=== PATIENT | female | born 1940 | race Caucasian/White ===

== ENCOUNTER 2017-01-17 12:01 | Inpatient (IN) | payer MEDICARE, BC ==
[2017-01-17 13:04] LABS: Hematocrit 43 % (35-47); Hemoglobin 14.1 g/dl (12.0-16.0); Mean Corpuscular HGB Conc 33 g/dl (31-36); Mean Corpuscular Hemoglobin 28 pg (27-31); Mean Corpuscular Volume 86 fL (80-97); Mean Platelet Volume 9 um3 (7.4-10.4); Red Blood Count 5.01 10^6/ul (4.0-5.4); Red Cell Distribution Width 14 % (10.5-15); White Blood Count 14.3 10^3/ul (3.5-10.8)
[2017-01-17 13:30] LABS: Albumin 3.6 g/dL (3.2-5.2); BUN/Creatinine Ratio 32.2 (8-20); Calcium 9.5 mg/dL (8.6-10.3); EGFR African American 127.1 (>60); EGFR Non-African American 98.8 (>60); Globulin 3.4 g/dL (2-4); Magnesium 1.2 mg/dL (1.9-2.7); Total Bilirubin 0.4 mg/dL (0.2-1.0)
[2017-01-17 13:34] LABS: Troponin I 0.13 ng/mL (<0.04)
[2017-01-17] MEDS ORDERED: Iodixanol* (CONTRAST) 320 MG/ML 100 ML SDV IV ONE (13:56)
--- NOTE | 2017-01-17 14:01 | RAD ---
INDICATION: Chest pain COMPARISON: May 13, 2003 TECHNIQUE: An AP portable view obtained at 1320 hours is submitted. FINDINGS: Bones/Soft Tissues: There are no acute bony findings. There is left-sided cardiac pacemaker. Cardiomediastinal: The cardiac silhouette is at the upper limits of normal in size. There is interstitial prominence likely related to mild passive congestion. There was a similar appearance previously, however. Lungs: There are no focal infiltrates. Pleura: There are no pleural effusions. Other: None IMPRESSION: SUSPECT MILD PULMONARY VENOUS CONGESTION. THIS APPEARS CHRONIC
[2017-01-17] MEDS ORDERED: Morphine INJ* 2 MG/ML 1 ML SYRINGE IV PRN (14:32)
[2017-01-17] MEDS ORDERED: Dextrose 50% Syringe 50 ML* 25 GM/50 ML SYRINGE IV PUSH PRN (14:46)
--- NOTE | 2017-01-17 15:34 | RAD ---
CLINICAL HISTORY: Right upper quadrant pain, chest pain COMPARISON: February 15, 2012 TECHNIQUE: Multiple contiguous axial CT scans were obtained of the abdomen and pelvis after the administration of intravenous contrast. Coronal and sagittal multiplanar reformations are submitted for review. Oral contrast was administered. Delayed images were obtained through the abdomen and pelvis. FINDINGS: LUNG BASES: There is a small right pleural effusion LIVER: The liver is diffusely low in attenuation compared to the spleen. There are no focal hepatic parenchymal masses. BILE DUCTS: There is no intrahepatic or extrahepatic biliary dilatation. GALLBLADDER: The gallbladder is not visualized. Surgical clips are noted in the gallbladder fossa. PANCREAS: There has been interval development of a low-attenuation cystic lesion of the body of the pancreas measuring 1.3 cm in size. There is no pancreatic ductal dilatation. SPLEEN: Normal in size and appearance. UPPER GI TRACT: Evaluation of the gastrointestinal tract is limited by incomplete gastric distention. The upper GI tract is unremarkable. SMALL BOWEL AND MESENTERY: The small bowel is normal in contour, course, and caliber. There is no obstruction or dilatation. COLON: There are multiple diverticula of the sigmoid colon. There is no pericolonic inflammatory change. ADRENALS: Normal bilaterally. KIDNEYS: The kidneys are normal in shape, size, contour, and axis. There is no hydronephrosis or nephrolithiasis. BLADDER: The bladder is smooth in contour. PELVIC ORGANS: The uterus and adnexa are grossly normal for technique. AORTA: There is calcific atherosclerotic disease of the abdominal aorta and its branches, without aneurysmal dilatation IVC: Unremarkable LYMPH NODES: There is no lymphadenopathy by size criteria. ABDOMINAL WALL: There is no evidence for abdominal wall hernia. BONES AND SOFT TISSUES: There are mild diffuse degenerative changes. OTHER: None IMPRESSION: 1. 1.3 CM LOW-ATTENUATION CYSTIC LESION OF THE BODY OF THE PANCREAS. 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 THERE IS NO PANCREATIC DUCTAL DILATATION. 2. FATTY LIVER. 3. STATUS POST COLOSTOMY. 4. DIVERTICULOSIS. 5. ATHEROSCLEROSIS. 6. SMALL RIGHT PLEURAL EFFUSION
[2017-01-17] MEDS: Nitroglycerin 0.2 MG/HR PATCH* (5 MG) TRANSDERM SCH (15:46)
[2017-01-17] MEDS: Insulin LISPRO* 1 UNITS UNIT SUBCUT SCH (16:42)
[2017-01-17] MEDS ORDERED: Warfarin TAB(*) 5 MG PO SCH (17:00)
--- NOTE | 2017-01-17 17:19 | ED ---
Deric Martinez Adam, scribed for Sonja Barrientos MD on 01/17/17 at 1256 . HPI Chest Pain - HPI Summary HPI Summary: Pt is a 76 year old female presenting with CP. She went to her PCP for routine lab work today but after complaining of CP she was sent to the ED. She states that she has been having CP intermittently for months. She also reports CROUCH and she currently "does not feel good." EMS administered NTG en route with no relief and they also gave ASA. Pt denies calf pain. PMHx includes ICD, A Fib ( on coumadin), DM, HTN, and HLD. Surgical Hx of choly and appy. No Hx of blood clots or lung disease. FMHx of OK. - History of Current Complaint Time Seen by Provider: 01/17/17 12:35 Hx Obtained From: Patient Onset/Duration: Started Weeks Ago, Atraumatic, Still Present Timing: Intermittent Initial Severity: Moderate Current Severity: Moderate Chest Pain Location: Discrete at: - Epigastrium/RUQ Aggravating Factor(s): Nothing Alleviating Factor(s): Nothing Associated Signs and Symptoms: Positive: Other: - CROUCH - Allergy/Home Medications Allergies/Adverse Reactions: Allergies Allergy/AdvReac Type Severity Reaction Status Date / Time Acetaminophen Allergy Swelling Verified 02/10/16 17:26 Of Face,Lips,& Throat Diazepam [From Valium] Allergy Blurred Verified 02/10/16 17:26 Vision Diphenhydramine Allergy Blurred Verified 02/10/16 17:26 [From Benadryl] Vision Niacin Allergy Itching Verified 02/10/16 17:26 Simvastatin [From Vytorin] Allergy Muscle Ache Verified 02/10/16 17:26 Statins Allergy Muscle Ache Verified 02/10/16 17:26 Home Medications: Home Medications Atenolol TAB* [Tenormin TAB* 50 MG] 25 mg PO QAM 01/17/17 [History Confirmed ] Atenolol TAB* [Tenormin TAB* 50 MG] 50 mg PO BEDTIME 01/17/17 [History Confirmed 01/17/17] Cholecalciferol [Vitamin D3] 800 unit PO DAILY 01/17/17 [History Confirmed 01/17] Cyanocobalamin TAB* [Vitamin B12 TAB*] 500 - 1,000 mcg PO DAILY 01/17/17 [ History Confirmed 01/17/17] Digoxin TAB* [Lanoxin TAB*] 0.125 mg PO DAILY 01/17/17 [History Confirmed ] Diltiazem CD CAP* [Cardizem CD CAP*] 360 mg PO DAILY 01/17/17 [History Confirmed 01/17/17] Hydrochlorothiazide TAB* [Hydrodiuril TAB*] 25 mg PO DAILY 01/17/17 [History Confirmed 01/17/17] Levothyroxine TAB* [Synthroid TAB*] 137 mcg PO DAILY 01/17/17 [History Confirmed 01/17/17] Nitroglycerin TAB 0.4 MG* 0.4 mg SL Q5M PRN 01/17/17 [History Confirmed 01/17/17 ] Nitroglycerin [Nitro-Dur] 0.2 mg TOPICAL QAM 01/17/17 [History Confirmed ] [place]-3 Fatty Acids [[place] 3] 3 cap PO DAILY 01/17/17 [History Confirmed ] Oxybutynin TAB* [Ditropan TAB*] 2.5 mg PO BID 01/17/17 [History Confirmed ] Pitavastatin (NF) [Livalo (NF)] 1 mg PO EVERY OTHER DAY 01/17/17 [History Confirmed 01/17/17] Potassium Chloride Microencaps [Klor-Con M20] 40 meq PO DAILY 01/17/17 [History Confirmed 01/17/17] Ramipril CAP* [Altace CAP*] 2.5 mg PO DAILY 01/17/17 [History Confirmed 01/17/17 ] Torsemide [Demadex 10 MG] 10 mg PO .THREE TIMES A WEEK PRN 01/17/17 [History Confirmed 01/17/17] glipiZIDE TAB.XL* [Glucotrol XL*] 5 mg PO QAM 01/17/17 [History Confirmed ] metFORMIN* [Glucophage 850 MG TAB *] 850 mg PO TID 01/17/17 [History Confirmed 01/17/17] PMH/Surg Hx/FS Hx/Imm Hx Endocrine/Hematology History: Reports: Hx Anticoagulant Therapy, Hx Diabetes - TYPE II- ON ORAL MEDICATION FOR, Hx Thyroid Disease - HYPOTHYROID Cardiovascular History: Reports: Hx Angina, Hx Coronary Artery Disease, Hx Hypercholesterolemia, Hx Hypertension - ON MEDICATION FOR, Hx Pacemaker/ICD - DR. RANGEL FOLLOWS, Hx Valvular Heart Disease, Other Cardiovascular Problems/ Disorders - HX OF A-FIB;CAROTID STENOSIS Denies: Hx Myocardial Infarction Respiratory History: Denies: Hx Asthma, Hx Chronic Obstructive Pulmonary Disease (COPD) GI History: Reports: Hx Ulcer - HX OF Musculoskeletal History: Reports: Hx Arthritis - NECK, HANDS, KNEES Denies: Hx Osteoporosis Sensory History: Reports: Hx Cataracts, Hx Contacts or Glasses - GLASSES-READING Denies: Hx Hearing Aid Opthamlomology History: Reports: Hx Cataracts, Hx Contacts or Glasses - GLASSES- READING - Surgical History Surgery Procedure, Year, and Place: appe-1947, miscarriages wtih D&c. pacer- 2006 AND 2013. tonsils AND ADENOIDECTOMY-1946. carotid endarterectomy- BILATERAL. [place]. ADHESIONS-1979. BILATERAL CATARACTS-2006 Hx Anesthesia Reactions: No Infectious Disease History: Reports: History Other Infectious Disease - [facility] - 2002 Denies: Hx Clostridium Difficile, Hx Hepatitis, Hx Human Immunodeficiency Virus (HIV), Hx of Known/Suspected MRSA, Hx Shingles, Hx Tuberculosis - Family History Known Family History: Positive: Cardiac Disease - CAD, [place] - Social History Occupation: Retired Lives: Alone Alcohol Use: None Hx Substance Use: No Substance Use Type: Reports: None Hx Tobacco Use: Yes Smoking Status (MU): Former Smoker Amount Used/How Often: 3/4 PPD X 20 YEARS Have You Smoked in the Last Year: No Review of Systems Positive: Chest Pain Positive: Shortness Of Breath Negative: Myalgia All Other Systems Reviewed And Are Negative: Yes Physical Exam Triage Information Reviewed: Yes Vital Signs On Initial Exam: Initial Vitals Temp Pulse Resp BP Pulse Ox 98.4 F 62 20 153/57 96 01/17/17 12:39 01/17/17 12:39 01/17/17 12:39 01/17/17 12:39 01/17/17 12:39 Vital Signs Reviewed: Yes Appearance: Positive: Well-Appearing, No Pain Distress Skin: Positive: Warm, Skin Color Reflects Adequate Perfusion, Dry Eyes: Positive: EOMI, [place] ENT: Positive: Pharynx normal, TMs normal Neck: Positive: Supple, Nontender Respiratory/Lung Sounds: Positive: Clear to Auscultation, Breath Sounds Present Cardiovascular: Positive: RRR - Heart sounds are distant. Negative: Murmur, Rub Abdomen Description: Positive: Soft, Other: - RUQ/epigastric tenderness. Negative: Distended, Guarding Bowel Sounds: Positive: Present Musculoskeletal: Positive: Strength/ROM Intact. Negative: Edema Left, Edema Right Neurological: Positive: Sensory/Motor Intact, Alert, Oriented to Person Place, Time, CN Intact II-III Psychiatric: Positive: Affect/Mood Appropriate Diagnostics - Vital Signs Vital Signs Temp Pulse Resp BP Pulse Ox 01/17/17 13:00 65 20 153/57 92 01/17/17 12:53 72 22 92 01/17/17 12:51 171/62 01/17/17 12:39 98.4 F 62 20 153/57 96 - Laboratory Lab Results: Lab Results 01/17/17 01/17/17 01/17/17 Range/Units 12:55 12:55 12:55 WBC 14.3 H (3.5-10.8) 10^3/ul RBC 5.01 (4.0-5.4) 10^6/ul Hgb 14.1 (12.0-16.0) g/dl Hct 43 (35-47) % MCV 86 (80-97) fL MCH 28 (27-31) pg MCHC 33 (31-36) g/dl RDW 14 (10.5-15) % Plt Count 275 (150-450) 10^3/ul MPV 9 (7.4-10.4) um3 Neut % (Auto) 82.0 (38-83) % Lymph % (Auto) 10.4 L (25-47) % [place] % (Auto) 6.8 (1-9) % Eos % (Auto) 0.4 (0-6) % Baso % (Auto) 0.4 (0-2) % Absolute Neuts (auto) 11.7 H (1.5-7.7) 10^3/ul Absolute Lymphs (auto) 1.5 (1.0-4.8) 10^3/ul Absolute Monos (auto) 1.0 H (0-0.8) 10^3/ul Absolute Eos (auto) 0.1 (0-0.6) 10^3/ul Absolute Basos (auto) 0.1 (0-0.2) 10^3/ul Absolute Nucleated RBC 0.02 10^3/ul Nucleated RBC % 0.1 INR (Anticoag Therapy) (0.89-1.11) D-Dimer, Quantitative (Less Than 230) ng/mL Sodium 136 (133-145) mmol/L Potassium 4.0 (3.5-5.0) mmol/L Chloride 99 L (101-111) mmol/L Carbon Dioxide 28 (22-32) mmol/L Anion Gap 9 (2-11) mmol/L BUN 19 (6-24) mg/dL Creatinine 0.59 (0.51-0.95) mg/dL Est GFR ( Amer) 127.1 (>60) Est GFR (Non-Af Amer) 98.8 (>60) BUN/Creatinine Ratio 32.2 H (8-20) Glucose 161 H (70-100) mg/dL Lactic Acid 2.9 H* (0.5-2.0) mmol/L Calcium 9.5 (8.6-10.3) mg/dL Magnesium 1.2 L (1.9-2.7) mg/dL Total Bilirubin 0.40 (0.2-1.0) mg/dL AST 17 (13-39) U/L ALT 17 (7-52) U/L Alkaline Phosphatase 55 (34-104) U/L Troponin I 0.13 H* (<0.04) ng/mL Total Protein 7.0 (6.4-8.9) g/dL Albumin 3.6 (3.2-5.2) g/dL Globulin 3.4 (2-4) g/dL Albumin/Globulin Ratio 1.1 (1-3) Lipase 16 (11.0-82.0) U/L 01/17/17 Range/Units 12:55 WBC (3.5-10.8) 10^3/ul RBC (4.0-5.4) 10^6/ul Hgb (12.0-16.0) g/dl Hct (35-47) % MCV (80-97) fL MCH (27-31) pg MCHC (31-36) g/dl RDW (10.5-15) % Plt Count (150-450) 10^3/ul MPV (7.4-10.4) um3 Neut % (Auto) (38-83) % Lymph % (Auto) (25-47) % [place] % (Auto) (1-9) % Eos % (Auto) (0-6) % Baso % (Auto) (0-2) % Absolute Neuts (auto) (1.5-7.7) 10^3/ul Absolute Lymphs (auto) (1.0-4.8) 10^3/ul Absolute Monos (auto) (0-0.8) 10^3/ul Absolute Eos (auto) (0-0.6) 10^3/ul Absolute Basos (auto) (0-0.2) 10^3/ul Absolute Nucleated RBC 10^3/ul Nucleated RBC % INR (Anticoag Therapy) 2.57 H (0.89-1.11) D-Dimer, Quantitative < 200 (Less Than 230) ng/mL Sodium (133-145) mmol/L Potassium (3.5-5.0) mmol/L Chloride (101-111) mmol/L Carbon Dioxide (22-32) mmol/L Anion Gap (2-11) mmol/L BUN (6-24) mg/dL Creatinine (0.51-0.95) mg/dL Est GFR ( Amer) (>60) Est GFR (Non-Af Amer) (>60) BUN/Creatinine Ratio (8-20) Glucose (70-100) mg/dL Lactic Acid (0.5-2.0) mmol/L Calcium (8.6-10.3) mg/dL Magnesium (1.9-2.7) mg/dL Total Bilirubin (0.2-1.0) mg/dL AST (13-39) U/L ALT (7-52) U/L Alkaline Phosphatase (34-104) U/L Troponin I (<0.04) ng/mL Total Protein (6.4-8.9) g/dL Albumin (3.2-5.2) g/dL Globulin (2-4) g/dL Albumin/Globulin Ratio (1-3) Lipase (11.0-82.0) U/L Result Diagrams: 01/17/17 12:55 01/17/17 12:55 Lab Statement: Any lab studies that have been ordered have been reviewed, and results considered in the medical decision making process. - Radiology CXR Radiology Interpretation Completed By: Radiologist - IMPRESSION: SUSPECT MILD PULMONARY VENOUS CONGESTION. THIS APPEARS CHRONIC - CT A/P CT Interpretation Completed By: Radiologist - IMPRESSION: 1. 1.3 CM LOW- ATTENUATION CYSTIC LESION OF THE BODY OF THE PANCREAS. 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 THERE IS NO PANCREATIC DUCTAL DILATATION. 2. FATTY LIVER. 3. STATUS POST COLOSTOMY. - EKG 13:58 Cardiac Rate: NL - 68 BPM EKG Interpretation: Paced rhythm - Additional Comments Diagnostic Additional Comments: Troponin I - 0.13 (12:55), 0.98 (15:49) Lactic Acid - 2.9 Chest Pain Course/Dx - Course Course Of Treatment: Case discussed early with Dr. Wheeler given pts cp and abd pain she accepted pt for admission. pt did have a bump in her troponin and her CT abd after pt was already onfloor ended up showing a pancreatic mass. - Diagnoses Provider Diagnoses: CHEST PAIN R/O ACS - Provider Notifications Discussed Care Of Patient With: Dr. Negrete at 13:15. She accepts admission of the patient. Discharge - Discharge Plan Condition: Stable Disposition: ADMITTED TO [facility] documentation as recorded by the Deric esparza Adam accurately reflects the service I personally performed and the decisions made by me, Sonja Barrientos MD.
[2017-01-17] MEDS: Oxybutynin TAB* 5 MG PO SCH (20:26)
[2017-01-17] MEDS: Atenolol TAB* 50 MG PO SCH (20:26)
[2017-01-17] MEDS ORDERED: Metoprolol Tartrate TAB* 25 MG PO SCH (21:00)
--- NOTE | 2017-01-17 22:48 | HP ---
HOSPITAL MEDICINE HISTORY AND PHYSICAL: DATE OF ADMISSION: 01/17/17 PRIMARY CARE PHYSICIAN: Dr. Cohen. ATTENDING PHYSICIAN: Dr. Grier * (dictation provided by Demetria Mata NP) CHIEF COMPLAINT: Chest pain. HISTORY OF PRESENT ILLNESS: Ms. Saravia is a 76-year-old female with a past medical history of diabetes; atrial fibrillation, on warfarin; coronary artery disease; and CHF who presents today to the hospital with concern for chest pain. Ms. Saravia states that she has had ongoing chest pain for the past 2 to 3 months. 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 She states that she has been now having chest pain when walking across the parking lot from her car into her home. She had an episode of chest pain, which was associated with nausea while waiting to have her tires replaced at [employer]. She has been woken from sleep with chest pain. Today, she was having a sharp chest pain midsternally to the epigastric region at home. She states that it radiates up into both of her jaws and down into her right arm. She stated that it was very severe. She drove from her home to Dr. Cohen's office where she was scheduled for a routine INR. She continued to have pain throughout the drive and actually had to line puller to the side of the road due to the severity of the pain to take a nitroglycerin tablet. She took 2 nitroglycerin tablets and despite this, she continued to have pain. She went on to Dr. Cohen's office for the scheduled blood draw where she told staff that she was not feeling well. When she described her symptoms of severe chest pain, they evaluated her and had her sent to the emergency room. The patient states that her pain continued up until the time she arrived in the ED and she is now pain free. She denies any recent fevers, chills, cough, sore throat, shortness of breath, nausea, abdominal pain. She states that she has had ongoing chronic diarrhea for about 3 years. Ms. Saravia reported to have had two cardiac catheterizations in 2015. When I asked her why, she states that it was "just routine." She was seen by Dr. Miles in October 2015 with the cath that showed questionable left main stenosis and therefore she was asked to come back and was seen on 12/19/15 for a repeat cardiac catheterization. This actually showed nonischemic functional flow through the left main into the LAD and into the circumflex and the plan was for continued medical management. The patient states as of last year, she had not been having pain and this new pain had developed over the past 2 to 3 months. In the emergency room, Ms. Saravia had a chest x-ray, which showed mild pulmonary vascular congestion, which appeared to be chronic in nature. She had an EKG, which showed a partially paced rhythm and partial atrial fibrillation. There are some significant T-wave inversions in II, III, and aVF although it is difficult to interpret in comparison with her previous EKGs, but it does not appear new. She has a troponin, which was elevated to 2.13, lactic acid 2.9. Her white blood cell count is elevated also at 14.3. PAST MEDICAL HISTORY: 1. Type 2 diabetes, non-insulin dependent. 2. Atrial fibrillation, on warfarin. 3. Coronary artery disease. 4. History of bradycardia, status post pacemaker. 5. CHF, diastolic. 6. Hyperlipidemia. 7. Hypothyroidism. 8. Obesity. 9. Hypertension. 10. Aortic stenosis, moderate. 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 12. History of cholecystectomy. 13. History of appendectomy. 14. History of basal cell carcinoma on her nose, status post excision. 15. History of lysis of adhesions. MEDICATIONS: 1. Cholecalciferol 800 units p.o. daily. 2. Cyanocobalamin 500 to 1000 mcg p.o. daily. 3. Nitroglycerin 0.2 mg topically q.a.m. 4. Nitroglycerin tablets 0.4 mg sublingual q.5 minutes p.r.n. 5. [place] 3 fatty acids 3 capsules p.o. daily. 6. Pitavastatin 1 mg p.o. every other day. 7. Torsemide 10 mg p.o. 3 times weekly as needed. 8. Glipizide 5 mg p.o. q.a.m. 9. Metformin 850 mg p.o. t.i.d. 10. Atenolol 20 mg in the a.m. and 50 mg in p.m. 11. Digoxin 0.125 mg p.o. daily. 12. Diltiazem CD 360 mg p.o. daily. 13. Hydrochlorothiazide 25 mg p.o. daily. 14. Levothyroxine 137 mcg p.o. daily. 15. Oxybutynin 2.5 mg p.o. b.i.d. 16. Potassium chloride 40 mEq p.o. daily. 17. Ramipril 2.5 mg p.o. daily. 18. Warfarin 5 mg p.o. daily. ALLERGIES: To ACETAMINOPHEN, DIAZEPAM, DIPHENHYDRAMINE, NIACIN, SIMVASTATIN, and ALL STATINS. FAMILY HISTORY: Father had heart disease, mother had lung cancer. SOCIAL HISTORY: The patient quit smoking 14 years ago. She denies alcohol or drug use. She states that her daughter, Kierra Doran, would be her healthcare proxy. She currently lives alone. REVIEW OF SYSTEMS: Constitutional: No fevers, no chills, no unintended weight loss. Cardiac: Positive for chest pain as per above. Positive for edema intermittently for which she uses Demadex. Respiratory: No cough, no hemoptysis , no shortness of breath. GI: No nausea or vomiting. Positive for diarrhea, which has been ongoing and chronic for the past 3 years. No abdominal pain. : No gross hematuria or dysuria. Neuro: No focal weakness or sensory loss. She does have history of Guillain-[place]. Eyes: No visual complaints. ENT: No dysphagia. Musculoskeletal: No arthralgias or myalgias. Skin: No rashes or lesions. Psych: No depression or anxiety. PHYSICAL EXAMINATION GENERAL: Ms. Saravia is sitting up in the bed. She is in no acute distress. She is calm and cooperative with my examination. VITAL SIGNS: Temperature 98.4, heart rate 64, respiratory rate 20, O2 saturation is 93% on room air, blood pressure 162/65. HEART: S1 and S2. No murmur, rubs, or gallop and regular. LUNGS: Clear to auscultation bilaterally with no accessory muscle use and good aeration. ABDOMEN: Soft, nontender with bowel sounds positive x4. EXTREMITIES: No cyanosis or edema. SKIN: Intact. NEUROLOGIC: She is alert and oriented x3. She moves all extremities equally. There is no facial asymmetry or focal weakness. Extraocular movements are intact. LABORATORY DATA/DIAGNOSTIC STUDIES: WBC 14.3, hemoglobin 14.1, hematocrit 43, platelet count 275. Sodium 136, potassium 4.0, chloride 99, serum bicarb 28, BUN 19, creatinine 0.59, glucose 161, lactic acid 2.9, magnesium 1.2. Troponin 0.13. INR is 2.57. Chest x-ray shows mild pulmonary vascular congestion, which is unchanged from baseline, and her EKG shows AFib flutter with V-paced complexes. There are ST depressions in I and aVL, which appear new. ASSESSMENT: Ms. Saravia is a 76-year-old female with a past medical history of diabetes, atrial fibrillation, bradycardia with pacemaker placement, hypertension, obesity, who presents today to the hospital with concern for worsening chest pain over the past 2 to 3 months. Her first troponin is 0.13. Our plans are for observation in the hospital for the followin. Chest pain with concern for early NSTEMI. The patient's story is very concerning for acute coronary syndrome and her first troponin is positive. In addition, her EKG appears to show some new T-wave inversions. Our plan will be for telemetry monitoring. She will have repeat troponins x2 or until they peak. She will have morphine, oxygen, nitroglycerin, aspirin, and EKG with any further chest pain. She will go on for cardiac stress test in the a.m. I do note that the patient had normal cardiac catheterization, at least a nonischemic cardiac evaluation in November 2015. We did discuss the case with Dr. Wylie and he does recommend to continue with rule out for acute coronary syndrome per routine. I will note that the patient is going for a CT of the abdomen and pelvis to rule out any aortic dissection given the severity of her pain as ordered per the ED providers. The patient did receive aspirin in the emergency room and she is fully anticoagulated on warfarin. 2. Leukocytosis with lactic acidosis. The patient's white blood cell count is elevated. This could be related to acute coronary syndrome. I see no evidence of infection at this time. She has no evidence of pneumonia or urinary tract infection and question whether not her leukocytosis perhaps is related to developing myocardial infarction and we will be treating that as per above. 3. Atrial fibrillation. The patient is intermittently paced and rate is controlled. Plan to continue her digoxin, her atenolol, her diltiazem, and her warfarin. 4. History congestive heart failure. The patient takes Demadex intermittently. She currently does not have any significant lower extremity edema. We will continue to dose that as needed and she will continue on her JOSEPH inhibitor and beta- wayne. 5. Type 2 diabetes. The patient is on metformin and glipizide at home. She will be holding that and she will have blood glucoses q.a.c. with lispro sliding scale. 6. Hypomagnesemia. Plan to replete and recheck in a.m. 7. Hypertension. Continue home care chaplain of atenolol, diltiazem, hydrochlorothiazide, and ramipril. 8. Hypothyroidism. Continue levothyroxine. 9. Hyperlipidemia. Plan to hold statin as the patient is only on low dose every other day at home and the agent that we do not carry in the hospital and she is allergic to other agents. 10. DVT prophylaxis with therapeutic INR, on warfarin. 11. Code status DNR with trial of intubation. 12. Disposition to telemetry unit. TIME SPENT: Approximately 60 minutes were spent on admission of this patient; more than half time spent with the patient at the bedside reviewing the events leading up to this hospitalization, performing the physical examination, and reviewing my plan of care. DEMETRIA MATA NP CC: Dr. Cohen* [id number]/CPS #: [id number] [place]
[2017-01-18] MEDS: Nitroglycerin TAB 0.4 MG* 0.4 MG TAB SL PRN ×3 (01:35→01:55)
[2017-01-18] MEDS ORDERED: LORazepam INJ* 2 MG/ML 1 ML VIAL IV ONE (01:52)
[2017-01-18 01:53] LABS: BUN/Creatinine Ratio 23.6 (8-20); Calcium 8.8 mg/dL (8.6-10.3); EGFR African American 137.8 (>60); EGFR Non-African American 107.2 (>60); HDL Cholesterol 35.9 mg/dL; Magnesium 1.6 mg/dL (1.9-2.7); Potassium 4.2 mmol/L (3.5-5.0)
[2017-01-18 03:28] LABS: Troponin I 1.32 ng/mL (<0.04)
[2017-01-18 06:35] LABS: Hematocrit 42 % (35-47); Hemoglobin 13.8 g/dl (12.0-16.0); Mean Corpuscular HGB Conc 33 g/dl (31-36); Mean Corpuscular Hemoglobin 28 pg (27-31); Mean Corpuscular Volume 86 fL (80-97); Mean Platelet Volume 9 um3 (7.4-10.4); Red Blood Count 4.89 10^6/ul (4.0-5.4); Red Cell Distribution Width 14 % (10.5-15); White Blood Count 13.5 10^3/ul (3.5-10.8)
[2017-01-18] MEDS ORDERED: Heparin DRIP 25,000 UNITS(*) 25,000 UNITS/500 ML BAG IVPB SCH (07:30)
[2017-01-18] MEDS: Insulin LISPRO* 1 UNITS UNIT SUBCUT SCH ×3 (07:39→16:27)
[2017-01-18] MEDS ORDERED: Aspirin TAB* 325 MG PO ONE (07:39)
--- NOTE | 2017-01-18 07:51 | PN ---
Subjective Date of Service: 01/18/17 Interval History: This is a 76 yo female with a h/o DM, afib for which she is anticoagulated with Coumadin, CAD, and mod who presented yesterday with c/o CP. Initial trop 0.13. She had one additional episode of CP overnight, controlled with nitro. Patient's EKG is difficult to interpret as she is intermittently paced, but underlying rhythm appears to be sinus with Twave inversion in II, III, aVF along with ST dep in V4-6. This am, patient is free of CP. Denies abd pain, n/v. No diaphoresis. Trop has risen to 2.7 overnight. Objective Active Medications: Aspirin (Aspirin Ec Low Dose*) 81 mg PO DAILY [facility] Atenolol (Tenormin Tab*) 25 mg PO QAM [facility] Atenolol (Tenormin Tab*) 50 mg PO BEDTIME [facility] Last Admin: 01/17/17 20:26 Dose: 50 mg Dextrose (D50w Syringe 50 Ml*) 12.5 gm IV PUSH .FOR FS < 60 - SS PRN PRN Reason: FS < 60 Digoxin (Lanoxin Tab*) 0.125 mg PO DAILY [facility] Diltiazem HCl (Cardizem Cd Cap*) 360 mg PO DAILY [facility] Hydrochlorothiazide (Hydrodiuril Tab*) 25 mg PO DAILY [facility] Insulin Human Lispro (Humalog*) 0 units SUBCUT AC [facility] PRN Reason: Protocol Last Admin: 01/18/17 07:39 Dose: Not Given Levothyroxine Sodium (Synthroid Tab*) 137 mcg PO DAILY [facility] Morphine Sulfate (Morphine Inj (Syringe)*) 2 mg IV Q2H PRN PRN Reason: Chest Pain Last Admin: 01/18/17 01:39 Dose: 2 mg Nitroglycerin (Nitroglycerin 5 Mg Patch*) 1 patch TRANSDERM DAILY [facility] Last Admin: 01/17/17 15:46 Dose: 1 patch Nitroglycerin (Nitroglycerin Tab 0.4 Mg*) 0.4 mg SL Q5M PRN PRN Reason: ANGINA Last Admin: 01/18/17 01:55 Dose: 0.4 mg Oxybutynin Chloride (Ditropan Tab*) 2.5 mg PO BID [facility] Last Admin: 01/17/17 20:26 Dose: 2.5 mg Potassium Chloride (Klor Con Er Tab*) 40 meq PO DAILY [facility] Ramipril (Altace Cap*) 2.5 mg PO DAILY [facility] Warfarin Sodium (Coumadin Tab(*)) 5 mg PO 1700 [facility] PRN Reason: Protocol Last Admin: 01/17/17 16:34 Dose: 5 mg Vital Signs: Temp Pulse Resp BP Pulse Ox 98.7 F 86 16 137/46 94 01/18/17 07:30 01/18/17 07:30 01/18/17 07:30 01/18/17 07:30 01/18/17 07:30 Appearance: Well appearing, in NAD Respiratory: Symmetrical Chest Expansion and Respiratory Effort, Clear to Auscultation Cardiovascular: RRR, - - murmur appreciated Abdominal: NL Sounds; No Tenderness; No Distention Extremities: No Edema Skin: No Rash or Ulcers Neurological: Alert and Oriented x 3 Result Diagrams: 01/18/17 06:15 01/18/17 01:30 Additional Lab and Data: Laboratory Tests 01/17/17 01/17/17 01/17/17 12:55 15:49 19:15 Troponin I 0.13 H* 0.98 H* 1.82 H* 01/18/17 01/18/17 01:30 06:15 Troponin I 1.32 H* 2.71 H* Diagnostic Imaging: CXR - mild PVC CT abd/pelvis with contrast - 1.3 cm cyst pancreatic lesion, no ductal dilitation, no other acute pathology Assess/Plan/Problems-Billing Assessment: This is a 76 yo female with a h/o DM, afib for which she is anticoagulated with Coumadin, mod and CAD who presented with c/o CP. She has been admitted with concern for NSTEMI. - Patient Problems (1) NSTEMI (non-ST elevated myocardial infarction) Comment: Trop has risen to 2.7 overnight, she did one have one additional episode of CP overnight, CP free at this time EKG changes, but difficult to determine the acuity Appreciate consultation from shipper/receiver, Dr Wylie. Discussed changes that occured overnight, he will re-evaluate patient this am for likely cardiac cath Cath from ~1 yr ago demonstrated left main disease that was non-occlusive, she was determined not to be a good surgical candidate at that time due to severity of plaque within the aortic arch ASA and BB ordered Anticoagulated with Coumadin Dr Wylie advised against loading with Brilinta or Plavix at this time until appropriate disposition is planned (2) Diabetes Comment: NIDDM (3) Afib Comment: Anticoagulated with Coumadin Rate controlled (4) Moderate aortic stenosis (5) CAD (coronary artery disease) Comment: Non-occlusive left main disease without prior stenting (6) DNR (do not resuscitate) (7) DVT prophylaxis Comment: Fully anticoagulated with Coumadin Status and Disposition: Patient requires continued hospital stay. Will make inpatient. Awaiting re- evaluation from cardiology
[2017-01-18] MEDS ORDERED: Heparin VIAL(*) 5000 UNITS/ML VIAL (FIVE THOUSAND) IV SCH (08:00)
[2017-01-18] MEDS: Diltiazem CD CAP* 180 MG PO SCH (08:33)
[2017-01-18] MEDS: Oxybutynin TAB* 5 MG PO SCH ×2 (08:34→20:19)
[2017-01-18] MEDS: Digoxin TAB* 0.125 MG PO SCH (08:35)
[2017-01-18] MEDS: Hydrochlorothiazide TAB* 25 MG PO SCH (08:35)
[2017-01-18] MEDS: Potassium Chlor TAB* 20 MEQ TAB.ER PO SCH (08:35)
[2017-01-18] MEDS: Nitroglycerin 0.2 MG/HR PATCH* (5 MG) TRANSDERM SCH (08:36)
[2017-01-18] MEDS: Levothyroxine TAB* 137 MCG TAB PO SCH (08:36)
[2017-01-18] MEDS: Ramipril CAP* 2.5 MG PO SCH (08:36)
[2017-01-18] MEDS ORDERED: Atenolol TAB* 25 MG PO SCH (09:00)
[2017-01-18] MEDS ORDERED: Atenolol TAB* 50 MG PO SCH (10:43)
--- NOTE | 2017-01-18 12:42 | CONS ---
CARDIOLOGY CONSULTATION: DATE OF CONSULT: 01/18/17 INDICATION FOR CONSULTATION: Acute coronary syndrome, coronary artery disease. HISTORY OF PRESENT ILLNESS: The patient is a 76-year-old female with a history of moderate aortic stenosis, history of coronary artery disease, history of atrial fibrillation, status post pacemaker implantation who came to the emergency room with chest pain. The patient came to the emergency room with a complaint of chest discomfort. She describes it as pain in the center of her chest. It does not radiate anywhere. It is sometimes in the epigastric area. She does get some degree of nausea associated with it. The patient came to the emergency room. Her initial troponin level was 0.98 and she was admitted to the hospital. The patient does have a history of cardiac catheterization in December 2015. At that time, there was intravascular ultrasound and fractional flow reserve of her left main artery and ostial left circumflex artery. There was some concern of significant stenosis. However, Dr. Miles was unable to prove flow abnormality to her coronary arteries. The patient has been on medical therapy since then. The patient was admitted to the hospital. Her initial troponin was elevated at 0.98. Her peak troponin was 2.17. The patient has continued to have intermittent chest pain that is relieved with nitroglycerin. The patient did have a CAT scan of her abdomen, which showed a 1.3 cm mass in her pancreas that is new. PAST MEDICAL HISTORY: The patient does have a history of normal LV function based on an echocardiogram in March of 2015. She does have moderate aortic stenosis with a mean gradient of 14 mmHg. History of diabetes, paroxysmal atrial fibrillation, pacemaker implantation in 2013. OUTPATIENT MEDICATIONS: 1. Calciferol 800 units daily. 2. Vitamin B. 3. Nitroglycerin 0.2 mg topically. 4. [place]-3 fatty acids. 5. Pitavastatin 1 mg every other day. 6. Torsemide 10 mg 3 times a week. 7. Glipizide 5 mg a day. 8. Metformin 850 mg 3 times a day. 9. Atenolol 25 mg in the morning, 50 mg at night. 10. Digoxin 0.125 mg daily. 11. Diltiazem 360 mg a day. 12. Hydrochlorothiazide 25 mg a day. 13. Levothyroxine 137 mcg a day. 14. Ramipril 2.5 mg a day. 15. Coumadin as directed. 16. Potassium 40 mg a day. ALLERGIES: She is intolerant of ACETAMINOPHEN, DIAZEPAM. FAMILY HISTORY: History of heart disease in her father. Lung cancer in her mother. SOCIAL HISTORY: She is . Her daughter is her healthcare proxy. She denies tobacco or alcohol use. PHYSICAL EXAM: Height is 5 feet 4 inches, weight 202 pounds, temperature 98.7, heart rate is 83, respiratory rate is 16, oxygen saturation 94% on room air, blood pressure 137/46. Sclerae anicteric. Oropharynx is pink without erythema. Carotids are 2+ without bruits. JVD is normal. Thyroid is normal. Cardiac Exam: S1, S2 with a 2/6 systolic ejection murmur. No diastolic murmur. PMI is normal. Lungs are clear to auscultation bilaterally. There is no dullness to percussion. Abdomen is soft, nontender, nondistended with normoactive bowel sounds. Extremities show 1+ edema. There is 2+ pulses in the dorsalis pedis and popliteal. The patient is awake and alert and oriented. She moves all 4 extremities equally. DIAGNOSTIC STUDIES/LAB DATA: Her EKG demonstrates normal sinus rhythm with ventricularly paced rhythm. Laboratory Studies: Chemistries within normal limits. BUN 13, creatinine 0.55. AST and ALT are within normal limits. Troponins as described above. LDL cholesterol 304. CBC within normal limits. IMPRESSION: This is a 76-year-old female with a history of coronary artery disease as described above, who came to the emergency room because of chest and abdominal pain. The patient has had an elevation in her troponins consistent with an acute coronary syndrome. The patient has a new diagnosis of a mass in her pancreas of unclear significance. The issues at this time are her acute coronary syndrome. The patient has a complex lesion at the ostium of her left circumflex artery that is not likely to be amenable to stenting. The patient may be able to undergo a bypass surgery; however, she does have a significantly calcified descending aorta. The patient may be amenable to a minimally invasive SEQUEIRA bypass to either LAD or circumflex artery. The question is what is the significance of her mass in her pancreas. If the patient does ultimately return to service inspector to have pancreatic cancer, then it may not be advisable to pursue coronary revascularization. Further recommendations pending her continued workup. At this point, the patient is already anticoagulated with her Coumadin, which will be stopped. The patient's beta blockers will be increased. CC: Dr. Danny Hidalgo; Dr. Clarke Cohen* [id number]/[facility] #: [id number] [facility]
--- NOTE | 2017-01-18 15:51 | ECHO ---
Patient: MAGAN ASHLEY [facility] Rec#: [id number] : 1940 Date: 01/18/2017 Age: 76y Height: 162.6 cm / 64.0 in Weight: 91.6 kg / 201.9 lbs Sex: F BSA: 2 Room#: [facility] Admit Date#: 01/18/2017 Type: Inpatient Referring: Jose Alberto Wylie MD Reading: Shamir Ambrose MD [employer] Consultant: Nerissa Vergara RN RDCS CC: Clarke Cohen MD Transthoracic Echocardiogram Indication: Acute Coronary Syndrome, Aortic Stenosis BP: 149/46 HR: 65 Rhythm: Paced Findings History: CAD, A.fib, pacemaker, CHF, HTN, dyslipidemia, DM, hypothyroidism, nutcracker esophagus, aortic stenosis, obesity, former smoker Technical Comments: The study quality is fair. The study is technically limited due to the patient's smoking history. Left Ventricle: The left ventricular chamber size is normal. Mild to moderate concentric left ventricular hypertrophy is observed. Global left ventricular wall motion and contractility are within normal limits. There is normal left ventricular systolic function. The estimated ejection fraction is 60-65%. There is septal flattening of the interventricular septum consistent with right ventricular volume or pressure overload. There is abnormal ventricular septal wall motion consistent with right ventricular pacemaker. The assessment of diastolic function is non-diagnostic. Left Atrium: The left atrium is moderately dilated. Right Ventricle: The right ventricular chamber size and systolic function are within normal limits. A pacemaker wire is visualized in the right ventricle. Right Atrium: The right atrium is moderately dilated. A pacemaker wire is visualized in the right atrium. Aortic Valve: The aortic valve leaflets are moderately thickened. Systolic excursion of the aortic valve cusps is reduced. There is aortic annular calcification. There is a trace of aortic regurgitation. There is moderate aortic stenosis. The mean gradient of the aortic valve is 12 mmHg. The peak instantaneous gradient of the aortic valve is 20 mmHg. The aortic valve area, by peak velocities, is calculated at 1.2 cm2. The aortic valve area, by VTI's, is calculated at 1.2 cm2. Mitral Valve: Severe mitral annular calcification present. The mitral valve leaflets are mildly thickened. Moderate subvalvular thickening of the mitral valve is visualized. The papillary muscle heads appear calcified. There is mild mitral regurgitation. There is mild mitral stenosis. Tricuspid Valve: The tricuspid valve leaflets are normal. There is mild to moderate tricuspid regurgitation. There is evidence of moderate pulmonary hypertension. Pulmonic Valve: The pulmonic valve appears normal. There is mild pulmonic regurgitation. There is no pulmonic stenosis. Pericardium: There is no significant pericardial effusion. A pericardial fat pad is visualized. Aorta: There is no dilatation of the ascending aorta. The aortic arch is not well visualized. There is no dilation of the aortic root. Pulmonary Artery: The main pulmonary artery appears normal. Venous: The inferior vena cava is dilated. There is an approximate 50% respiratory change in the inferior vena cava dimension. Conclusions The study is technically limited due to the patient's smoking history and obesity. Mild to moderate concentric left ventricular hypertrophy is observed. There is normal left ventricular systolic function. The estimated ejection fraction is 60-65%. There is abnormal ventricular septal wall motion consistent with right ventricular pacemaker. The left atrium is moderately dilated. Extensive calcium is noted in the mitral and aortic annulus. There is mild mitral regurgitation. There is mild mitral stenosis. There is mild to moderate tricuspid regurgitation. There is evidence of moderate pulmonary hypertension. There is mild pulmonic regurgitation. There is a trace of aortic regurgitation. There is moderate aortic stenosis with aortic valve area, by VTI's, is calculated at 1.2 cm2. Compared to report of [facility] study from 04/11/2015 the degree of tricuspid regurgitation has increased (was reported as trace to mild). Measurements Name Value Normal Range RVDdMajor (2D) 3.1 cm (2.2 - 4.4) RAd ISD 4CH 6.1 cm (3.4 - 4.9) RA (A4C)W 4.5 cm (2.9 - 4.6) IVSd (2D) 1.5 cm (0.6 - 1) LVPWd (2D) 1.2 cm (0.6 - 1) LVIDd (2D) 4.3 cm (3.6 - 5.4) LVIDs (2D) 2.9 cm - LV FS (2D) 33 % (25 - 45) Aortic Annulus 1.8 cm (1.4 - 2.6) Ao root diameter (2D) 2.3 cm (2.1 - 3.5) Ascending Ao 2.4 cm (2.1 - 3.4) LA dimension (AP) 2D 3.9 cm (2.3 - 3.8) LAd ISD 4CH 6.2 cm (2.9 - 5.3) LA ISD 4CH W 4 cm (2.5 - 4.5) Name Value Normal Range LA ESV SP 4CH (A/L) 57 ml - LA ESV SP 2CH (A/L) 74 ml - LA ESV BP (A/L) 67 ml - LA ESV BP (A/L) index 34.1 ml/m2 - LA ESV SP 4CH (MOD) 54 ml - LA ESV SP 2CH (MOD) 72 ml - Name Value Normal Range MV E-wave Vmax 1.5 m/sec - MV deceleration time 288 msec - LV septal e' Vmax 0.04 m/sec - LV lateral e' Vmax 0.07 m/sec - LV E:e' septal ratio 37.5 ratio - LV E:e' lateral ratio 21.4 ratio - Name Value Normal Range AV Vmax 2.3 m/sec - AV VTI 54 cm - AV peak gradient 20 mmHg - AV mean gradient 12 mmHg - LVOT diameter 1.6 cm - LVOT Vmax 1.4 m/sec - LVOT VTI 33 cm - LVOT peak gradient 8 mmHg - LVOT mean gradient 4 mmHg - DOI (VTI) 0.61 ratio - DOI (Vmax) 0.61 ratio - SV LVOT 66 ml - CARLOS (continuity Vmax) 1.2 cm2 - CARLOS (continuity VTI) 1.2 cm2 - Name Value Normal Range MV Vmax 1.6 m/sec - MV VTI 33.5 cm - MV peak gradient 10.4 mmHg - MV mean gradient 2.7 mmHg - MV PHT 78 msec - MVA (PHT) 2.8 cm2 - MVA (continuity VTI) 2 cm2 - Name Value Normal Range TR Vmax 2.9 m/sec - TR peak gradient 34 mmHg - RAP 15 mmHg - RVSP 49 mmHg - IVC diameter 2.4 cm - Name Value Normal Range PV Vmax 1 m/sec -
[2017-01-18] MEDS: Atenolol TAB* 50 MG PO SCH (20:19)
[2017-01-19] MEDS: Insulin LISPRO* 1 UNITS UNIT SUBCUT SCH ×2 (08:46→12:38)
[2017-01-19] MEDS: Nitroglycerin 0.2 MG/HR PATCH* (5 MG) TRANSDERM SCH (08:48)
[2017-01-19] MEDS: Levothyroxine TAB* 137 MCG TAB PO SCH (08:52)
[2017-01-19] MEDS: Hydrochlorothiazide TAB* 25 MG PO SCH (08:52)
[2017-01-19] MEDS: Ramipril CAP* 2.5 MG PO SCH (08:52)
[2017-01-19] MEDS: Potassium Chlor TAB* 20 MEQ TAB.ER PO SCH (08:53)
[2017-01-19] MEDS: Digoxin TAB* 0.125 MG PO SCH (08:53)
[2017-01-19] MEDS: Oxybutynin TAB* 5 MG PO SCH (08:53)
[2017-01-19] MEDS: Diltiazem CD CAP* 180 MG PO SCH (08:54)
[2017-01-19] MEDS ORDERED: Aspirin EC Low Dose* 81 MG TAB.EC PO SCH (09:00)
--- NOTE | 2017-01-19 09:50 | TRS ---
TRANSFER SUMMARY: ADMISSION DATE: 01/17/17 DATE OF TRANSFER: 01/19/17 DESTINATION OF TRANSFER: [facility]. ACCEPTING PHYSICIAN: Dr. Campos - Cardiothoracic surgeon. PRIMARY CARE PROVIDER: Clarke Cohen MD. TRANSFERRING PROVIDER: DAX Xiao. SUPERVISING PHYSICIAN: Kaylee Patel DO.* (dictated by DAX Xiao) PRIMARY DIAGNOSIS: Non-ST elevation [place]. SECONDARY DISCHARGE DIAGNOSES: 1. Atrial fibrillation, chronically anticoagulated with Coumadin. 2. Coronary artery disease. 3. Wmg-xsfcafz-umaokpdln diabetes. 4. Moderate aortic stenosis. 5. Pancreatic neoplasm - likely benign, but requires followup. CURRENT MEDICATIONS: 1. Aspirin 81 mg p.o. daily. 2. Atenolol 50 mg p.o. twice daily. 3. Digoxin 0.125 mg p.o. daily. 4. Diltiazem 360 mg p.o. daily. 5. Hydrochlorothiazide 25 mg p.o. daily. 6. Humalog at mealtime per sliding scale. 7. Levothyroxine 137 mcg p.o. daily. 8. Morphine 2 mg IV q. 2 hours as needed for pain. 9. Nitroglycerin patch 0.2 mg per hour, apply daily. 10. Oxybutynin 2.5 mg p.o. b.i.d. 11. Potassium chloride tablet 40 mEq p.o. daily. 12. Ramipril 2.5 mg p.o. daily. HOSPITAL IMAGIN. Chest x-ray 01/17/17 shows mild pulmonary venous congestion, which appears to be chronic, no acute process. 2. 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 No associated pancreatic ductal dilatation with fatty liver and evidence of prior colostomy. 3. Transthoracic echocardiogram. Mild to moderate LVH appreciated. Normal left ventricular ejection fraction at 60% to 65% without focal wall motion abnormalities. Extensive calcium noted in the mitral and aortic annulus, some mild mitral regurge, mild mitral stenosis, mild to moderate tricuspid regurg, and moderate pulmonary hypertension, moderate aortic stenosis with aortic valve area calculated at 1.2 cm sq. 4. EKG shows an occasionally paced rhythm underlying is sinus with T-wave inversions and T3 and AVF and ST depressions in V4 and V6, which is difficult to determine the acuity, as she is mostly paced in prior EKGs. HOSPITAL COURSE: This is a 76-year-old female with known history of coronary disease, who underwent cardiac catheterization in October and December 2015, demonstrating some degree of left main disease, at that time she presented to the emergency department with complaints of chest pain. The patient has been having episodes of intermittent chest pain for the last 2 to 3 months that are generally self limited lasting several minutes. The patient had not notified her tailor fitter or primary care provider of these changes. She was going to her primary care provider's office for a blood draw for an INR check and had chest pain that had started earlier in the day and persisted throughout. She overall felt quite poorly and when she reached her primary care provider's office, she notified them of her chest pain and she was subsequently transferred to the emergency department for further evaluation. The patient states that her pain was substernal/epigastric in location and radiated to both of her jaws and down her right arm. When the patient reached the emergency department, her initial troponin was 0.13. EKG was mostly paced at that time. Chemistries were otherwise unremarkable. Lactic acid was elevated at 2.9. Lipase negative. The patient was subsequently admitted to the telemetry unit with serial troponins checked. The troponin climbed to 2.71. The patient had one additional episode of chest pain her first night of admission that resolved with sublingual nitroglycerin. Repeat EKG the following morning demonstrated ST depressions and T- wave inversions with some paced beats, it was difficult to determine the acuity of these changes as the majority of her beats have been paced in the past. Cardiology was consulted who recommended transfer for coronary artery bypass graft given the presence of her prior left main disease and last cardiac catheterization was within the last year. Dr. Wylie, tailor fitter did not feel that the patient would benefit from repeat cardiac catheterization. The patient remained mostly chest pain free, she did have couple of episodes that were self limited, lasting less than a couple of minutes. The patient reports an allergy to statins. It sounds like she has experienced myalgias with various statins at home. She has been prescribed low dose of Livalo. The patient is chronically anticoagulated with Coumadin. Her INR at that time of admission was 2.57. Her last dose of Coumadin was given on . INR was not checked again prior to transfer. Of note, the patient had a CT scan of her abdomen and pelvis due to the location initially of her pain. There was evidence of a cystic lesion within the body of the pancreas. These images were reviewed with radiologist, Dr. Tracy, who felt that this is most likely a benign process. Her last CT scan of the region was in 2008 and was a noncontrasted study, so it is difficult to make an appropriate comparison. Dr. Tracy recommended repeat CT with contrast or a contrasted MRI study in approximately 3 months to evaluate for stability of the lesion, but it does appear to be low risk for malignancy based on radiographic findings. DISPOSITION: The patient is being transferred to [facility] with cardiothoracic surgeon, Dr. Campos accepting her for planned coronary artery bypass grafting. The patient is stable for transfer at this time. She is currently free of chest pain. EKG is being repeated this morning prior to transfer. Recommend repeat CT imaging in 3 months as described above. The patient will require repeat INR when she reaches [facility] to determine readiness for operating room. She can be reversed if necessary. DAX XIAO CC: Clarke Cohen MD* [id number]/[facility] #: [id number] [facility]TDD
[2017-01-19 13:53] VITALS: BP 152/55
== END 2017-01-19 15:27 | disposition short-term general hospital (02) | DRG 281 ==
LOC: ED 12:01 → MEDTELE 13:19 → OBSVTOIN 01-18 08:02
PROVIDERS: ADMIT Internal Medicine; ATTEND Hospitalist
DX: I21.4 Non-ST elevation (NSTEMI) myocardial infarction (principal); I50.32 Chronic diastolic (congestive) heart failure; E87.2 Acidosis; I27.2 Other secondary pulmonary hypertension; I11.0 Hypertensive heart disease with heart failure; E83.42 Hypomagnesemia; Z95.810 Presence of automatic (implantable) cardiac defibrillator; E11.9 Type 2 diabetes mellitus without complications; Z82.49 Family history of ischemic heart disease and other diseases of the circulatory system; Z88.8 Allergy status to other drugs, medicaments and biological substances; E03.9 Hypothyroidism, unspecified; I25.10 Atherosclerotic heart disease of native coronary artery without angina pectoris; E78.00 Pure hypercholesterolemia, unspecified; M16.0 Bilateral primary osteoarthritis of hip; M17.0 Bilateral primary osteoarthritis of knee; M47.892 Other spondylosis, cervical region; Z98.42 Cataract extraction status, left eye; Z98.41 Cataract extraction status, right eye; E66.9 Obesity, unspecified; Z80.1 Family history of malignant neoplasm of trachea, bronchus and lung; Z87.891 Personal history of nicotine dependence; D72.829 Elevated white blood cell count, unspecified; Z66 Do not resuscitate; I48.0 Paroxysmal atrial fibrillation; D13.6 Benign neoplasm of pancreas; Z79.82 Long term (current) use of aspirin; Z79.4 Long term (current) use of insulin; I08.3 Combined rheumatic disorders of mitral, aortic and tricuspid valves; K76.0 Fatty (change of) liver, not elsewhere classified; Z68.34 Body mass index [BMI] 34.0-34.9, adult
CPT/HCPCS: 36415; 71010; 74177; 80048; 80053; 80061; 83605; 83690; 83735; 84484; 85025; 85379; 85610; 93005; 93306; A9270-GY; G0378; J2060; J2270; J3475; Q9967

== ENCOUNTER 2017-03-05 05:43 | Observation (INO) | payer MEDICARE, BC ==
[2017-03-05] MEDS ORDERED: Morphine INJ* 4 MG/ML 1 ML SYRINGE IV ONE (06:22)
--- NOTE | 2017-03-05 06:34 | ED ---
Shawn Martinez Billy, scribed for Bipin Hope MD on 03/05/17 at 0625 . HPI Chest Pain - HPI Summary HPI Summary: Patient is a 76 year-old female coming to [facility] after she was woken up with midsternal chest pain at 0300 today. She took 4x NTG at home and was given 1x NTG by ambulance with only momentary improvement to her symptoms; her chest pain persists at this time in the ED. She states it "feels like somebody is hitting her in the chest." This is the first episode of chest pain that she has had since her CABG with Dr. Campos at [facility] early last month. - History of Current Complaint Chief Complaint: EDChestPainROMI Time Seen by Provider: 03/05/17 06:19 Hx Obtained From: Patient Onset/Duration: Started Hours Ago, Still Present Time of Onset: 03:00 Timing: Constant Initial Severity: Moderate Current Severity: Moderate Pain Intensity: 8 Pain Scale Used: 0-10 Numeric Chest Pain Location: Mid Sternal Character: Other: - "feels like somebody is hitting her in the chest" Aggravating Factor(s): Nothing Alleviating Factor(s): Nothing Associated Signs and Symptoms: Positive: Chest Pain - Additional Pertinent History Primary Care Physician: [id number] - Allergy/Home Medications Allergies/Adverse Reactions: Allergies Allergy/AdvReac Type Severity Reaction Status Date / Time Acetaminophen Allergy Swelling Verified 02/10/16 17:26 Of Face,Lips,& Throat Niacin Allergy Itching Verified 02/10/16 17:26 Diazepam [From Valium] AdvReac Blurred Verified 01/18/17 01:53 Vision Diphenhydramine AdvReac Blurred Verified 01/18/17 01:53 [From Benadryl] Vision Simvastatin [From Vytorin] AdvReac Muscle Ache Verified 01/18/17 01:53 Statins AdvReac Muscle Ache Verified 01/18/17 01:53 Home Medications: Home Medications Cardizem 120 MG TAB 90 mg PO DAILY 03/05/17 [History Confirmed 03/05/17] Clopidogrel Bisulfate [Plavix] 75 mg PO DAILY 03/05/17 [History Confirmed ] Famotidine [Pepcid] 40 mg PO DAILY 03/05/17 [History Confirmed 03/05/17] Glipizide [Glucotrol] 2.5 mg PO DAILY 03/05/17 [History Confirmed 03/05/17] Hydrochlorothiazide [Microzide-] 25 mg PO DAILY 03/05/17 [History Confirmed ] Levothyroxine Sodium [Synthroid] 137 mcg PO QAM 03/05/17 [History Confirmed ] Metformin HCl [Glucophage] 850 mg PO TID 03/05/17 [History Confirmed 03/05/17] Metoprolol Tartrate [Lopressor] 50 mg PO BID 03/05/17 [History Confirmed ] Oxybutynin Chloride [Ditropan Xl] 2.5 mg PO BID 03/05/17 [History Confirmed ] Potassium Chloride [K-Tab] 20 meq PO DAILY 03/05/17 [History Confirmed 03/05/17] Ramipril [Altace] 2.5 mg PO DAILY 03/05/17 [History Confirmed 03/05/17] Warfarin Sodium [Coumadin] 2.5 mg PO SEE INSTRUCTIONS 03/05/17 [History Confirmed 03/05/17] PMH/Surg Hx/FS Hx/Imm Hx Endocrine/Hematology History: Reports: Hx Anticoagulant Therapy, Hx Diabetes - TYPE II- ON ORAL MEDICATION FOR, Hx Thyroid Disease - HYPOTHYROID Cardiovascular History: Reports: Hx Angina, Hx Auto Implanted Cardiovert Defib - pacer, Hx Coronary Artery Disease, Hx Hypercholesterolemia, Hx Hypertension - ON MEDICATION FOR, Hx Pacemaker/ICD - DR. RANGEL FOLLOWS, Hx Valvular Heart Disease, Other Cardiovascular Problems/Disorders - HX OF A-FIB;CAROTID STENOSIS Denies: Hx Myocardial Infarction Respiratory History: Denies: Hx Asthma, Hx Chronic Obstructive Pulmonary Disease (COPD) GI History: Reports: Hx Gastroesophageal Reflux Disease, Hx Ulcer - HX OF History: Denies: Hx Renal Disease Musculoskeletal History: Reports: Hx Arthritis - NECK, HANDS, KNEES Denies: Hx Osteoporosis Sensory History: Reports: Hx Cataracts, Hx Contacts or Glasses - GLASSES-READING Denies: Hx Hearing Aid Opthamlomology History: Reports: Hx Cataracts, Hx Contacts or Glasses - GLASSES- READING Psychiatric History: Reports: Hx Depression - Surgical History Surgery Procedure, Year, and Place: appe-1948, miscarriages wtih D&c. pacer- 2006 AND 2014. tonsils AND ADENOIDECTOMY-1947. carotid endarterectomy- BILATERAL. [place]. ADHESIONS-1979. BILATERAL CATARACTS-2006 Hx Anesthesia Reactions: No Infectious Disease History: No Infectious Disease History: Reports: History Other Infectious Disease - guillan barre - 2002 Denies: Hx Clostridium Difficile, Hx Hepatitis, Hx Human Immunodeficiency Virus (HIV), Hx of Known/Suspected MRSA, Hx Shingles, Hx Tuberculosis, Traveled Outside the [place] in Last 30 Days - Family History Known Family History: Positive: Cardiac Disease - CAD, [place] - Social History Alcohol Use: None Hx Substance Use: No Substance Use Type: Reports: None Hx Tobacco Use: Yes Smoking Status (MU): Former Smoker Amount Used/How Often: 3/4 PPD X 20 YEARS Have You Smoked in the Last Year: No Review of Systems Negative: Fever Positive: Chest Pain All Other Systems Reviewed And Are Negative: Yes Physical Exam Triage Information Reviewed: Yes Vital Signs On Initial Exam: Initial Vitals Temp Pulse Resp BP Pulse Ox 97.3 F 87 21 141/46 95 03/05/17 05:53 03/05/17 05:53 03/05/17 05:53 03/05/17 05:53 03/05/17 05:53 Vital Signs Reviewed: Yes Appearance: Positive: Well-Appearing, Pain Distress - mild discomfort Skin: Positive: Warm Head/Face: Positive: Normal Head/Face Inspection Eyes: Positive: MILTON ENT: Positive: Hearing grossly normal Neck: Positive: Supple Respiratory/Lung Sounds: Positive: Breath Sounds Present Cardiovascular: Positive: RRR Abdomen Description: Positive: Nontender, Soft Bowel Sounds: Positive: Present Musculoskeletal: Positive: Strength/ROM Intact Neurological: Positive: Sensory/Motor Intact, Alert, Oriented to Person Place, Time - Kelvin Coma Scale Coma Scale Total: 15 Diagnostics - Vital Signs Vital Signs Temp Pulse Resp BP Pulse Ox 03/05/17 06:11 91 03/05/17 05:53 97.3 F 87 21 141/46 95 - Laboratory Result Diagrams: 03/05/17 06:10 03/05/17 06:10 Lab Statement: Any lab studies that have been ordered have been reviewed, and results considered in the medical decision making process. - EKG 0551 EKG Interpretation: atrial fibrillation 117 bpm, RBBB Chest Pain Course/Dx - Diagnoses Provider Diagnoses: CAD (coronary artery disease) - Provider Notifications Instructed by Provider To: Admit As Inpatient Discharge - Discharge Plan Condition: Fair Disposition: ADMITTED TO [facility] Discharge Disposition Comment: Signed out to Dr. Cagle at shift change. The documentation as recorded by the Shawn esparza Billy accurately reflects the service I personally performed and the decisions made by me, Bipin Hope MD.
[2017-03-05 06:45] LABS: Hematocrit 40 % (35-47); Hemoglobin 12.8 g/dl (12.0-16.0); Mean Corpuscular HGB Conc 32 g/dl (31-36); Mean Corpuscular Hemoglobin 28 pg (27-31); Mean Corpuscular Volume 87 fL (80-97); Mean Platelet Volume 9 um3 (7.4-10.4); Red Blood Count 4.56 10^6/ul (4.0-5.4); Red Cell Distribution Width 15 % (10.5-15); White Blood Count 11.5 10^3/ul (3.5-10.8)
[2017-03-05 06:52] LABS: Albumin 3.3 g/dL (3.2-5.2); BUN/Creatinine Ratio 31.9 (8-20); Calcium 9.3 mg/dL (8.6-10.3); EGFR Non-African American 78.5 (>60); Globulin 3.4 g/dL (2-4); Magnesium 1.1 mg/dL (1.9-2.7); Potassium 3.9 mmol/L (3.5-5.0); Total Bilirubin 0.4 mg/dL (0.2-1.0); Total Protein 6.7 g/dL (6.4-8.9)
[2017-03-05 06:53] LABS: Troponin I 0.02 ng/mL (<0.04)
--- NOTE | 2017-03-05 07:36 | RAD ---
INDICATION: Chest pain. COMPARISON: Comparison is made with a prior chest x-ray study from January 17, 2017. TECHNIQUE: Dual-energy PA and lateral views of the chest were obtained. FINDINGS: The heart is within normal limits in size. There is a dual-chamber transvenous pacemaker present. The lungs are clear. No pleural effusion is present. IMPRESSION: NO EVIDENCE FOR ACTIVE CARDIOPULMONARY DISEASE.
[2017-03-05] MEDS: Nitroglycerin TAB 0.4 MG* 0.4 MG TAB SL ONE ×2 (07:50→07:57)
[2017-03-05] MEDS ORDERED: Nitroglycerin 2% OINT* 1 GM PAK TOPICAL ONE (08:30)
[2017-03-05] MEDS ORDERED: Iodixanol 320 (CONTRAST) 100 ML SDV IV ONE (09:07)
--- NOTE | 2017-03-05 09:34 | RAD ---
INDICATION: Chest pain status post coronary artery bypass surgery. COMPARISON: Comparison is made with a prior chest x-ray study of the same day. TECHNIQUE: A CT angiogram of the chest was performed with intravenous following intravenous injection of 77 ml of Visipaque 320 nonionic contrast. Contiguous axial sections were obtained from the lung apices through the lung bases. Images were reconstructed in the coronal and sagittal planes. FINDINGS: There is relatively homogeneous opacification of the pulmonary arteries. No intraluminal filling defect or pulmonary embolism is seen. The heart is mildly enlarged. No pericardial effusion is present. There is a transvenous pacemaker present. The thoracic aorta is normal in caliber. There is moderate calcific plaque present. There are mildly prominent pretracheal, aorticopulmonary window and subcarinal mediastinal lymph nodes measuring up to 1 cm in size. No enlarged hilar lymph nodes are seen. There is mild dependent bilateral lower lobe subsegmental atelectasis. No pleural effusion is seen. Images of the abdomen demonstrate postcholecystectomy changes. There is soft tissue swelling and increased density between the left anterior fourth and fifth ribs possibly representing postsurgical changes. Recommend clinical correlation. IMPRESSION: 1. NO EVIDENCE FOR PULMONARY EMBOLISM. 2. INCREASED DENSITY AND SWELLING BETWEEN THE LEFT ANTERIOR FOURTH AND FIFTH RIBS POSSIBLY REPRESENTING POSTSURGICAL CHANGES, RECOMMEND CLINICAL CORRELATION. 3. MILDLY ENLARGED MEDIASTINAL LYMPH NODES.
[2017-03-05] MEDS ORDERED: Morphine INJ* 2 MG/ML 1 ML SYRINGE IV PRN (09:40)
[2017-03-05] MEDS ORDERED: oxyCODONE TAB* 5 MG TAB PO PRN (09:41)
[2017-03-05] MEDS ORDERED: Dextrose 50% Syringe 50 ML* 25 GM/50 ML SYRINGE IV PUSH PRN (09:53)
[2017-03-05] MEDS: Clopidogrel TAB* 75 MG PO SCH (11:01)
[2017-03-05] MEDS: Aspirin EC Low Dose* 81 MG TAB.EC PO SCH (11:01)
[2017-03-05] MEDS: Oxybutynin TAB* 5 MG PO SCH (11:02)
[2017-03-05] MEDS: Insulin LISPRO* 1 UNITS UNIT SUBCUT SCH ×3 (11:43→21:36)
[2017-03-05] MEDS: Enoxaparin(*) 100 MG/ML SYR SUBCUT SCH (14:08)
[2017-03-05] MEDS: Diltiazem TAB* 30 MG PO SCH ×2 (14:08→23:19)
--- NOTE | 2017-03-05 15:29 | HP ---
HISTORY AND PHYSICAL: DATE OF ADMISSION: 03/05/17 PRIMARY CARE PROVIDERS: Dr. Croft and Dr. Cohen. CHIEF COMPLAINT: Chest pain. HISTORY OF PRESENT ILLNESS: Jana Saravia is 76-year-old female who underwent a coronary artery bypass grafting on 01/21/2017 at [facility]. She was discharged on 01/31/2017 and underwent 10 days of rehab. At the end of January, she was back home. Please also note the patient had a stent placed into her circumflex artery on 01/25/17 after her coronary artery bypass grafting. The coronary artery bypass grafting was robotic-assisted and the incisions are on the left side of the patient's chest underneath her left breast. Today, patient stated that she woke up and she felt severe pleuritic chest pain. She also stated that she has had occasional dry cough. When she coughs, it hurts more. She denies any shortness of breath. Her troponins are unremarkable. An EKG is unchanged from the one recorded on at [facility]. CT angiogram of the chest showed no PE. There was increased density between the left anterior fourth and fifth ribs, possibly representing postsurgical changes. There were also mildly enlarged mediastinal lymph nodes. Patient is going to be placed on overnight observation with the diagnosis of chest pain. PAST MEDICAL HISTORY: 1. Hypothyroidism. 2. Mucinous pancreatic neoplasm. 3. Diabetes type 2. 4. Hypertension. 5. Diastolic CHF. 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 7. Dyslipidemia. 8. Moderate aortic stenosis. 9. History of bradycardia, status post pacemaker placement. 10. Hyperlipidemia. 11. Obesity. 12. History of cholecystectomy. 13. History of appendectomy. 14. History of basal cell carcinoma of her nose, status post excision and reconstruction. 15. History of chronic atrial fibrillation. ALLERGIES: Include ACETAMINOPHEN, DIAZEPAM, BENADRYL, NIACIN, SIMVASTATIN. Overall, all STATINS the patient is intolerant of. FAMILY HISTORY: Positive for father with heart disease, mother with lung cancer. SOCIAL HISTORY: The patient quit smoking 15 years ago. Patient denies any alcohol or drug use. She has 2 daughters, Sarah and Caitlin, and both of them are healthcare proxies. She lives by herself. She is independent with her activities of daily living. OUTPATIENT MEDICATIONS: Include: 1. Aspirin 81 mg daily. 2. Plavix 75 mg daily. 3. Cardizem 90 mg every 8 hours. 4. Glipizide 2.5 mg daily. 5. Hydrochlorothiazide 25 mg daily. 6. Levothyroxine 137 mcg daily. 7. Metformin 850 mg 3 times a day. 8. Lopressor 50 mg b.i.d. 9. Ditropan 5 mg daily. 10. Potassium chloride 20 mEq daily. 11. Ramipril 5 mg daily. 12. Coumadin 5 mg daily. 13. Pepcid 40 mg daily. REVIEW OF SYSTEMS: Please see history of present illness. It appears that she has a tendency to minimize her symptoms. When I asked her if she has been coughing after her discharge from the hospital, she stated that she had not, but then when she started coughing, she stated that this cough had been present off and on ever since her discharge. She complains of dry cough. She never had pain like that she presented with today before. She stated that she ambulates with a roller walker, but her "knees are bad" and she fell 2 days ago. Apparently, she fell in the evening and she was on the floor until the morning the next day, unable to get up. We discussed the personal alert button and she is going to investigate it and have her family arrange it. She does have history of mild leg edema. All the remaining 14 systems were reviewed with the patient and otherwise negative. PHYSICAL EXAMINATION GENERAL: The patient is a very pleasant 76-year-old female who is in no acute distress. Awake and oriented x3. VITAL SINGS: Blood pressure 136/84, heart rate of 104, irregularly irregular, respiratory rate 26, oxygen saturation 94% on room air, temperature 98.8. HEENT: Head atraumatic, normocephalic. Eyes: Pupils equal and reactive to light and accommodation. Oropharynx is clear. Mucosa moist. NECK: Supple. No JVD. No bruits bilaterally. RESPIRATORY: Clear to auscultation bilaterally. CARDIOVASCULAR: Irregularly irregular rhythm with 2/6 systolic ejection murmur noted on auscultation of the right upper sternal border. ABDOMEN: Soft, nontender. Bowel sounds are present in all 4 quadrants. EXTREMITIES: There is trace bilateral pedal edema, pulses +2 bilaterally. There is no clubbing or cyanosis. NEUROLOGIC: On neuro evaluation, speech is clear. Cranial nerves II through XII grossly intact. Motor strength is 5/5 bilaterally. SKIN: On evaluation of the skin, the patient has 2 postoperative incisions that are approximately 2 cm in diameter. They are healed. There is no evidence of dehiscence. They are present on the left chest and underneath the left breast. LABORATORY DATA: Showed white blood cell count of 11.5, hemoglobin 12.8, hematocrit of 40, and platelets of 327. Sodium is 135, potassium 3.9, chloride 97, carbon dioxide 29, BUN 26, creatinine 0.72. Liver function tests are remarkable. Magnesium low at 1.1. Patient's troponin was 0.02. Second troponin was 0.01. CTA of the chest was reported as above. Patient's EKG showed right bundle branch block and left anterior hemiblock with atrial fibrillation. The changes were similar to the one on EKG from [facility] on 01/29/17. ASSESSMENT AND PLAN: 1. In regard to the patient's chest pain, the patient's 2 troponins were already negative. Nevertheless, the ED physician recommends for the patient to stay for overnight observation. The patient is going to be placed on overnight observation. I will follow up with another troponin. Her CT angiogram shows no PE, but possibility of postsurgical changes in the left ribs would correlate with the patient's localization of incisions. I suspect her pleuritic pain is really due to postoperative pain. 2. In regard to her coronary artery disease. Once again, her troponins have been negative. We will continue aspirin and Plavix as well as beta-wayne. 3. In regard to atrial fibrillation, currently it is rate controlled. I will continue the Cardizem as previously taken. I will also observe her on telemetry monitored bed. 4. In regards to patient's anticoagulation, she stated that she had been anticoagulated with Coumadin, but her INR today is 1.1. I reconfirmed the INR goal, but if she continues to have low INR, we will start her on Lovenox and continue Coumadin at 5 mg daily. 5. In regard to diabetes, patient's oral hyperglycemics are going to held and she is going to be placed on insulin sliding scale. 6. For DVT prophylaxis, the patient is going to be placed on most likely full dose of Lovenox once we clarify her INR level. 7. Code status. Patient's code status is full. 8. For her hypothyroidism, we will continue Synthroid at outpatient dose. TIME SPENT: Approximately 70 minutes was spent on admission of this patient, more than half that time was spent [id number] with the patient during the interview and physical exam. CC: Dr. Cohen; Dr. Croft; Dr. [place]; Dr. Campos and Dr. Robbins from [facility] in [place]. [id number]/[facility] #: [id number] MTDD
[2017-03-05] MEDS ORDERED: Warfarin TAB(*) 5 MG PO SCH (17:00)
[2017-03-05] MEDS ORDERED: Metoprolol Tartrate IV* 1 MG/ML 5 ML VIAL IV PRN (18:26)
[2017-03-05] MEDS ORDERED: Metoprolol Tartrate TAB* 50 mg PO ONE (18:26)
[2017-03-05] MEDS ORDERED: Metoprolol Tartrate TAB* 25 MG ONE (18:43)
[2017-03-05] MEDS ORDERED: Metoprolol Tartrate IV* 1 MG/ML 5 ML VIAL ONE (18:43)
[2017-03-05] MEDS: Docusate CAP* 100 MG PO SCH (21:47)
[2017-03-05] MEDS: Metoprolol Tartrate TAB* 50 mg PO SCH (21:47)
[2017-03-06] MEDS: Enoxaparin(*) 100 MG/ML SYR SUBCUT SCH (02:59)
[2017-03-06 04:51] LABS: Hematocrit 34 % (35-47); Hemoglobin 11.4 g/dl (12.0-16.0); Mean Corpuscular HGB Conc 33 g/dl (31-36); Mean Corpuscular Hemoglobin 28 pg (27-31); Mean Corpuscular Volume 86 fL (80-97); Mean Platelet Volume 9 um3 (7.4-10.4); Red Cell Distribution Width 15 % (10.5-15); White Blood Count 9.4 10^3/ul (3.5-10.8)
[2017-03-06 05:04] LABS: BUN/Creatinine Ratio 30.2 (8-20); Calcium 8.8 mg/dL (8.6-10.3); EGFR African American 143.9 (>60); EGFR Non-African American 111.9 (>60); Magnesium 1.4 mg/dL (1.9-2.7); Potassium 3.4 mmol/L (3.5-5.0)
[2017-03-06] MEDS ORDERED: Levothyroxine TAB* 137 MCG TAB PO SCH (06:00)
[2017-03-06] MEDS: Diltiazem TAB* 30 MG PO SCH (06:17)
[2017-03-06] MEDS: Insulin LISPRO* 1 UNITS UNIT SUBCUT SCH (07:42)
[2017-03-06] MEDS: Docusate CAP* 100 MG PO SCH (07:45)
[2017-03-06 07:46] VITALS: BP 153/51
[2017-03-06] MEDS: Clopidogrel TAB* 75 MG PO SCH (07:56)
[2017-03-06] MEDS: Aspirin EC Low Dose* 81 MG TAB.EC PO SCH (07:56)
[2017-03-06] MEDS: Oxybutynin TAB* 5 MG PO SCH (07:57)
[2017-03-06] MEDS: Metoprolol Tartrate TAB* 50 mg PO SCH ×2 (07:57→08:02)
[2017-03-06] MEDS ORDERED: Famotidine TAB* 20 MG PO SCH (09:00)
[2017-03-06] MEDS ORDERED: Magnesium Oxide TAB* 400 MG PO SCH ×2 (09:00→21:00)
[2017-03-06] MEDS ORDERED: Potassium Chlor TAB* 20 MEQ TAB.ER PO ONE (09:09)
--- NOTE | 2017-03-06 14:39 | ED ---
Joe Martinez SooYoung, scribed for Nilay Cagle MD on 03/05/17 at 0722 . Progress - Progress Note Progress Note: SO from Dr. Hope due to shift change, awaiting lab results, CXR results. 0735: Met with pt. Pt is a 76 y/o F who states her current CP is 5 out of 10. She notes having some improvement from the nitro given in the ambulance. Her PCP is Dr. [place]. 0835: Medical records from [facility] received and reviewed: Pt started Plavix and Coumadin at [facility]. Received CABG x1, SEQUEIRA to [facility]AD, developed CHF and required BYPAP and Lasix drip. CABG was on 01/21/2017, drug alluding STENT to circumflex artery on 01/25. Plan was to f/u Dr. Joe in 1-[address] Robbins in 2-3 weeks. - EKG/XRAY/CT XRAY: chest Xray Comments: IMPRESSION: No evidence for acute cardiopulmonary dz. - Consult/PCP Time Called: 07:47 Consult/PCP: Dr. Wylie, cardio Consult Reason/Comments: see COT Re-Evaluation - Re-Evaluation 1 Re-Evaluation Time: 09:45 Change: Improved - some Comment: Discussing plan of action with pt, to admit for observation. Pt voiced understanding. Course/Dx - Course Course Of Treatment: Trop at 0610: 0.02. CXR is negative. Pt given Nitro in ED. 0747: Spoke to Dr. Wylie, cardio: Discussed pt presentation, EKG findings ( slight ST depressions in 2, v5, v6) which may be post-operative. Most recent EKG comparisons were paced. Dr. Wylie recommended admission to [facility] [place] [place] for cardiac rule out. 0815: Spoke to Dr. Brewster, hospitalist. Again at 0845. - Diagnoses Provider Diagnoses: CAD (coronary artery disease), Chest pain - Provider Notifications Discussed Care Of Patient With: Dr. Brewster, hospitalist Time Discussed With Above Provider: 08:15 Instructed by Provider To: Other - Needs med-reconcillation, recommends CT of chest due to recent surgery, wants records from [facility] The documentation as recorded by the avelinoibJoe rosenberg SooYoung accurately reflects the service I personally performed and the decisions made by , Nilay Cagle MD.
--- NOTE | 2017-03-06 22:00 | DS ---
DISCHARGE SUMMARY: DATE OF ADMISSION: 03/05/17 DATE OF DISCHARGE: 03/06/17 PRIMARY CARE PHYSICIANS: Dr. Croft and Dr. Cohen. DISCHARGE DIAGNOSES: 1. Chest pain, most likely postoperative exacerbated by a fall 2 days prior. 2. Hypomagnesemia. 3. Subtherapeutic INR. SECONDARY DIAGNOSIS: 1. Status post coronary artery bypass grafting on 01/21/17 at [facility] that was robotic assisted. 2. Status post stent placement into the circumflex artery on 01/25/17. 3. Hypothyroidism. 4. Mucinous pancreatic neoplasm. 5. Diabetes type 2. 6. Hypertension. 7. Diastolic congestive heart failure. 8. History of Guillain-[place] syndrome. 9. Dyslipidemia. 10. Moderate aortic stenosis. 11. History of bradycardia, status post pacemaker placement. 12. Hyperlipidemia. 13. Obesity. 14. Cholecystectomy. 15. Appendectomy. 16. History of basal cell carcinoma on her nose, status post excision and reconstruction. 17. History of chronic atrial fibrillation. MEDICATIONS AT DISCHARGE: Unchanged from admission apart from titration of dose of the patient's Coumadin and those include: 1. Aspirin 81 mg daily. 2. Plavix 75 mg daily. 3. Cardizem 90 mg every 8 hours. 4. Glipizide 2.5 mg daily. 5. Hydrochlorothiazide 25 mg daily. 6. Levothyroxine 137 mcg daily. 7. Metformin 850 mg 3 times a day. 8. Lopressor 50 mg b.i.d. 9. Ditropan 5 mg daily. 10. Potassium chloride 20 mEq daily. 11. Ramipril 5 mg daily. 12. Coumadin 5 mg daily every day. Before the patient was taking intermittently 2.5 mg. 13. Pepcid 40 mg daily. 14. Mag oxide 800 mg b.i.d. for a total of 7 days. LABORATORY DATA AND STUDIES: Performed during the hospital stay include: On 03/06/17: Sodium of 133, potassium 3.4, chloride 97, carbon dioxide 28, BUN 16, creatinine 0.53, and magnesium level is 1.4 at discharge. White blood cell count of 9.4, hemoglobin 11.4, hematocrit 34, and platelets of 274. INR at discharge was 1.35. At admission was 1.1. CT angiogram of the chest obtained on 03/05/17, impression: "No evidence of pulmonary embolism. Increased density and swelling between the left anterior fourth and fifth ribs, possibly representing postsurgical changes. Recommend clinical correlation. Mildly enlarged mediastinal lymph nodes." The patient's troponins had been 0.01 and 0.02 throughout the patient's hospital stay. HOSPITALIZATION COURSE: Jana Saravia is a 76-year-old female who presented to the hospital on 03/05/17 complaining of chest pain. The chest pain was localized in the left lower chest and was pleuritic. Apparently a couple of days prior, the patient fell and spent most of the night on the floor of her bedroom. She did not loss consciousness. She stated that she fell. During the patient's hospital stay, the patient was ambulatory and had no problems with it. CT of the chest showed no PE, but abnormalities on the left fourth and fifth ribs, most likely due to postsurgical changes. Please note that the patient had robotic heart surgery from the left chest approach. The patient was observed in telemetry monitored bed. She was in intermittent paced rhythm and intermittently in AFib. Her troponins continued to be negative during her hospital stay. At the time of discharge, she feels much better. Incidentally shows, she was noted to have a very low magnesium level of 1.1 on admission. She was aggressively replaced with intravenous magnesium and she is going to recommended to be on 1-week of magnesium supply at discharge. In regards the patient's Coumadin treatment, the patient did not recall what was her Coumadin regimen at admission. She remembered that she would take intermittently 2.5 mg and 5 mg. Her INR on presentation was 1.1. Her Coumadin was continued at 5 mg on a daily basis and her INR at discharge is 1.35. The patient was recommended Lovenox, but she was not interested in it, stated that she wishes not to use it because it causes bruising on her abdomen. She is going to be discharged with recommendation to follow up with a repeat INR on Tuesday, which is 03/09/17. The patient stated that she is going to have it obtained at the patient's primary care provider's office. PHYSICAL EXAMINATION: Physical exam at discharge is unchanged from admission. DISCHARGE INSTRUCTIONS: At discharge, the patient was recommended to follow up with her primary care provider in 4 to 7 days and her cardiothoracic surgeon as previously scheduled. CC: Dr. Croft; Dr. Cohen; Dr. H[place]go; Dr. Campos; and Dr. Robbins from [facility] in [place] * [id number]/[facility] #: [id number] MTDD
== END 2017-03-06 12:50 | disposition home or self-care (01) ==
LOC: ED 05:43 → MEDTELE 08:47
PROVIDERS: ADMIT Internal Medicine; ATTEND Internal Medicine
DX: R07.9 Chest pain, unspecified (principal); E83.42 Hypomagnesemia; Z95.1 Presence of aortocoronary bypass graft; Z95.5 Presence of coronary angioplasty implant and graft; I25.10 Atherosclerotic heart disease of native coronary artery without angina pectoris; E03.9 Hypothyroidism, unspecified; D49.0 Neoplasm of unspecified behavior of digestive system; E11.9 Type 2 diabetes mellitus without complications; I11.0 Hypertensive heart disease with heart failure; Z79.84 Long term (current) use of oral hypoglycemic drugs; I50.30 Unspecified diastolic (congestive) heart failure; E78.5 Hyperlipidemia, unspecified; I35.0 Nonrheumatic aortic (valve) stenosis; Z79.01 Long term (current) use of anticoagulants; I48.91 Unspecified atrial fibrillation; Z87.891 Personal history of nicotine dependence; Z95.810 Presence of automatic (implantable) cardiac defibrillator
CPT/HCPCS: 36415; 71020; 71275; 80048; 80053; 83605; 83735; 84484; 85025; 85610; 93005; 96365; 96366; 96372; 99284; A9270-GY; G0378; J1650; J2270; J3475; Q9967

== ENCOUNTER 2018-03-17 16:50 | Emergency (ER) | payer MEDICARE, BC, OTHER ==
--- OUTSIDE RECORDS SUMMARY | 2018-03-17 18:15 | XMS REPORT ---
:1940 External Reference #:[id number] Author Organization [facility] Address [address] [address] Phone [phone] Care Team Providers Name Role Phone Clarke Cohen MD Primary Care Physician Unavailable Payers Type Date Identification Numbers Payment Provider Subscriber Medicare Primary Effective: Policy Number: Medicare Magan Ashley 1995 [id number] PayID: [id number] [address] [place] [address] Medigap Part B Policy Number: [id number] [facility] Magan Ashley PayID: [id number] [address] [place] [address] Problems Date Description Provider Status Onset: 02/10/2012 Atrial fibrillation Danny Hidalgo M.D. Active Onset: 02/10/2012 Sinus node dysfunction Danny Hidalgo M.D. Active Onset: 02/10/2012 Mitral valve disorder Danny Hidalgo M.D. Active Onset: 02/10/2012 Pure hypercholesterolemia Danny Hidalgo M.D. Active Onset: 06/10/2014 Aortic valve disorder Danny Hidalgo M.D. Active Onset: 06/10/2014 Essential hypertension Danny Hidalgo M.D. Active Onset: 08/22/2015 Chronic atrial fibrillation Danny Hidalgo M.D. Active Social History Type Date Description Comments Marital Status Lives With Alone Occupation Retired [employer] Cigarette Use Quit 12 Years Ago ETOH Use Denies alcohol use Smoking Patient is a former smoker Recreational Drug Use Denies Drug Use Daily Caffeine Consumes on average 2 cups of decaff coffee per day Exercise Type/Frequency Exercises rarely Allergies, Adverse Reactions, Alerts Date Description Reaction Status Severity Comments 03/27/2007 Statins active 07/21/2010 Vytorin active myalgias 05/28/2011 Acetaminophen Throat swelling active generic. Okay to take Brand name Tylenol 06/07/2013 Niacin flushing active 12/23/2015 Valium active blurred vision 12/23/2015 Benadryl active blurred vision 03/05/2004 NKDA inactive Medications Medication Date Status Form Strength Qnty SIG Indications Ordering Provider Diovan 01/26 Active Tablets 40mg 60tab 1 by mouth I10 Shanna S. s every day Blake N.P. Praluent 11/07 Active Solution 150mg/ml 2ml 1 injection Pen-Injec sc every 2 F. t weeks pt ethel Hidalgo only Yasmin recived 75mg intead of 150mg Spironolactone 07/22 Active Tablets 25mg 30tab 1 by mouth I10 Shanna S. s every day Blake N.PDuke Demadex 07/13 Active Tablets 10mg 30tab 1 tablet s twice /week F. prshavon Hidalgo M.D. Diltiazem CD 07/13 Active Caps ER 180mg 180ca 2 by mouth 24HR ps every day Tamiko Hidalgo M.D. Sertraline HCL 07/12 Active Tablets 25mg 2 by mouth every day Jobst Opaque 03/06 Active Misc as Above 3unit apply daily I10 Danny 20-30MMHG/Knee /2014 s as directed F. High/Closed Celia Hidalgo/Sonia Hoffman Nitrostat 09/11 Active Tablets 0.4mg 25tab one sl Sub s q5min up to F. 3 doses prn Yasmin Hidalgo Metformin HCL 01/24 Active Tablets 850mg 60tab 1 PO tid s FDuke Hidalgo M.D. Coumadin 02/23 Active Tablets 2.5mg 30tab Use as Danny s Directed Tamiko Hidalgo M.D. Oxybutynin Active Tablets 5mg 90tab 1/2 po bid Unknown Chloride s Vitamin B-12 Active Tablets 500mcg 3 tabs by Unknown /0000 mouth daily Fish Oil Active Capsules 1000mg 1 cap po Unknown / bid Levothyroxine Active Tablets 125mcg 1 by mouth Unknown Sodium /0000 alternating day's with 137 mcg Levothyroxine Active Tablets 137mcg 1 by mouth Unknown Sodium /0000 alternating days with 125 mcg's Plavix Active Tablets 75mg 1 by mouth Unknown every day Glipizide Active Tablets 5mg 1 by mouth Unknown daily Famotidine Active Tablets 40mg 1 by mouth Unknown every day Vitamin D Active Tablets 1000Unit once a day Unknown (Cholecalciferol) Metoprolol Active Tablets 50mg 1 by mouth Unknown Succinate ER / ER 24HR twice a day Praluent 08/24 Hx Solution 75mg/ml 4ml 1 injection Pen-Injec sc every 2 F. - t weeks Gwen, 11/07 M.DDuke Pantoprazole 06/10 Hx Tablets 40mg 30tab [address] mijares daily in F. - the morning Gwen, 07/21 M.DDuke Livalo 09/30 Hx Tablets 1mg 45tab 1 tab by E78.0 Danny s mouth every F. - other day Gwen, 05/31 M.D. Protonix 08/22 Hx Tablets 40mg 30tab [address] mijares every day F. - Gwen, 08/09 M.DDuke Pravachol 03/06 Hx Tablets 10mg 90tab 1 by mouth E78.0 Danny s every day F. - Gwen, 09/30 M.D. Demadex 03/06 Hx Tablets 10mg 30tab 1 by mouth 782.3 Danny s three times F. - a week as Gwen, 07/12 needed M.DDuke Ramipril 06/10 Hx Capsules 2.5mg 200ca 1 po qd ps F. - Katieodalysr, 03/20 M.D. Pravachol 06/08 Hx Tablets 10mg 90tab 1 by mouth s every day F. - Oruser, 03/05 M.D. Meclizine HCL 04/05 Hx Tablets 12.5mg 12tab tid prn s Ordering - Provider 08/08 Niaspan 01/15 Hx Tablets 500mg 30tab 1tab pm ER s . Carlita Hidalgo, 06/07 M.D. Zetia 09/04 Hx Tablets 10mg 90tab 1 po qd s . Carlita Hidalgo, 08/27 M.D. Crestor 05/10 Hx Tablets 5mg 90tab 1 po qd s . Carlita Hidalgo, 08/31 M.D. Lipitor 09/30 Hx Tablets 10mg 90tab 1 po qhs s . - Gwen, 05/10 M.D. Zocor 08/04 Hx Tablets 5mg 30tab 1 po hs s Duke Hidalgo, 09/30 M.D. Co Q-10 Maximum 07/31 Hx Capsules 400mg 30cap s . Carlita Hidalgo, 02/09 M.D. Vit D 04/24 Hx 400U 2 tablet po daily F. - dinner time Gwen, 05/31 M.D. Calcium-Vitamin D 04/24 Hx Tablets 1200 1 po qd F. Carlita Hidalgo, 04/05 M.D. Actos 04/24 Hx Tablets 15mg 30tab 1 po qd s . Carlita Hidalgo, 05/28 M.D. Synthroid 04/24 Hx Tablets 125mcg 90tab 1 po qd s . Carlita Hidalgo, 03/05 M.D. Vytorin 04/24 Hx Tablets 10-80mg 90tab 1/2 po qhs s F. - Mauser, 07/21 M.D. Diltiazem CD 01/24 Hx Caps ER 180mg 180ca 2 tabs po 24HR ps daily . - Mauser, 05/31 M.D. Fish Oil 01/24 Hx Capsules 1200 1 PO bid F. - Haleyr, 05/28 M.D. Glipizide ER 01/24 Hx Tablets 5mg 1 PO qam ER 24HR F. - Maodalysr, 08/28 M.D. Cardizem CD 07/26 Hx Caps ER 360mg 100ca 1 po qd 24HR ps . - Mauser, 01/24 M.D. Vytorin 07/03 Hx Tablets 10-80mg 90tab 1 PO qd s . - Katieuser, 04/24 M.D. Cardizem CD 06/28 Hx Caps ER 120mg 3 PO qd 24HR . - Mauser, 07/26 M.D. Cardizem CD 06/22 Hx Caps ER 240mg 1 PO qd 24HR . - Haleyr, 06/22 M.D. KCL 06/22 Hx 20Meq 1 tab po qd . Mauser, 08/15 M.D. Trazodone HCL 06/22 Hx Tablets 100mg 1 PO qd . - Mauser, 07/21 M.D. Vytorin 06/22 Hx Tablets 10-40mg 90tab 1 PO qd s F. - Mauser, 07/03 M.D. Fish Oil 06/22 Hx Capsules 1000mg 1 PO qd . - Mauser, 01/24 M.D. Calcium,MG,Zinc 06/22 Hx qd . - Mauser, 07/21 M.D. Co Q10 06/22 Hx qd . - Mauser, 07/21 M.D. Cardizem 06/22 Hx Tablets 120mg 270ta 3 po qd Tamiko Hidalgo, 06/28 M.D. Crestor 05/24 Hx Tablets 20mg 90tab 1 po qd s Duke Hidalgo, 05/30 M.D. Zetia 05/24 Hx Tablets 10mg 90tab 1 PO qd Tamiko Hidalgo, 06/22 M.D. Cardizem CD 04/21 Hx Caps ER 120mg 90cap 1 po qd 24HR s Tamiko Hidalgo, 06/22 M.D. Cardizem 03/22 Hx Tablets 30mg 60tab 1 PO bid Tamiko Hidalgo, 04/21 M.D. Melatonen 03/22 Hx 5mg one qd Tamiko Hidalgo, 06/22 M.D Vytorin 02/28 Hx Tablets 10-80mg 90tab 1 tablet po s Tamiko Hidalgo, 05/24 M.D. Omeprazole 12/21 Hx Capsules 20mg [address] Tamiko Hidalgo, 06/22.D. Metformin HCL 12/21 Hx Tablets 1000mg 1 po bid Duke Hidalgo, 01/24 M.D. Nitro-Dur 12/21 Hx Patches 0.2mg/HR 90uni 1 patch qd 24HR ts on in the . - , off in , 06/10 the pm M.D. /2016 Vytorin 10/05 Hx Tablets 10mg;40 90tab 1 po qd mg s Duke Hidalgo, 02/28 M.D. Tricor 10/05 Hx Tablets 145mg 90tab 1 po qd s Tamiko Hidalgo, 02/09 M.D. /2011 Fiber 06/07 Hx three in Am Tamiko Hidalgo, 04/05 M.D. /2012 Metformin 03/24 Hx Tablets 500mg 60tab 1 PO bid s F. - Mauser, 12/21 M.D. /2006 Vytorin 01/28 Hx Tablets 10mg;80 1 po qd mg F. - Mauser, 10/05 M.D. Nitrodisc 09/22 Hx Patches 0.2mg/Marin 90uni On In Am r ts Off In PM . - Mauser, 12/21 M.D. /2006 Vytorin 09/21 Hx Tablets 10mg;40 30tab 1 po qd mg s F. - Mauser, 01/28 M.D. /2005 Altace 07/16 Hx Capsules 2.5mg 30cap 1 PO qd s F. - Mauser, 07/21 M.D. /2009 Digoxin 07/16 Hx Tablets 0.125mg 30tab 1/2 po qd s F. - Mauser, 05/31 M.D. /2016 Digoxin 07/09 Hx Tablets 250mcg 30tab 1/2 po qd s F. - Mauser, 07/16 M.D. Tenormin 07/09 Hx Tablets 50mg 135ta 1/2 po qam bs and 1 qpm . user, 06/01 M.D. /2016 Synthroid 07/08 Hx Tablets 137mcg 1 po qd F. - Mauser, 04/24 M.D. /2008 Digoxin 07/02 Hx Tablets 250mcg 45tab 1 and 10/25 s tabs po qd . - Mauser, 07/09 M.D. Digoxin 06/25 Hx Tablets 250mcg 90tab 1 po qd s F. - Mauser, 07/02 M.D. Tenormin 06/17 Hx Tablets 50mg 180ta 2 po qd bs F. - Mauser, 07/09 M.D. /2004 kcl 06/17 Hx Tablets 20Meq 90tab 1 po qd s F. - Mauser, 06/22 2 qd M.D. /2006 For 8/25 And 06/18 And Then One PO qd. Nitrostat 06/17 Hx Tablets 0.4mg 25tab One SL s Q5min Up To F. - 3 Doses prn Katieuser, 05/28 M.D. /2010 Plavix 06/16 Hx Tablets 75mg 30tab 1 po qd s F. - Mauser, 06/17 M.D. /2004 Aspirin 04/19 Hx Chewtabs 81mg 30uni 1 PO qd ts F. - Mauser, 02/09 M.D. /2011 Cardizem 04/08 Hx Tablets 120mg 1 po qd. F. - Mauser, 07/02 M.D. Zetia 04/08 Hx Tablets 10mg 90tab 1 po qd s F. - Mauser, 09/22 M.D. Cardizem 04/07 Hx Tablets 160 1 po qd. F. - Mauser, 04/08 M.D. Lasix 04/07 Hx Tablets 20mg 30tab 1 PO qd s F. - Mauser, 06/22 M.D. Lexapro 04/07 Hx Tablets 10mg 30tab 1 po qd s F. - Mauser, 12/21 M.D. /2006 Tenormin 04/08 Hx Tablets 50mg 30tab 1 po qd s F. - Mauser, 06/17 M.D. Dyazide 04/08 Hx Capsules 25mg;37.5 1 po qd mg F. - Mauser, 06/03 M.D. /2004 Diovan 03/31 Hx Tablets 80mg 90tab 1 po qd s F. - Mauser, 06/03 M.D. Vitamin 03/25 Hx one qd F. - Mauser, 06/22 M.D. Cardizem CD 02/25 Hx Capsules 180mg 1 po qd F. - Mauser, 04/08 M.D. Tenormin 02/23 Hx Tablets 50mg 30tab 1 po bid s [facility], 04/08 M.[facility]. Dyazide 02/23 Hx Capsules 25mg;37.5 30cap 2 po qd mg s . [facility], 04/08 M.D. Synthroid 02/23 Hx Tablets 150mcg 30tab 1 po qd s [facility], 07/16 M.D. /2004 KCL 02/23 Hx Capsules 20Meq 1 po qam . [facility], 06/17 M.D. Cardizem CD 02/23 Hx Capsules 120mg 30cap 1 po qd s . [facility], 02/25 M.D. Altace 02/23 Hx Capsules 5mg 30cap 1 po qd s [facility], 03/05 M.D. Lipitor 02/23 Hx Tablets 80mg 90tab 1 po qd s [facility], 09/22 M.D. Lasix Hx Tablets 40mg 1 PO qd prn Unknown 0000 wt gain of - 3 lbs or 01/08 more increased am edema. Glipizide ER Hx Tablets 5mg 2 po qd Unknown /0000 ER 24HR - 04/24 Pepcid ac Hx Tablets 10mg 1 PO prn Unknown /0000 - 07/21 Co Enzyme Q-10 Hx Capsules 400mg 1 po qd Unknown /0000 - 02/09 Ramipril Hx Capsules 2.5mg 90cap 1 po qd Danny / s [facility], 06/10 M.D. /2013 Prilosec Hx Capsules 20mg 60cap 1 po qd Unknown /0000 s - 09/11 Garlic Hx Capsules 500mg 1 po qam Unknown /0000 - 04/05 Lasix Hx Tablets 80mg 1 by mouth Unknown /0000 every day - 01/08 Minocycline HCL Hx Capsules 100mg 28cap 1 by mouth Unknown /0000 s twice a day - 03/05 Cephalexin Hx Capsules 500mg take 1 Unknown /0000 capsule - three times 07/08 a day for days Levothyroxine Hx Tablets 137mcg 1 by mouth Unknown Sodium /0000 every day - 06/01 Ranitidine HCL Hx Tablets 150mg take one Unknown /0000 tablet by - mouth twice 08/26 a /2014 Hydrochlorothiazid Hx Tablets 25mg 1 by mouth Unknown e /0000 every day - (Hold as of 08/1407/22/17) Ramipril Hx Capsules 2.5mg 90cap 1 tab by Danny /0000 s mouth daily Tamiko Hidalgo, 06/01 MOmid Lovenox Hx as directed Unknown /0000 - 01/03 Hydrocodone-Acetam Hx Tablets 5-325mg 1 by mouth Unknown inophen /0000 every - 4hours prn. 05/31 Diltiazem HCL Hx Tablets 90mg 1 by mouth Unknown /0000 three times - daily 07/13 Metoprolol Hx Tablets 50mg 1 by mouth Unknown Tartrate /0000 twice a day - 07/22 Ramipril Hx Capsules 2.5mg 1 by mouth Unknown /0000 every day - 01/26 Medications Administered in Office Medication Date Status Form Strength Qnty SIG Indications Ordering Provider Inj, Administered Injection Ab Pinon Regadenoson, 017 DO Ozzy 0.1 MG FACC Technetium TC Administered Injection Ab SDuke 99M 017 DO Ozzy Tetrofosmin, FACC Per Unit Dose Up To 40 Millicuries Vital Signs Date Vital Result Comment 03/02/2018 Height 64 inches 5'4" Weight 214.50 lb w/shoes Heart Rate 70 /min BP Systolic Sitting 130 mmHg L/A LG Cuff BP Diastolic Sitting 60 mmHg L/A LG Cuff BMI (Body Mass Index) 36.8 kg/m2 Ejection Fraction 60-65% echo 06/08/2017 01/26/2018 Height 64 inches 5'4" Weight 215.00 lb with shoes Heart Rate 70 /min BP Systolic Sitting 156 mmHg Lue lg cuff BP Diastolic Sitting 60 mmHg Lue lg cuff BP Systolic Standing 150 mmHg Lue lg cuff BP Diastolic Standing 70 mmHg Lue lg cuff Respiratory Rate 18 /min BMI (Body Mass Index) 36.9 kg/m2 Ejection Fraction 60-65% date 06/08/17 ECHO 12/20/2017 Height 64 inches 5'4" Weight 206.00 lb w/ shoes Heart Rate 66 /min reg BP Systolic Sitting 122 mmHg Lue BP Diastolic Sitting 76 mmHg Lue Respiratory Rate 16 /min BMI (Body Mass Index) 35.4 kg/m2 Ejection Fraction 60-65% As of 06/08/17 echo 08/15/2017 Height 64 inches 5'4" Weight 202.75 lb with shoes Heart Rate 80 /min BP Systolic Sitting 144 mmHg Ra lrg cuff BP Diastolic Sitting 82 mmHg Ra lrg cuff BMI (Body Mass Index) 34.8 kg/m2 Ejection Fraction 60%-65% echo 06/08/17 07/22/2017 Height 64 inches 5'4" Weight 202.00 lb with shoes Heart Rate 62 /min BP Systolic Sitting 148 mmHg Lue large cuff BP Diastolic Sitting 62 mmHg Lue large cuff BP Systolic Standing 115 mmHg Rue large cuff BP Diastolic Standing 62 mmHg Rue large cuff Respiratory Rate 16 /min BMI (Body Mass Index) 34.7 kg/m2 07/13/2017 Height 64 inches 5'4" Weight 206.00 lb with shoes Heart Rate 78 /min BP Systolic Sitting 142 mmHg Ra lrg cuff BP Diastolic Sitting 82 mmHg Ra lrg cuff BMI (Body Mass Index) 35.4 kg/m2 Ejection Fraction 60%-65% echo 06/08/17 06/01/2017 Height 64 inches 5'4" Weight 202.00 lb with shoes Heart Rate 72 /min BP Systolic Sitting 154 mmHg Ra reg cuff BP Diastolic Sitting 68 mmHg Ra reg cuff BMI (Body Mass Index) 34.7 kg/m2 Ejection Fraction 60% - 65% echo 01/18/17 03/02/2017 Height 64 inches 5'4" Heart Rate 80 /min BP Systolic Sitting 148 mmHg LA lrg cuff BP Diastolic Sitting 66 mmHg LA lrg cuff Ejection Fraction 60% - 65% echo 01/18/17 08/09/2016 Height 64 inches 5'4" Weight 203.00 lb w/shoes Heart Rate 74 /min BP Systolic Sitting 164 mmHg LA lg cuff BP Diastolic Sitting 64 mmHg LA lg cuff BMI (Body Mass Index) 34.8 kg/m2 Ejection Fraction > 70 Echo 09/12/15 07/14/2016 Height 64 inches 5'4" Weight 203.00 lb w/shoes Heart Rate 78 /min BP Systolic Sitting 160 mmHg LA, large BP Diastolic Sitting 82 mmHg LA, large BMI (Body Mass Index) 34.8 kg/m2 Ejection Fraction > 70 Echo 09/12/15 02/25/2016 Height 64 inches 5'4" Weight 206.25 lb with shoes Heart Rate 78 /min BP Systolic 136 mmHg BP Diastolic 70 mmHg BMI (Body Mass Index) 35.4 kg/m2 Ejection Fraction >70% echo 09/12/15 01/05/2016 Height 64 inches 5'4" Weight 209.00 lb with shoes Heart Rate 74 /min 74 BP Systolic Sitting 136 mmHg right arm, large cuff BP Diastolic Sitting 64 mmHg right arm, large cuff BP Systolic Standing 140 mmHg right arm, large cuff BP Diastolic Standing 64 mmHg right arm, large cuff Respiratory Rate 24 /min BMI (Body Mass Index) 35.9 kg/m2 Ejection Fraction >70% 09/12/15 12/23/2015 Height 64 inches 5'4" Weight 209.00 lb with shoes Heart Rate 76 /min 76 BP Systolic Sitting 136 mmHg left arm, large cuff BP Diastolic Sitting 64 mmHg left arm, large cuff BP Systolic Standing 134 mmHg left arm, large cuff BP Diastolic Standing 64 mmHg left arm, large cuff Respiratory Rate 16 /min BMI (Body Mass Index) 35.9 kg/m2 Ejection Fraction >70% 09/12/15 12/01/2015 Height 64 inches 5'4" Weight 204.00 lb w/shoes Heart Rate 72 /min BP Systolic Sitting 144 mmHg LA lg cuff BP Diastolic Sitting 68 mmHg LA lg cuff BMI (Body Mass Index) 35.0 kg/m2 Ejection Fraction > 70 echo 09/12/15 11/12/2015 Height 64 inches 5'4" Weight 209.00 lb Heart Rate 70 /min 70 BP Systolic Sitting 148 mmHg right arm, large cuff BP Diastolic Sitting 70 mmHg right arm, large cuff BP Systolic Standing 142 mmHg right arm, large cuff BP Diastolic Standing 68 mmHg right arm, large cuff Respiratory Rate 20 /min BMI (Body Mass Index) 35.9 kg/m2 Ejection Fraction >70% 09/12/15 09/30/2015 Height 64 inches 5'4" Weight 211.25 lb w/shoes Heart Rate 76 /min BP Systolic Sitting 144 mmHg LA lg cuff BP Diastolic Sitting 68 mmHg LA lg cuff BMI (Body Mass Index) 36.3 kg/m2 Ejection Fraction > 70 echo 09/12/15 09/12/2015 Height 64 inches 5'4" Heart Rate 72 /min BP Systolic 144 mmHg LA, large BP Diastolic 74 mmHg LA, large BP Systolic Sitting 174 mmHg LA, large BP Diastolic Sitting 74 mmHg LA, large 08/27/2015 Height 64 inches 5'4" Weight 210.62 lb with shoes Heart Rate 70 /min BP Systolic Sitting 140 mmHg LA lg cuff BP Diastolic Sitting 70 mmHg LA lg cuff Respiratory Rate 16 /min BMI (Body Mass Index) 36.1 kg/m2 Ejection Fraction 60-65% date 04/11/15 Cory 07/03/2015 Height 64 inches 5'4" Weight 208.75 lb w/ shoes Heart Rate 72 /min BP Systolic Sitting 142 mmHg LA, large cuff BP Diastolic Sitting 60 mmHg LA, large cuff BMI (Body Mass Index) 35.8 kg/m2 Ejection Fraction 60-65% 04/11/15 Cory 04/16/2015 Height 64 inches 5'4" Weight 209.75 lb Heart Rate 60 /min BP Systolic Sitting 154 mmHg Ra, reg BP Diastolic Sitting 68 mmHg Ra, reg BMI (Body Mass Index) 36.0 kg/m2 Ejection Fraction 60%-65% 04/11/15 03/06/2015 Height 64 inches 5'4" Weight 214.00 lb Heart Rate 80 /min BP Systolic Sitting 132 mmHg left arm, large cuff BP Diastolic Sitting 70 mmHg left arm, large cuff BMI (Body Mass Index) 36.7 kg/m2 Ejection Fraction 65-70% 06/07/13 07/09/2014 Height 64 inches 5'4" Weight 213.00 lb with shoes Heart Rate 64 /min BP Systolic Sitting 136 mmHg Ra lg cuff BP Diastolic Sitting 60 mmHg Ra lg cuff Respiratory Rate 16 /min BMI (Body Mass Index) 36.6 kg/m2 07/04/2014 Height 64 inches 5'4" Weight 209.00 lb with shoes Heart Rate 72 /min BP Systolic Sitting 134 mmHg LA, Lg cuff BP Diastolic Sitting 68 mmHg LA, Lg cuff BP Systolic Standing 130 mmHg LA BP Diastolic Standing 66 mmHg LA Respiratory Rate 16 /min BMI (Body Mass Index) 35.9 kg/m2 06/12/2014 Height 64 inches 5'4" Weight 208.00 lb without shoes Heart Rate 60 /min BP Systolic Sitting 134 mmHg L arm , Large cuff BP Diastolic Sitting 70 mmHg L arm , Large cuff BP Systolic Standing 110 mmHg c/o dizziness BP Diastolic Standing 70 mmHg c/o dizziness Respiratory Rate 18 /min BMI (Body Mass Index) 35.7 kg/m2 06/10/2014 Height 64 inches 5'4" Weight 209.00 lb Heart Rate 62 /min BP Systolic Sitting 168 mmHg LA reg cuff BP Diastolic Sitting 70 mmHg LA reg cuff Respiratory Rate 12 /min BMI (Body Mass Index) 35.9 kg/m2 08/27/2013 Height 64 inches 5'4" Weight 215.00 lb Heart Rate 74 /min BP Systolic 140 mmHg BP Diastolic 62 mmHg BMI (Body Mass Index) 36.9 kg/m2 04/05/2013 Height 64 inches 5'4" Weight 214.00 lb Heart Rate 78 /min BP Systolic 130 mmHg BP Diastolic 68 mmHg Respiratory Rate 16 /min BMI (Body Mass Index) 36.7 kg/m2 09/11/2012 Height 64 inches 5'4" Weight 206.00 lb Heart Rate 80 /min BP Systolic Sitting 128 mmHg BP Diastolic Sitting 64 mmHg Respiratory Rate 20 /min BMI (Body Mass Index) 35.4 kg/m2 02/10/2012 Height 64 inches 5'4" Weight 214.00 lb Heart Rate 68 /min BP Systolic Sitting 130 mmHg L BP Diastolic Sitting 64 mmHg L BMI (Body Mass Index) 36.7 kg/m2 05/28/2011 Height 64 inches 5'4" Weight 219.00 lb Heart Rate 65 /min BP Systolic Sitting 130 mmHg BP Diastolic Sitting 76 mmHg BMI (Body Mass Index) 37.6 kg/m2 07/21/2010 Weight 223.00 lb Heart Rate 70 /min BP Systolic Sitting 132 mmHg BP Diastolic Sitting 62 mmHg 04/24/2009 Weight 212.00 lb Heart Rate 72 /min BP Systolic Sitting 130 mmHg BP Diastolic Sitting 60 mmHg Respiratory Rate 16 /min 08/28/2008 Height 64 inches 5'4" Weight 216.00 lb Heart Rate 64 /min BP Systolic Sitting 140 mmHg BP Diastolic Sitting 80 mmHg BMI (Body Mass Index) 37.1 kg/m2 01/25/2008 Height 64 inches 5'4" Weight 219.00 lb Heart Rate 62 /min BP Systolic Sitting 130 mmHg BP Diastolic Sitting 90 mmHg BP Systolic Standing 126 mmHg BP Diastolic Standing 90 mmHg Respiratory Rate 16 /min BMI (Body Mass Index) 37.6 kg/m2 07/26/2007 Height 64 inches 5'4" Weight 222.00 lb Heart Rate 78 /min BP Systolic Sitting 130 mmHg BP Diastolic Sitting 70 mmHg BP Systolic Standing 124 mmHg BP Diastolic Standing 70 mmHg BMI (Body Mass Index) 38.1 kg/m2 06/22/2007 Height 64 inches 5'4" Weight 226.25 lb Heart Rate 73 /min BP Systolic Sitting 140 mmHg BP Diastolic Sitting 70 mmHg BP Systolic Standing 124 mmHg BP Diastolic Standing 70 mmHg BMI (Body Mass Index) 38.8 kg/m2 04/21/2007 Height 64 inches 5'4" Weight 228.75 lb Heart Rate 73 /min BP Systolic Sitting 124 mmHg BP Diastolic Sitting 70 mmHg BP Systolic Standing 110 mmHg BP Diastolic Standing 80 mmHg BMI (Body Mass Index) 39.3 kg/m2 03/22/2007 Height 64 inches 5'4" Weight 233.00 lb Heart Rate 68 /min BP Systolic Sitting 130 mmHg L BP Diastolic Sitting 80 mmHg L O2 % BldC Oximetry 96 % BMI (Body Mass Index) 40.0 kg/m2 03/22/2007 Height 64 inches 5'4" 12/21/2006 Height 64 inches 5'4" Weight 233.00 lb Heart Rate 85 /min BP Systolic Sitting 160 mmHg BP Diastolic Sitting 90 mmHg BP Systolic Standing 158 mmHg BP Diastolic Standing 90 mmHg O2 % BldC Oximetry 98 % BMI (Body Mass Index) 40.0 kg/m2 06/08/2006 Height 64 inches 5'4" Weight 234.00 lb Heart Rate 75 /min BP Systolic Sitting 130 mmHg R BP Diastolic Sitting 60 mmHg R BP Systolic Standing 140 mmHg R BP Diastolic Standing 70 mmHg R BMI (Body Mass Index) 40.2 kg/m2 03/25/2006 Height 64 inches 5'4" Weight 236.00 lb Heart Rate 72 /min BP Systolic Sitting 110 mmHg R BP Diastolic Sitting 70 mmHg R BP Systolic Standing 110 mmHg R BP Diastolic Standing 64 mmHg R BMI (Body Mass Index) 40.5 kg/m2 09/22/2005 Height 64 inches 5'4" Weight 241.00 lb Heart Rate 77 /min BP Systolic Sitting 130 mmHg R BP Diastolic Sitting 70 mmHg R BP Systolic Standing 124 mmHg R BP Diastolic Standing 80 mmHg R O2 % BldC Oximetry 95 % BMI (Body Mass Index) 41.4 kg/m2 07/16/2005 Height 64 inches 5'4" Weight 248.00 lb Heart Rate 66 /min BP Systolic Sitting 140 mmHg L BP Diastolic Sitting 78 mmHg L BP Systolic Standing 150 mmHg L BP Diastolic Standing 70 mmHg L BMI (Body Mass Index) 42.6 kg/m2 07/09/2005 Height 64 inches 5'4" Weight 245.00 lb Heart Rate 70 /min BP Systolic Sitting 140 mmHg L BP Diastolic Sitting 78 mmHg L BP Systolic Standing 130 mmHg L BP Diastolic Standing 70 mmHg L O2 % BldC Oximetry 95 % BMI (Body Mass Index) 42.0 kg/m2 07/02/2005 Height 64 inches 5'4" Weight 244.00 lb Heart Rate 84 /min BP Systolic Sitting 110 mmHg BP Diastolic Sitting 70 mmHg BP Systolic Standing 94 mmHg BP Diastolic Standing 60 mmHg BMI (Body Mass Index) 41.9 kg/m2 06/25/2005 Height 64 inches 5'4" Weight 244.00 lb Heart Rate 81 /min BP Systolic Sitting 112 mmHg BP Diastolic Sitting 70 mmHg BP Systolic Standing 100 mmHg BP Diastolic Standing 80 mmHg O2 % BldC Oximetry 95 % BMI (Body Mass Index) 41.9 kg/m2 06/17/2005 Height 64 inches 5'4" Weight 240.00 lb Heart Rate 104 /min BP Systolic Sitting 144 mmHg R BP Diastolic Sitting 80 mmHg R BP Systolic Standing 126 mmHg R BP Diastolic Standing 68 mmHg R O2 % BldC Oximetry 94 % BMI (Body Mass Index) 41.2 kg/m2 06/03/2005 Height 64 inches 5'4" Weight 242.00 lb Heart Rate 78 /min BP Systolic Sitting 104 mmHg R BP Diastolic Sitting 60 mmHg R BP Systolic Standing 98 mmHg R BP Diastolic Standing 62 mmHg R O2 % BldC Oximetry 95 % BMI (Body Mass Index) 41.5 kg/m2 04/08/2005 Height 64 inches 5'4" Weight 249.00 lb Heart Rate 89 /min BP Systolic Sitting 114 mmHg R BP Diastolic Sitting 80 mmHg R BP Systolic Standing 138 mmHg R BP Diastolic Standing 80 mmHg R O2 % BldC Oximetry 95 % BMI (Body Mass Index) 42.7 kg/m2 05/21/2004 Height 64 inches 5'4" Weight 232.00 lb Heart Rate 51 /min BP Systolic Sitting 134 mmHg L BP Diastolic Sitting 60 mmHg L BP Systolic Standing 130 mmHg L BP Diastolic Standing 70 mmHg L BMI (Body Mass Index) 39.8 kg/m2 04/23/2004 Weight 227.00 lb Heart Rate 82 /min BP Systolic Sitting 124 mmHg BP Diastolic Sitting 78 mmHg BP Systolic Standing 110 mmHg BP Diastolic Standing 80 mmHg O2 % BldC Oximetry 96 % 04/08/2004 Height 64 inches 5'4" Weight 228.00 lb Heart Rate 60 /min BP Systolic Sitting 100 mmHg L BP Diastolic Sitting 60 mmHg L BP Systolic Standing 104 mmHg L BP Diastolic Standing 64 mmHg L BMI (Body Mass Index) 39.1 kg/m2 03/26/2004 Height 64 inches Weight 228.00 lb Heart Rate 60 /min BP Systolic Sitting 150 mmHg BP Diastolic Sitting 80 mmHg BP Systolic Standing 150 mmHg BP Diastolic Standing 80 mmHg BMI (Body Mass Index) 39.1 kg/m2 03/05/2004 Height 64 inches Weight 226.00 lb Heart Rate 68 /min BP Systolic Sitting 100 mmHg BP Diastolic Sitting 60 mmHg BP Systolic Standing 90 mmHg BP Diastolic Standing 60 mmHg BMI (Body Mass Index) 38.8 kg/m2 Results Test Date Test Result H/L Range Note Laboratory test finding 06/01/2017 Troponin-I (TnI) 0.01 ng/mL <0.04 CBC Auto Diff 06/01/2017 White Blood Count 9.6 10^3/uL 3.5-10.8 Red Blood Count 5.14 10^6/uL 4.0-5.4 Hemoglobin 14.0 g/dL 12.0-16.0 Hematocrit 43 % 35-47 Mean Corpuscular Volume 84 fL 80-97 Mean Corpuscular Hemoglobin 27 pg 27-31 Mean Corpuscular HGB Conc 33 g/dL 31-36 Red Cell Distribution Width 15 % 10.5-15 Platelet Count 278 10^3/uL 150-450 Mean Platelet Volume 9 um3 7.4-10.4 Abs Neutrophils 6.4 10^3/uL 1.5-7.7 Abs Lymphocytes 2.2 10^3/uL 1.0-4.8 Abs Monocytes 0.7 10^3/uL 0-0.8 Abs Eosinophils 0.2 10^3/uL 0-0.6 Abs Basophils 0.1 10^3/uL 0-0.2 Abs Nucleated RBC 0.01 10^3/uL Granulocyte % 66.8 % 38-83 Lymphocyte % 22.9 % Low 25-47 Monocyte % 7.6 % 1-9 Eosinophil % 2.2 % 0-6 Basophil % 0.5 % 0-2 Nucleated Red Blood Cells % 0.1 Laboratory test finding 06/01/2017 B-Type Natriuretic 200 pg/mL High 1 Peptide BNP Comp Metabolic Panel 06/01/2017 Sodium 136 mmol/L 133-145 Potassium 4.2 mmol/L 3.5-5.0 Chloride 100 mmol/L Low 101-111 Co2 Carbon Dioxide 28 mmol/L 22-32 Anion Gap 8 mmol/L 2-11 Glucose 67 mg/dL Low 70-100 Blood Urea Nitrogen 17 mg/dL 6-24 Creatinine 0.60 mg/dL 0.51-0.95 BUN/Creatinine Ratio 28.3 High 8-20 Calcium 9.2 mg/dL 8.6-10.3 Total Protein 6.9 g/dL 6.4-8.9 Albumin 3.8 g/dL 3.2-5.2 Globulin 3.1 g/dL 2-4 Albumin/Globulin Ratio 1.2 1-3 Total Bilirubin 0.40 mg/dL 0.2-1.0 Alkaline Phosphatase 50 U/L 34-104 Alt 10 U/L 7-52 Ast 13 U/L 13-39 Egfr Non- 96.7 >60 Egfr 124.3 >60 2 Laboratory test finding 06/01/2017 TSH (Thyroid Stim Horm) 1.43 mcIU/mL 0.34-5.60 CRP High Sensitivity 4.34 mg/L 3 Erythrocyte Sed Rate 31 mm/Hr 0-40 Istat BUN/Crea/Egfr/V Mainct 05/18/2017 Poc Bun Mainct 20 mg/dL High 9-18 Poc Crea Mainct 0.7 mg/dL 0.6-0.9 GFR Non- MCT 80.9 >60 GFR Mainct 104.1 >60 4 CBC Auto Diff 12/19/2015 White Blood Count 10.0 10^3/uL 3.5-10.8 Red Blood Count 5.15 10^6/uL 4.0-5.4 Hemoglobin 15.2 g/dL 12.0-16.0 Hematocrit 46 % 35-47 Mean Corpuscular Volume 90 fL 80-97 Mean Corpuscular Hemoglobin 29 pg 27-31 Mean Corpuscular HGB Conc 33 g/dL 31-36 Red Cell Distribution Width 14 % 10.5-15 Platelet Count 277 10^3/uL 150-450 Mean Platelet Volume 9 um3 7.4-10.4 Abs Neutrophils 7.2 10^3/uL 1.5-7.7 Abs Lymphocytes 1.9 10^3/uL 1.0-4.8 Abs Monocytes 0.7 10^3/uL 0-0.8 Abs Eosinophils 0.2 10^3/uL 0-0.6 Abs Basophils 0.1 10^3/uL 0-0.2 Abs Nucleated RBC 0.02 10^3/uL Granulocyte % 72.0 % 38-83 Lymphocyte % 18.6 % Low 25-47 Monocyte % 6.8 % 1-9 Eosinophil % 1.7 % 0-6 Basophil % 0.9 % 0-2 Nucleated Red Blood Cells % 0.2 Basic Metabolic Panel 12/19/2015 Sodium 134 mmol/L 133-145 Potassium 4.1 mmol/L 3.5-5.0 Chloride 96 mmol/L Low 101-111 Co2 Carbon Dioxide 32 mmol/L 22-32 Anion Gap 6 mmol/L 2-11 Glucose 169 mg/dL High 70-100 Blood Urea Nitrogen 17 mg/dL 6-24 Creatinine 0.70 mg/dL 0.51-0.95 BUN/Creatinine Ratio 24.3 High 8-20 Calcium 9.4 mg/dL 8.6-10.3 Egfr Non- 81.4 >60 Egfr 104.6 >60 5 Basic Metabolic Panel 12/18/2015 Sodium 135 mmol/L 133-145 Potassium 4.2 mmol/L 3.5-5.0 Chloride 96 mmol/L Low 101-111 Co2 Carbon Dioxide 31 mmol/L 22-32 Anion Gap 8 mmol/L 2-11 Glucose 155 mg/dL High 70-100 Blood Urea Nitrogen 18 mg/dL 6-24 Creatinine 0.68 mg/dL 0.51-0.95 BUN/Creatinine Ratio 26.5 High 8-20 Calcium 9.5 mg/dL 8.6-10.3 Egfr Non- 84.1 >60 Egfr 108.2 >60 6 Basic Metabolic Panel 11/05/2015 Sodium 137 mmol/L 133-145 7 Potassium 4.0 mmol/L 3.5-5.0 7 Chloride 99 mmol/L Low 101-111 7 Co2 Carbon Dioxide 30 mmol/L 22-32 7 Anion Gap 8 mmol/L 2-11 7 Glucose 149 mg/dL High 70-100 7 Blood Urea Nitrogen 16 mg/dL 6-24 7 Creatinine 0.63 mg/dL 0.51-0.95 7 BUN/Creatinine Ratio 25.4 High 8-20 7 Calcium 9.2 mg/dL 8.6-10.3 7 Egfr Non- 91.9 >60 7 Egfr 118.2 >60 7, 8 Laboratory test finding 11/05/2015 Inr/Protime 1.19 High 0.89-1.11 7, 9 Partial Thrombo Time PTT 39.2 seconds High 26.0-36.3 7, 10 Inr/Protime 11/03/2015 Inr 1.68 High 0.89-1.11 Basic Metabolic Panel 11/03/2015 Sodium 138 mmol/L 133-145 Potassium 3.9 mmol/L 3.5-5.0 Chloride 98 mmol/L Low 101-111 Co2 Carbon Dioxide 30 mmol/L 22-32 Anion Gap 10 mmol/L 2-11 Glucose 136 mg/dL High 70-100 Blood Urea Nitrogen 12 mg/dL 6-24 Creatinine 0.58 mg/dL 0.51-0.95 BUN/Creatinine Ratio 20.7 High 8-20 Calcium 9.6 mg/dL 8.6-10.3 Egfr Non- 101.1 >60 Egfr 130.0 >60 11 CBC Auto Diff 11/03/2015 White Blood Count 11.4 10^3/uL High 3.5-10.8 Red Blood Count 5.25 10^6/uL 4.0-5.4 Hemoglobin 15.2 g/dL 12.0-16.0 Hematocrit 47 % 35-47 Mean Corpuscular Volume 90 fL 80-97 Mean Corpuscular Hemoglobin 29 pg 27-31 Mean Corpuscular HGB Conc 32 g/dL 31-36 Red Cell Distribution Width 14 % 10.5-15 Platelet Count 306 10^3/uL 150-450 Mean Platelet Volume 9 um3 7.4-10.4 Abs Neutrophils 8.7 10^3/uL High 1.5-7.7 Abs Lymphocytes 2.0 10^3/uL 1.0-4.8 Abs Monocytes 0.6 10^3/uL 0-0.8 Abs Eosinophils 0.1 10^3/uL 0-0.6 Abs Basophils 0.1 10^3/uL 0-0.2 Abs Nucleated RBC 0.01 10^3/uL Granulocyte % 76.2 % 38-83 Lymphocyte % 17.3 % Low 25-47 Monocyte % 5.1 % 1-9 Eosinophil % 0.5 % 0-6 Basophil % 0.9 % 0-2 Nucleated Red Blood Cells % 0.1 Surgical Pathology 07/02/2014 S RUN DATE: 07/03/ <SEE 12 NOTE> Basic Metabolic Panel 06/25/2014 Sodium 136 mmol/L 133-145 Potassium 4.1 mmol/L 3.7-5.6 Chloride 99 mmol/L Low 101-111 Co2 Carbon Dioxide 30 mmol/L 22-32 Anion Gap 7 mmol/L 2-11 Glucose 99 mg/dL 70-100 Blood Urea Nitrogen 20 mg/dL 6-24 Creatinine 0.68 mg/dL 0.51-0.95 BUN/Creatinine Ratio 29.4 High 8-20 Calcium 9.2 mg/dL 8.6-10.3 Egfr Non- 84.4 >60 Egfr 108.5 >60 13 Comp Metabolic Panel 04/17/2013 Sodium 140 mmol/L 133-145 Potassium 4.1 mmol/L 3.5-5.0 Chloride 103 mmol/L 101-111 Co2 Carbon Dioxide 27.0 mmol/L 22-32 Anion Gap 10.0 mmol/L 2-11 Glucose 146 mg/dL High 70-100 Blood Urea Nitrogen 10 mg/dL 6-24 Creatinine 0.50 mg/dL 0.50-1.40 BUN/Creatinine Ratio 20.0 8-20 Calcium 9.1 mg/dL 8.1-9.9 Total Protein 6.0 g/dL Low 6.2-8.1 Albumin 3.2 g/dL 3.2-5.2 Globulin 2.8 g/dL 2-4 Albumin/Globulin Ratio 1.1 1-3 Total Bilirubin 0.9 mg/dL 0.4-1.5 Alkaline Phosphatase 54 U/L 30-110 Alt 21 U/L 14-54 Ast 20 U/L 12-42 Egfr Non- 120.9 >60 Egfr 155.5 >60 14 Lipid Profile (Trig/Chol/HDL) 04/17/2013 Triglycerides 208 mg/dL High 40- 200 Cholesterol 421 mg/dL High Less than 200 HDL Cholesterol 40 mg/dL 40-60 15 Cholesterol/HDL Ratio 10.5 Average High 1-4.44 LDL Cholesterol 339.4 High Less Than 100 16 Lipid Panel - [facility] 04/17/2013 Creatine Kinase 34 U/L 0-200 17 Lipid Panel - [facility] 01/08/2013 Creatine Kinase 26 U/L 0-200 18 Comp Metabolic Panel 01/08/2013 Sodium 139 mmol/L 133-145 Potassium 4.2 mmol/L 3.5-5.0 Chloride 101 mmol/L 101-111 Co2 Carbon Dioxide 30.0 mmol/L 22-32 Anion Gap 8.0 mmol/L 2-11 Glucose 146 mg/dL High 70-100 Blood Urea Nitrogen 17 mg/dL 6-24 Creatinine 0.50 mg/dL 0.50-1.40 BUN/Creatinine Ratio 34.0 High 8-20 Calcium 9.3 mg/dL 8.1-9.9 Total Protein 7.1 g/dL 6.2-8.1 Albumin 3.3 g/dL 3.2-5.2 Globulin 3.8 g/dL 2-4 Albumin/Globulin Ratio 0.9 Low 1-3 Total Bilirubin 0.9 mg/dL 0.4-1.5 Alkaline Phosphatase 69 U/L 30-110 Alt 28 U/L 14-54 Ast 22 U/L 12-42 Egfr Non- 120.9 >60 Egfr 155.5 >60 19 Lipid Profile (Trig/Chol/HDL) 01/08/2013 Triglycerides 226 mg/dL High 40- 200 Cholesterol 376 mg/dL High Less than 200 HDL Cholesterol 47 mg/dL 40-60 20 Cholesterol/HDL Ratio 8.0 Average High 1-4.44 LDL Cholesterol 283.8 mg/dL High Less Than 100 21 Lipid Panel - [facility] 08/28/2012 Creatine Kinase 22 U/L 0-200 22 Comp Metabolic Panel 08/28/2012 Sodium 134 mmol/L 133-145 Potassium 4.2 mmol/L 3.5-5.0 Chloride 96 mmol/L Low 101-111 Co2 Carbon Dioxide 30.0 mmol/L 22-32 Anion Gap 8.0 mmol/L 2-11 Glucose 134 mg/dL High 70-100 Blood Urea Nitrogen 15 mg/dL 6-24 Creatinine 0.60 mg/dL 0.50-1.40 BUN/Creatinine Ratio 25.0 High 8-20 Calcium 9.8 mg/dL 8.1-9.9 Total Protein 6.7 GM/DL 6.2-8.1 Albumin 3.5 GM/DL 3.2-5.2 Globulin 3.2 GM/DL 2-4 Albumin/Globulin Ratio 1.1 1-3 Total Bilirubin 1.0 mg/dL 0.1-1.0 23 Alkaline Phosphatase 76 U/L 30-110 Alt 22 U/L 14-54 Ast 22 U/L 12-42 Egfr Non- 98.0 >60 Egfr 126.0 >60 24 Lipid Profile (Trig/Chol/HDL) 08/28/2012 Triglycerides 232 mg/dL High 40- 200 Cholesterol 463 mg/dL High Less than 200 25 HDL Cholesterol 42 mg/dL 40-60 26 Cholesterol/HDL Ratio 11.0 AVERAGE High 1-4.44 LDL Cholesterol 374.6 mg/dL High Less Than 100 Comp Metabolic Panel 05/08/2012 Sodium 138 mmol/L 135-145 27 Potassium 4.6 mmol/L 3.5-5.0 27 Chloride 100 mmol/L Low 101-111 27 Co2 (Carbon Dioxide) 30.0 mmol/L 22-32 27 Anion Gap 8.0 mmol/L 2-11 27, 28 Glucose 127 mg/dL High 70-100 27 BUN 16 mg/dL 6-24 27 Creatinine 0.6 mg/dL 0.50-1.40 27 One Over Creatinine 1.66 27 BUN/Creatinine Ratio 26.7 High 8-20 27 Calcium 9.5 mg/dL 8.1-9.9 27 Total Protein 6.5 GM/DL 6.2-8.1 27 Albumin 3.3 GM/DL 3.2-5.2 27 Globulin 3.2 GM/DL 2-4 27 Albumin/Globulin Ratio 1.0 1-3 27 Bilirubin Total 0.9 mg/dL 0.4-1.5 27, 29 Alkaline Phosphatase 75 U/L 30-110 27 Alt (SGPT) 28 U/L 14-54 27 Ast (Sgot) 19 U/L 12-42 27 eGFR Non- 98.3 > 60 27 eGFR 126.4 > 60 27, 30 Lipid Panel - [facility] 05/08/2012 CPK (Creatine Kinase) 34 U/L 0-170 27 Lipid Profile 05/08/2012 Triglyceride 219 mg/dL High 40-200 27 (Trig/Chol/HDL) Cholesterol 374 mg/dL High Less Than 200 27, 31 High Density Lipoprotein 43 mg/dL 40-60 27, 32 Cholesterol/HDL Ratio 8.70 AVERAGE High 1-4.44 27 Low Density Lipoprotein 287 mg/dL High Less Than 100 27, 33 Lipid Panel - [facility] 09/20/2011 CPK (Creatine Kinase) 62 U/L 0-170 Comp Metabolic Panel 09/20/2011 Sodium 138 mmol/L 135-145 Potassium 4.3 mmol/L 3.5-5.0 Chloride 98 mmol/L Low 101-111 Co2 (Carbon Dioxide) 30.0 mmol/L 22-32 Anion Gap 10.0 mmol/L 2-11 34 Glucose 155 mg/dL High 70-100 BUN 17 mg/dL 6-24 Creatinine 0.7 mg/dL 0.50-1.40 One Over Creatinine 1.42 BUN/Creatinine Ratio 24.3 High 8-20 Calcium 9.9 mg/dL 8.1-9.9 Total Protein 5.9 GM/DL Low 6.2-8.1 Albumin 3.4 GM/DL 3.2-5.2 Globulin 2.5 GM/DL 2-4 Albumin/Globulin Ratio 1.4 1-3 Bilirubin Total 0.6 mg/dL 0.4-1.5 35 Alkaline Phosphatase 51 U/L 30-110 Alt (SGPT) 22 U/L 14-54 Ast (Sgot) 21 U/L 12-42 eGFR Non- 82.3 > 60 eGFR 105.8 > 60 36 Lipid Profile (Trig/Chol/HDL) 09/20/2011 Triglyceride 187 mg/dL 40-200 Cholesterol 311 mg/dL High Less Than 200 37 High Density Lipoprotein 37 mg/dL Low 40-60 38 Cholesterol/HDL Ratio 8.41 AVERAGE High 1-4.44 Low Density Lipoprotein 237 mg/dL High Less Than 100 39 CBC With Manual Diff 01/16/2010 White Blood Count 8.9 CUMM 4.8-10.8 40 Red Cell Count 5.04 CUMM 4.2-5.4 40 Hemoglobin 14.7 g/dL 12.0-16.0 40 Hematocrit 44 % 35-47 40 Mean Corpuscular Volume 87 um3 79-97 40 Mean Corpuscular Hemoglob 29 pg 27-31 40 Mean Corpuscular HGB Cone 34 g/dL 32-36 40 Redcell Distribution WDTH 15 % 10.5-15 40 Platelet Count 393 CUMM 150-450 40 Mean Platelet Volume 8.7 um3 7.4-10.4 40 Polysegmented Neutrophil 67 % 38-83 40 Lymphocyte 21 % Low 25-47 40 Monocyte 9 % 0-13 40 Eosenophil 3 % 0-6 40 Absolute Neutrophil Count 5.9 40 Anisocytosis SLIGHT 40 Basic Metabolic Panel 01/16/2010 Sodium 137 mmol/L 135-145 40 Potassium 4.3 mmol/L 3.5-5.0 40 Chloride 96 mmol/L Low 101-111 40 Co2 (Carbon Dioxide) 32.0 mmol/L 22-32 40 Anion Gap 9.0 mmol/L 2-11 40, 41 Glucose 102 mg/dL High 70-100 40, 42 BUN 21 mg/dL 6-24 40 Creatinine 0.90 mg/dL 0.50-1.40 40 One Over Creatinine 1.10 40 BUN/Creatinine Ratio 23.3 High 8-20 40 Calcium 10.2 mg/dL High 8.1-9.9 40, 43 eGFR Non- 65.8 > 60 40 eGFR 79.6 > 60 40, 44 1 >100 to <200 pg/mL: likely compensated congestive heart failure (CHF) 200 to 400 pg/mL: likely moderate CHF >400 pg/mL: likely moderate to severe CHF 2 Because ethnic data is not always readily available, this report includes an eGFR for both -Americans and non- Americans. The National Kidney Disease Education Program (NKDEP) does not endorse the use of the MDRD equation for patients that are not between the ages of 18 and 70, are , have extremes of body size, muscle mass, or nutritional status, or are non- or non-. According to the National Kidney Foundation, irrespective of diagnosis, the stage of the disease is based on the level of kidney function: Stage Description GFR(mL/min/1.73 m(2)) 1 Kidney damage with normal or decreased GFR 90 2 Kidney damage with mild decrease in GFR 60-89 3 Moderate decrease in GFR 30-59 4 Severe decrease in GFR 15-29 5 Kidney failure <15 (or dialysis) 3 Low risk: <1.00 Average risk: 1.00-3.00 High risk: >3.00 4 Because ethnic data is not always readily available, this report includes an eGFR for both -Americans and non- Americans. The National Kidney Disease Education Program (NKDEP) does not endorse the use of the MDRD equation for patients that are not between the ages of 18 and 70, are , have extremes of body size, muscle mass, or nutritional status, or are non- or non-. According to the National Kidney Foundation, irrespective of diagnosis, the stage of the disease is based on the level of kidney function: Stage Description GFR(mL/min/1.73 m(2)) 1 Kidney damage with normal or decreased GFR 90 2 Kidney damage with mild decrease in GFR 60-89 3 Moderate decrease in GFR 30-59 4 Severe decrease in GFR 15-29 5 Kidney failure <15 (or dialysis) 5 Because ethnic data is not always readily available, this report includes an eGFR for both -Americans and non- Americans. The National Kidney Disease Education Program (NKDEP) does not endorse the use of the MDRD equation for patients that are not between the ages of 18 and 70, are , have extremes of body size, muscle mass, or nutritional status, or are non- or non-. According to the National Kidney Foundation, irrespective of diagnosis, the stage of the disease is based on the level of kidney function: Stage Description GFR(mL/min/1.73 m(2)) 1 Kidney damage with normal or decreased GFR 90 2 Kidney damage with mild decrease in GFR 60-89 3 Moderate decrease in GFR 30-59 4 Severe decrease in GFR 15-29 5 Kidney failure <15 (or dialysis) 6 Because ethnic data is not always readily available, this report includes an eGFR for both -Americans and non- Americans. The National Kidney Disease Education Program (NKDEP) does not endorse the use of the MDRD equation for patients that are not between the ages of 18 and 70, are , have extremes of body size, muscle mass, or nutritional status, or are non- or non-. According to the National Kidney Foundation, irrespective of diagnosis, the stage of the disease is based on the level of kidney function: Stage Description GFR(mL/min/1.73 m(2)) 1 Kidney damage with normal or decreased GFR 90 2 Kidney damage with mild decrease in GFR 60-89 3 Moderate decrease in GFR 30-59 4 Severe decrease in GFR 15-29 5 Kidney failure <15 (or dialysis) 7 CALL RESULTS TO 4591 8 Because ethnic data is not always readily available, this report includes an eGFR for both -Americans and non- Americans. The National Kidney Disease Education Program (NKDEP) does not endorse the use of the MDRD equation for patients that are not between the ages of 18 and 70, are , have extremes of body size, muscle mass, or nutritional status, or are non- or non-. According to the National Kidney Foundation, irrespective of diagnosis, the stage of the disease is based on the level of kidney function: Stage Description GFR(mL/min/1.73 m(2)) 1 Kidney damage with normal or decreased GFR 90 2 Kidney damage with mild decrease in GFR 60-89 3 Moderate decrease in GFR 30-59 4 Severe decrease in GFR 15-29 5 Kidney failure <15 (or dialysis) 9 CALL RESULTS TO 4591 10 CALL RESULTS TO 4591 11 Because ethnic data is not always readily available, this report includes an eGFR for both -Americans and non- Americans. The National Kidney Disease Education Program (NKDEP) does not endorse the use of the MDRD equation for patients that are not between the ages of 18 and 70, are , have extremes of body size, muscle mass, or nutritional status, or are non- or non-. According to the National Kidney Foundation, irrespective of diagnosis, the stage of the disease is based on the level of kidney function: Stage Description GFR(mL/min/1.73 m(2)) 1 Kidney damage with normal or decreased GFR 90 2 Kidney damage with mild decrease in GFR 60-89 3 Moderate decrease in GFR 30-59 4 Severe decrease in GFR 15-29 5 Kidney failure <15 (or dialysis) 12 RUN DATE: 07/03/[address] [facility] LAB LIVE PAGE 1 RUN TIME: [address] [place], [place] [address] Specimen Inquiry Name: MAGAN ASHLEY : [address]: Jose Alberto Wylie MD Acct: [id number] Unit: [id number] AGE: 74 Location: [facility] Re07/02/14 SEX: F Status: REG REF SPEC: [id number] JEANETTE: 07/02/14- SUBM DR: Jose Alberto Wylie MD REQ: [id number] RECD: 07/02/14-1048 STATUS: SOUT _ ORDERED: LEVEL I FINAL DIAGNOSIS Pacemaker generator: Foreign body (pacemaker generator) (Gross diagnosis). PRE-OPERATIVE DIAGNOSIS Atrial fibrillation, bradycardia. GROSS DESCRIPTION The specimen is received in formalin labeled Magan Ashley and consists of a 4.6 x 4.4 x 0.9 cm. 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 The following inscription is identified: [employer] ADAPTA ADDR01 DDDR SN [id number]. Per established hospital medical staff protocol no tissue is submitted. Gross only. Signed (signature on file) Fady Prado MD [id number] END OF REPORT * ML=Testing performed at Main Lab DEPARTMENT OF PATHOLOGY, [address] [place] [address] Fady Prado M.D. Director [facility] # [id number] 13 Because ethnic data is not always readily available, this report includes an eGFR for both -Americans and non- Americans. The National Kidney Disease Education Program (NKDEP) does not endorse the use of the MDRD equation for patients that are not between the ages of 18 and 70, are , have extremes of body size, muscle mass, or nutritional status, or are non- or non-. According to the National Kidney Foundation, irrespective of diagnosis, the stage of the disease is based on the level of kidney function: Stage Description GFR(mL/min/1.73 m(2)) 1 Kidney damage with normal or decreased GFR 90 2 Kidney damage with mild decrease in GFR 60-89 3 Moderate decrease in GFR 30-59 4 Severe decrease in GFR 15-29 5 Kidney failure <15 (or dialysis) 14 Because ethnic data is not always readily available, this report includes an eGFR for both -Americans and non- Americans. The National Kidney Disease Education Program (NKDEP) does not endorse the use of the MDRD equation for patients that are not between the ages of 18 and 70, are , have extremes of body size, muscle mass, or nutritional status, or are non- or non-. According to the National Kidney Foundation, irrespective of diagnosis, the stage of the disease is based on the level of kidney function: Stage Description GFR(mL/min/1.73 m(2)) 1 Kidney damage with normal or decreased GFR 90 2 Kidney damage with mild decrease in GFR 60-89 3 Moderate decrease in GFR 30-59 4 Severe decrease in GFR 15-29 5 Kidney failure <15 (or dialysis) 15 HDL Interpretation: Undesirable: High Risk: Less than 40 mg/dL Desirable: Low Risk: Greater than 60 mg/dL 16 LDL Interpretation: Low Risk Optimal Level: LDL Less than 100 mg/dL Near or Above Optimal: LDL 100-129 mg/dL Borderline High Risk: LDL 130-159 mg/dL High Risk: LDL 160-189 mg/dL Very High Risk: LDL Greater than 189 mg/dL 17 FASTING 18 FASTING 19 Because ethnic data is not always readily available, this report includes an eGFR for both -Americans and non- Americans. The National Kidney Disease Education Program (NKDEP) does not endorse the use of the MDRD equation for patients that are not between the ages of 18 and 70, are , have extremes of body size, muscle mass, or nutritional status, or are non- or non-. According to the National Kidney Foundation, irrespective of diagnosis, the stage of the disease is based on the level of kidney function: Stage Description GFR(mL/min/1.73 m(2)) 1 Kidney damage with normal or decreased GFR 90 2 Kidney damage with mild decrease in GFR 60-89 3 Moderate decrease in GFR 30-59 4 Severe decrease in GFR 15-29 5 Kidney failure <15 (or dialysis) 20 HDL Interpretation: Undesirable: High Risk: Less than 40 MG/DL Desirable: Low Risk: Greater than 60 MG/DL 21 LDL Interpretation: Low Risk Optimal Level: LDL Less than 100 MG/DL Near or Above Optimal: LDL 100-129 MG/DL Borderline High Risk: LDL 130-159 MG/DL High Risk: LDL 160-189 MG/DL Very High Risk: LDL Greater than 189 MG/DL 22 FASTING 23 A metabolite of Naproxen, O-desmethylnaproxen, has been shown to interfere with the Jendrassik-Amanda method for measuring total bilirubin. Samples from patients who have taken Naproxen have shown spurious elevation in total bilirubin levels. 24 Because ethnic data is not always readily available, this report includes an eGFR for both -Americans and non- Americans. The National Kidney Disease Education Program (NKDEP) does not endorse the use of the MDRD equation for patients that are not between the ages of 18 and 70, are , have extremes of body size, muscle mass, or nutritional status, or are non- or non-. According to the National Kidney Foundation, irrespective of diagnosis, the stage of the disease is based on the level of kidney function: Stage Description GFR(mL/min/1.73 m(2)) 1 Kidney damage with normal or decreased GFR 90 2 Kidney damage with mild decrease in GFR 60-89 3 Moderate decrease in GFR 30-59 4 Severe decrease in GFR 15-29 5 Kidney failure <15 (or dialysis) 25 Desirable: Less than 200 MG/DL Borderline-High Risk: 200-239 MG/DL High-Risk: 240 MG/DL and over 26 HDL Interpretation: Undesirable: High Risk: Less than 40 MG/DL Desirable: Low Risk: Greater than 60 MG/DL 27 FASTING 28 Anion gap measurement may be of limited value in the presence of any alkalosis, especially in a combined acid base disorder. . 29 A metabolite of Naproxen, O-desmethylnaproxen, has been shown to interfere with the Jendrassik-Amanda method for measuring total bilirubin. Samples from patients who have taken Naproxen have shown spurious elevation in total bilirubin levels. 30 Because ethnic data is not always readily available, this report includes an eGFR for both -Americans and non- Americans. The National Kidney Disease Education Program (NKDEP) does not endorse the use of the MDRD equation for patients that are not between the ages of 18 and 70, are , have extremes of body size, muscle mass, or nutritional status, or are non- or non-. According to the National Kidney Foundation, irrespective of diagnosis, the stage of the disease is based on the level of kidney function: Stage Description GFR(mL/min/1.73 m(2)) 1 Kidney damage with normal or decreased GFR 90 2 Kidney damage with mild decrease in GFR 60-89 3 Moderate decrease in GFR 30-59 4 Severe decrease in GFR 15-29 5 Kidney failure <15 (or dialysis) 31 CHOLESTEROL INTERPRETATION: Desirable: Less than 200 MG/DL Borderline-High Risk: 200-239 MG/DL High-Risk: 240 MG/DL and over 32 HDL INTERPRETATION: Undesirable: High Risk: Less than 40 MG/DL Desirable: Low Risk: Greater than 60 MG/DL 33 LDL INTERPRETATION: Low Risk Optimal Level: LDL Less than 100 MG/DL Near or Above Optimal: LDL 100-129 MG/DL Borderline High Risk: LDL 130-159 MG/DL High Risk: LDL 160-189 MG/DL Very High Risk: LDL Greater than 189 MG/DL 34 Anion gap measurement may be of limited value in the presence of any alkalosis, especially in a combined acid base disorder. . 35 A metabolite of Naproxen, O-desmethylnaproxen, has been shown to interfere with the Jendrassik-Amanda method for measuring total bilirubin. Samples from patients who have taken Naproxen have shown spurious elevation in total bilirubin levels. 36 Because ethnic data is not always readily available, this report includes an eGFR for both -Americans and non- Americans. The National Kidney Disease Education Program (NKDEP) does not endorse the use of the MDRD equation for patients that are not between the ages of 18 and 70, are , have extremes of body size, muscle mass, or nutritional status, or are non- or non-. According to the National Kidney Foundation, irrespective of diagnosis, the stage of the disease is based on the level of kidney function: Stage Description GFR(mL/min/1.73 m(2)) 1 Kidney damage with normal or decreased GFR 90 2 Kidney damage with mild decrease in GFR 60-89 3 Moderate decrease in GFR 30-59 4 Severe decrease in GFR 15-29 5 Kidney failure <15 (or dialysis) 37 CHOLESTEROL INTERPRETATION: Desirable: Less than 200 MG/DL Borderline-High Risk: 200-239 MG/DL High-Risk: 240 MG/DL and over 38 HDL INTERPRETATION: Undesirable: High Risk: Less than 40 MG/DL Desirable: Low Risk: Greater than 60 MG/DL 39 LDL INTERPRETATION: Low Risk Optimal Level: LDL Less than 100 MG/DL Near or Above Optimal: LDL 100-129 MG/DL Borderline High Risk: LDL 130-159 MG/DL High Risk: LDL 160-189 MG/DL Very High Risk: LDL Greater than 189 MG/DL 40 SDS 01/21/10 41 Anion gap measurement may be of limited value in the presence of any alkalosis, especially in a combined acid base disorder. . 42 Note change in reference range as of 06/13/08. The change was based on recommendations from the [place] [employer]. 43 Please note change in reference range effective 08 . 44 Because ethnic data is not always readily available, this report includes an eGFR for both -Americans and non- Americans. The National Kidney Disease Education Program (NKDEP) does not endorse the use of the MDRD equation for patients that are not between the ages of 18 and 70, are , have extremes of body size, muscle mass, or nutritional status, or are non- or non-. According to the National Kidney Foundation, irrespective of diagnosis, the stage of the disease is based on the level of kidney function: Stage Description GFR(mL/min/1.73 m(2)) 1 Kidney damage with normal or decreased GFR 90 2 Kidney damage with mild decrease in GFR 60-89 3 Moderate decrease in GFR 30-59 4 Severe decrease in GFR 15-29 5 Kidney failure <15 (or dialysis) Procedures Date CPT Code Description Status 12/20/2017 81720 EKG Tracing & Interpretation Completed 08/25/2017 97515 Pace Maker Eval W/Iterative Adjustment Single Lead Completed 07/13/2017 97001 EKG Tracing & Interpretation Completed 06/09/2017 15504 Stress Test Completed 06/09/2017 23517 Myocardial Perfusion Imaging Tomographic (Spect) Completed Multiple Studies 06/08/2017 57741 ECHO Transthoracic, Real-Time 2D With Doppler And Color Completed Flow 06/01/2017 84350 EKG Tracing & Interpretation Completed 03/15/2017 52937 Pace Maker Eval W/Iterative Adjustment Single Lead Completed 01/18/2017 73518 ECHO Transthorasic Realtime 2D W Doppler & Color Completed Flow Hosp 08/30/2016 98083 ECHO Transthoracic, Real-Time 2D With Doppler And Color Completed Flow 08/24/2016 20923 Pace Maker Eval W/Iterative Adjustment Single Lead Completed 07/14/2016 13471 EKG Tracing & Interpretation Completed 03/16/2016 65454 Interrogation Device Eval In Person W/DR Completed Analysis,Single,Dual,Mul 12/19/2015 05334 Cath PLMT&NJX L Ventriculog Img S&I Completed 12/19/2015 46495 Intravascular Blood Flow Velocity Completed 12/19/2015 22879 Intravasc.Blood Flow-Ea.Addtl Ves Completed 12/01/2015 40259 EKG Tracing & Interpretation Completed 11/05/2015 54563 RT & lt Cath W/Injx HRT Art&L Ventr Img S&I Completed 11/05/2015 37394 Intravascular Ultrasnd-Ea Addtl Completed 11/05/2015 95818 Intravascular Ultrasound (Coron) Completed 09/12/2015 38906 ECHO Transthoracic, Real-Time 2D With Doppler And Color Completed Flow 09/12/2015 85303 EKG Tracing & Interpretation Completed 08/25/2015 48820 Pace Maker Eval W/Iterative Adjment Dual Lead Completed 08/22/2015 01543 Treadmill Interp/Report Only Completed 08/22/2015 24314 Stress Test Supervsn W/Out I/R Completed 07/03/2015 61456 EKG Tracing & Interpretation Completed 04/11/2015 68785 Echocardiography, Transesophageal, Real Time W/Image 2D Completed W/W/O M-M 04/11/2015 33613 Pulse Wave/Continuous-Interp.RPT Completed 04/11/2015 43469 Color Flow Doppler/Interp & Reprt Completed 03/20/2015 98397 ECHO Transthoracic, Real-Time 2D With Doppler And Color Completed Flow 03/06/2015 38189 EKG Tracing & Interpretation Completed 02/17/2015 90239 Interrogation Device Eval In Person W/ Completed Analysis,Single,Dual,Mul 07/02/2014 47699 Removal With Replacement Dual Lead System Pulse Completed Generator 06/10/2014 55094 Interrogation Device Eval In Person W/ Completed Analysis,Single,Dual,Mul 05/02/2014 91537 Interrogation Device Eval In Person W/ Completed Analysis,Single,Dual,Mul 03/06/2014 38130 Interrogation Device Eval In Person W/ Completed Analysis,Single,Dual,Mul 02/01/2014 20854 Interrogation Device Eval In Person W/ Completed Analysis,Single,Dual,Mul 10/10/2013 98240 Interrogation Device Eval In Person W/ Completed Analysis,Single,Dual,Mul 08/27/2013 76061 EKG Tracing & Interpretation Completed 06/07/2013 90951 ECHO Transthoracic, Real-Time 2D With Doppler And Color Completed Flow 04/09/2013 71609 Pace Maker Eval W/Iterative Adjment Dual Lead Completed 04/05/2013 00383 EKG Tracing & Interpretation Completed 10/02/2012 42576 Interrogation Device Eval In Person W/DR Completed Analysis,Single,Dual,Mul 09/11/2012 53709 EKG Tracing & Interpretation Completed 04/13/2012 24536 Interrogation Device Eval In Person W/DR Completed Analysis,Single,Dual,Mul 02/10/2012 83751 EKG Tracing & Interpretation Completed 09/03/2011 96274 Interrogation Device Eval In Person W/DR Completed Analysis,Single,Dual,Mul 07/08/2011 44911 ECHO Transthoracic, Real-Time 2D With Doppler And Color Completed Flow 05/28/2011 50392 EKG Tracing & Interpretation Completed 03/15/2011 21065 Pace Maker Eval W/Iterative Adjment Dual Lead Completed 08/13/2010 39414 Interrogation Device Eval In Person W/DR Completed Analysis,Single,Dual,Mul 07/21/2010 08648 EKG Tracing & Interpretation Completed 02/05/2010 59862 Interrogation Device Eval In Person W/DR Completed Analysis,Single,Dual,Mul 01/14/2010 88867 ECHO Transthoracic, Real-Time 2D With Doppler And Color Completed Flow 01/13/2010 75217 Stress Test Supervsn W/Out I/R Completed 01/13/2010 30972 Treadmill Interp/Report Only Completed 01/13/2010 64617 Stress ECHO Interpretation/Report Hospital Completed 08/07/2009 40375 Pace Maker Eval W/Iterative Adjment Dual Lead Completed 04/24/2009 88141 EKG Tracing & Interpretation Completed 02/06/2009 25959 Interrogation Device Eval In Person W/ Completed Analysis,Single,Dual,Mul 08/28/2008 61318 EKG Tracing & Interpretation Completed 08/15/2008 53042 Pacemaker Check/Dual [place]/Office Completed 08/15/2008 96057 Pacemaker Check/Dual [place]/Office Completed 02/08/2008 34236 Pacemaker Check/Dual [place]/Office Completed 02/08/2008 20527 Pacemaker Check/Dual [place]/Office Completed 01/25/2008 69158 EKG Tracing & Interpretation Completed 08/10/2007 65956 Pacemaker Check/Dual [place]/Office Completed 08/10/2007 75985 Pacemaker Check/Dual [place]/Office Completed 07/26/2007 55554 EKG Tracing & Interpretation Completed 07/26/2007 61852 EKG Tracing & Interpretation Completed 06/22/2007 66873 EKG Tracing & Interpretation Completed 06/22/2007 80067 EKG Tracing & Interpretation Completed 04/21/2007 09882 EKG Tracing & Interpretation Completed 03/27/2007 20978 Color Doppler Completed 03/27/2007 22260 Color Doppler Completed 03/27/2007 46769 Pulse Doppler & Continuous Wave Completed 03/27/2007 12388 Echocardiogram Completed 03/27/2007 64089 Echocardiogram Completed 03/22/2007 81685 EKG Tracing & Interpretation Completed 03/22/2007 54479 EKG Tracing & Interpretation Completed 01/11/2007 67221 Holter Monitor Completed 12/21/2006 24899 EKG Tracing & Interpretation Completed 06/08/2006 67703 EKG Tracing & Interpretation Completed 03/25/2006 79768 EKG Tracing & Interpretation Completed 09/22/2005 91767 EKG Tracing & Interpretation Completed 07/21/2005 23810 Holter Monitor Completed 07/16/2005 77810 EKG Tracing & Interpretation Completed 07/09/2005 85563 EKG Tracing & Interpretation Completed 07/02/2005 52417 EKG Tracing & Interpretation Completed 06/25/2005 50778 EKG Tracing & Interpretation Completed 06/17/2005 38276 EKG Tracing & Interpretation Completed 06/03/2005 90081 EKG Tracing & Interpretation Completed 04/22/2005 56654 Echocardiogram Completed 04/22/2005 22109 Pulse Doppler & Continuous Wave Completed 04/22/2005 44360 Color Doppler Completed 04/20/2005 64231 ECHO/Stress Completed 04/20/2005 43483 Stress Test Completed 04/08/2005 52498 EKG Tracing & Interpretation Completed 05/21/2004 31609 EKG Tracing & Interpretation Completed 03/05/2004 60229 EKG Tracing & Interpretation Completed 02/20/2004 22428 Holter Monitor Interpretation Completed 02/14/2004 33975 Color Doppler Completed 02/14/2004 18726 Pulse Doppler & Continuous Wave Completed 02/14/2004 70823 Echocardiogram Completed 02/10/2004 80232 ECHO/Stress Completed 02/10/2004 15876 Stress Test Completed 02/10/2004 71795 IV Infusion For DX/Upt To 1 HR. Completed 02/10/2004 13139 Intro. Needle Or Intracath.,Vein Completed Encounters Type Date Location Provider CPT E/M Dx Office Visit 03/02/2018 11:00a [facility] Shanna Lozano, N.P. 34445 I49.5 I35.0 I10 Z95.0 I25.118 E78.5 Office Visit 01/26/2018 10:30a [facility] Shanna Lozano, 40864 I49.5 [facility] N.P. I35.0 I10 Z95.0 I25.118 E78.5 I50.32 Office Visit 12/20/2017 1:20p [facility] Danny Hidalgo M.D. 09755 I49.5 I35.0 R06.00 Z95.0 I10 I50.32 I25.118 E78.5 Office Visit 08/15/2017 10:30a [facility] DAX Torres 07651 I10 I50.32 I35.0 I25.118 Office Visit 07/22/2017 10:30a [facility] DAX Torres 06020 I50.32 I10 I25.118 I35.0 E78.5 Office Visit 07/13/2017 1:10p [facility] Danny Hidalgo M.D. 69673 R07.9 I35.0 R94.31 I25.118 R06.02 I50.32 I10 Office Visit 06/01/2017 10:30a [facility] DAX Torres 02673 R07.9 I35.0 Z95.0 I25.118 R06.02 Office Visit 03/06/2017 9:56a [facility], Tiny Brewster, 42473 R07.1 Hospitalists Yasmin I35.0 Z84.89 Office Visit 03/05/2017 9:56a [facility],pc Tiny Jackmanhn, 75169 R07.1 Hospitalists Yasmin I35.0 Z84.89 Office Visit 03/02/2017 2:30p [facility] Danny Hidalgo M.D. 67431 I21.4 I48.91 E11.9 I10 I35.0 I25.10 Office Visit 01/19/2017 12:40p [facility] Miguel Fanta, 30887 I21.4 Assoc, [place] Hospitalists I48.91 E11.9 I10 Office Visit 01/18/2017 3:01p [facility] Of Jose Alberto Wylie, 06237 I25.10 Clay Hoffman Office Visit 01/18/2017 12:39p [facility],pc Miguel 06145 I21.4 Hospitalists DAX Jewell I48.91 E11.9 I10 Office Visit 01/17/2017 12:38p [facility],pc Demetria Mata, N.PDuke 31452 I21.4 Hospitalists E11.9 I48.91 I10 Office Visit 08/09/2016 3:00p [facility] DAX Torres 72178 I35.0 I10 R06.02 Z95.0 I48.2 R19.7 Office Visit 07/14/2016 1:20p [facility] Danny Hidalgo M.D. 63063 I35.0 I10 I48.2 I25.10 E78.0 Office Visit 02/25/2016 9:30a [facility] DAX Torres 61442EAK I35.0 I10 I48.2 I73.9 I25.10 Office Visit 01/05/2016 11:20a [facility] Of Joaquín Miles, 21625 R06.02 [address] Sciences [address] [facility] , FACC, FSCAI H53.2 Office Visit 12/19/2015 2:31p [place] [address] H53.2 Office Visit 12/01/2015 10:40a [facility] Danny Morrison 19322 R06.02 Yasmin Hidalgo I35.0 I73.9 I10 I48.2 Office Visit 11/12/2015 11:20a [facility] Of Joaquín OrtezDuke Miles, 44990 R06.[address] [facility] , STONE, FSCAI I35.0 Office Visit 09/30/2015 2:00p [facility] DAX Torres 06452 I10 I65.23 I35.0 Z95.0 I48.2 E78.0 I25.10 R06.02 Office Visit 09/12/2015 2:20p [facility] Danny Hidalgo M.D. 25111 I48.2 I35.0 R07.9 I50.9 Office Visit 08/27/2015 11:00a [facility] DAX Torres 30514 I10 I48.2 I65.23 E78.0 Z95.0 I35.0 R06.02 Office Visit 08/22/2015 3:30p [facility] Danny Hidalgo M.D. 56263 I34.0 I10 E78.0 I35.0 I48.2 R07.9 I65.23 Office Visit 07/03/2015 2:40p [facility] Danny Hidalgo M.D. 70542 424.0 401.1 272.0 496 424.1 785.9 786.50 Office Visit 04/16/2015 10:30a [facility] DAX Torres 36681 424.1 V45.01 424.0 401.9 272.0 427.31 782.3 Office Visit 03/06/2015 1:40p [facility] Danny Hidalgo 79476 427.31 M.DDuke 424.0 424.1 401.9 272.0 782.3 Office Visit 06/12/2014 10:00a [facility] Of Jose Alberto Wylie, 69284 427.31 Plant Sciences Professor MDukeDDuke 427.81 V45.01 Office Visit 06/10/2014 11:40a [facility] Danny Hidalgo 62370 427.31 M.DDuke 427.81 V45.01 424.0 414.01 424.1 401.9 Office Visit 08/27/2013 3:00p [facility] Danny Hidalgo M.D. 61471 424.0 427.31 427.81 Office Visit 04/05/2013 3:20p [facility] Danny Hidalgo, 76288 427.81 M.D. 996.01 427.31 424.0 Office Visit 09/11/2012 2:40p [facility] Danny Hidalgo 22603 427.31 M.D. 427.81 414.01 786.50 Office Visit 02/10/2012 3:00p [facility] Danny Hidalgo 04281 427.31 M.D. 427.81 424.0 272.0 Office Visit 05/28/2011 2:20p [facility] Danny Hidalgo 26288 427.31 M.D. 427.81 414.01 424.0 Office Visit 07/21/2010 3:20p [facility] Danny Hidalgo 97253 427.81 M.D. 427.31 V45.01 414.01 Office Visit 01/13/2010 9:00a [facility] Danny Hidalgo 41531 414.01 M.D. 785.2 Office Visit 04/24/2009 3:20p [facility] Danny Hidalgo, 52201 427.81 M.D. 424.0 427.31 272.0 V45.01 Office Visit 08/28/2008 3:20p [facility] Danny Hidalgo 16754 427.81 M.D. V45.01 424.0 427.31 272.0 250.00 Office Visit 01/25/2008 3:40p [facility] Danny Hidalgo 58264 427.31 M.D. 401.1 272.0 427.81 Office Visit 07/26/2007 3:20p [facility] Danny Hidalgo, 11453 427.31 M.D. 401.1 272.0 424.0 Office Visit 06/22/2007 3:20p [facility] Danny Hidalgo, 24050 414.01 M.D. 427.31 401.1 272.0 Office Visit 04/21/2007 2:20p [facility] Danny Hidalgo, 51311 414.01 M.D. 427.31 427.81 Office Visit 03/22/2007 3:40p [facility] Danny Hidalgo, 50795 414.01 M.D. 427.31 427.81 424.1 Office Visit 12/21/2006 3:00p [facility] Danny Hidalgo, 98029 427.31 M.D. 427.81 780.4 401.1 Office Visit 06/08/2006 2:00p [facility] Danny Hidalgo, 92767 414.01 M.D. 401.1 272.0 Office Visit 03/25/2006 3:40p [facility] Danny Hidalgo, 68006 427.31 M.D. 414.01 272.0 Office Visit 09/22/2005 1:20p [facility] Danny Hidalgo M.D. 65239 413.9 414.01 427.31 Office Visit 07/16/2005 9:00a [facility] Danny Hidalgo M.D. 84525 413.9 414.01 427.31 Office Visit 07/09/2005 9:00a [facility] Danny Hidalgo 79296 427.31 M.D. 780.4 Office Visit 07/02/2005 8:40a [facility] Danny Hidalgo 71435 414.01 M.D. 427.31 Office Visit 06/25/2005 8:40a [facility] Danny Hidalgo 15086 786.50 M.D. 414.01 427.31 Office Visit 06/17/2005 9:00a [facility] Danny Hidalgo 38322 786.50 M.D. 414.01 Office Visit 06/03/2005 2:20p [facility] Danny Hidalgo 43284 786.50 M.D. 424.1 401.1 Office Visit 04/20/2005 2:00p [facility] Danny Hidalgo, 58868 794.31 M.D. 427.31 433.10 Office Visit 04/19/2005 9:40a [facility] Danny Hidalgo M.D. 56736 780.2 433.10 401.1 Office Visit 04/08/2005 2:30p [facility] Danny Hidalgo, 18824 427.31 M.D. 424.1 433.10 780.2 Office Visit 05/21/2004 3:00p [facility] Danny Hidalgo, 07680 786.59 M.D. 427.31 401.1 Office Visit 04/08/2004 3:00p [facility] Danny Hidalgo M.D. 83233 401.1 786.59 Office Visit 03/05/2004 9:40a [facility] Danny Hidalgo, 41462 786.09 M.D. 401.1 780.4 Office Visit 02/10/2004 4:00p [facility] Danny Hidalgo, 13008 786.59 M.D. 427.31 785.2 786.05 Office Visit 02/10/2004 2:20p [facility] Danny Hidalgo, 13706 786.59 M.D. 427.31 785.2 786.05 Plan of Care Future Appointment(s):05/15/2018 9:00 am - [facility] ECHO Schedule at [facility]06/06/2018 10:20 am - Danny Hidalgo M.D. at [facility]07/2018 - Shanna Lozano NJacques.I49.5 Sick sinus [id number] Nonrheumatic aortic (valve) [id number] Essential (primary) hypertensionNew Orders: Ambulatory Blood Pressure MonitorFollow up:2017 Gwen OVRecommendations: Switch Diovan to evening Try to avoid salt. 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
--- NOTE | 2018-03-17 19:11 | RAD ---
Indication: RIGHT femur pain. Comparison: February 10, 2016 RIGHT knee radiographs. Technique: AP and crosstable lateral views RIGHT femur REPORT AND IMPRESSION: Negative for fracture or articular malalignment. Peripheral vascular calcifications. Diffuse skeletal muscle atrophy. No suspicious soft tissue contour abnormality.
--- NOTE | 2018-03-17 19:13 | RAD ---
Indication: Fall yesterday. Bilateral knee pain. Comparison: February 10, 2016 RIGHT knee radiographs. Technique: AP and crosstable lateral views bilateral knees. Report: Both knees demonstrate normal articular alignment and absence of joint effusions or fracture. Only minimal degenerative arthropathy present. Diffuse bilateral skeletal muscle atrophy. Peripheral vascular calcifications. Diffuse mild soft tissue swelling. IMPRESSION: Negative for fracture. Diffuse mild soft tissue swelling of both knees.
--- NOTE | 2018-03-17 19:45 | RAD ---
INDICATION: Fall yesterday hitting forehead and left eye. COMPARISON: December 19, 2015 CT head. TECHNIQUE: Multidetector CT base of the skull through mandible without contrast. Multiplanar reformation. REPORT: Mild LEFT para midline supraorbital soft tissue swelling. Negative for soft tissue plane loculated hematoma or abnormality of the post septal orbits. The orbital and maxillary sinus margins, zygomatic arches, lamina papyracea, base of the maxilla, pterygoid plates, and nasal bones are intact. The mandible is intact. Normal temporal mandibular joint alignment. Indolent thickening of the inner table of the frontal bone. Clear paranasal sinuses and mastoid air spaces. IMPRESSION: No evidence for maxillofacial fracture. Mild LEFT para midline supraorbital soft tissue swelling. Negative for soft tissue plane loculated hematoma or abnormality of the post septal orbits.
--- NOTE | 2018-03-17 20:05 | RAD ---
Indication: Episode of dizziness yesterday with fall striking forehead, LEFT eye, and knees. Comparison: Maxillofacial CT of the same date and December 19, [address] Technique: Noncontrast CT vertex of skull through foramen magnum. Report: Moderate prominence of the cerebral sulci and cerebellar fissures reflecting atrophy. Unremarkable ventricles and basal cisterns. Decreased density in the periventricular and subcortical white matter while non-specific is most likely due to chronic microangiopathy. Negative for katz matter white matter obscuration, intra or extra-axial hemorrhage, or mass effect. Unremarkable orbital contents. Negative for calvarial or skull base fracture. Negative for scalp hematoma. Clear partially visualized paranasal sinuses and mastoid air spaces. IMPRESSION: 1. No evidence for traumatic brain injury or acute intracranial process. 2. Involutional change and stigmata of chronic small vessel ischemic disease.
[2018-03-17] MEDS ORDERED: Acetaminophen TAB* 325 MG PO ONE (20:06)
[2018-03-17 20:51] VITALS: BP 155/60
--- NOTE | 2018-03-17 20:52 | ED ---
Josue Martinez Rebecca, scribed for Jose Angel Chung MD on 03/17/18 at 1822 . Lower Extremity - HPI Summary HPI Summary: Pt is a 77 y/o F who presents to ED c/o bilateral knee pain s/p mechanical fall. Pt reports that yesterday while walking she experienced an episode of dizziness and fell sideways to the left. Negative LOC. Currently, she c/o bilateral knee pain with the right greater than the left. Associated pain is currently moderate, ranked 5/10. Sx aggravated by ambulation, alleviated by nothing. Additionally notes right thigh pain. Denies hip pain, neck pain and DELEON. - History of Current Complaint Chief Complaint: EDDizziness Stated Complaint: FALL Time Seen by Provider: 03/17/18 18:00 Hx Obtained From: Patient Mechanism Of Injury: Fall From A Standing Position Onset of Pain: Days - 1 day, Prior to Arrival Onset/Duration: Still Present Severity Currently: Moderate Pain Intensity: 5 Pain Scale Used: 0-10 Numeric Location: Is Discrete @ - Bilateral knees; right thigh Associated Signs And Symptoms: Positive: Knee Pain - bilateral Aggravating Factor(s): Ambulation Alleviating Factor(s): Nothing - Allergies/Home Medications Allergies/Adverse Reactions: Allergies Allergy/AdvReac Type Severity Reaction Status Date / Time diazepam [From Valium] Allergy Blurred Verified 03/17/18 17:24 Vision diphenhydramine Allergy Blurred Verified 03/17/18 17:24 [From Benadryl] Vision ezetimibe [From Vytorin] Allergy Muscle Ache Verified 03/17/18 17:24 niacin Allergy Itching Verified 03/17/18 17:24 simvastatin [From Vytorin] Allergy Muscle Ache Verified 03/17/18 17:24 Zmeypsb-[id number]-Uln Reductase Allergy Muscle Ache Verified 03/17/18 17:24 Inhibitor PACER -NOT MR COMPATIBLE Allergy PACER -NOT Uncoded 03/17/18 17:24 MR COMPATIBLE PMH/Surg Hx/FS Hx/Imm Hx Endocrine/Hematology History: Reports: Hx Anticoagulant Therapy, Hx Diabetes - TYPE II- ON ORAL MEDICATION FOR, Hx Thyroid Disease - HYPOTHYROID Cardiovascular History: Reports: Hx Angina, Hx Auto Implanted Cardiovert Defib - pacer, Hx Coronary Artery Disease, Hx Hypercholesterolemia, Hx Hypertension - ON MEDICATION FOR, Hx Pacemaker/ICD - NOT MR COMPATIBLE ( ADDRL1 ADAPTA), Hx Valvular Heart Disease, Other Cardiovascular Problems/Disorders - HX OF A-FIB; CAROTID STENOSIS Denies: Hx Myocardial Infarction Respiratory History: Denies: Hx Asthma, Hx Chronic Obstructive Pulmonary Disease (COPD) GI History: Reports: Hx Gastroesophageal Reflux Disease, Hx Ulcer - HX OF History: Denies: Hx Renal Disease Musculoskeletal History: Reports: Hx Arthritis - NECK, HANDS, KNEES Denies: Hx Osteoporosis Sensory History: Reports: Hx Cataracts, Hx Contacts or Glasses - GLASSES-READING Denies: Hx Hearing Aid Opthamlomology History: Reports: Hx Cataracts, Hx Contacts or Glasses - GLASSES- READING Psychiatric History: Reports: Hx Depression - Cancer History Cancer Type, Location and Year: basal cell carcinoma-nose - Surgical History Surgery Procedure, Year, and Place: appe-1947, miscarriages wtih D&c. pacer- 2006 AND 2013. tonsils AND ADENOIDECTOMY-1946. carotid endarterectomy- BILATERAL. [place]. ADHESIONS-1979. BILATERAL CATARACTS-2006 Hx Anesthesia Reactions: No Infectious Disease History: No Infectious Disease History: Reports: History Other Infectious Disease - guillan barre - 2002 Denies: Hx Clostridium Difficile, Hx Hepatitis, Hx Human Immunodeficiency Virus (HIV), Hx of Known/Suspected MRSA, Hx Shingles, Hx Tuberculosis, Traveled Outside the [place] in Last 30 Days - Family History Known Family History: Positive: Cardiac Disease - CAD, [place] - Social History Alcohol Use: None Hx Substance Use: No Substance Use Type: Reports: None Hx Tobacco Use: Yes Smoking Status (MU): Former Smoker Amount Used/How Often: 3/4 PPD X 20 YEARS Have You Smoked in the Last Year: No Review of Systems Negative: Fever Positive: Arthralgia - Bilateral knee pain, Other - Right thigh pain; NEGATIVE: Hip and neck pain Negative: Headache All Other Systems Reviewed And Are Negative: Yes Physical Exam - Summary Physical Exam Summary: VITAL SIGNS: Reviewed. GENERAL: ~Patient is a well-developed and nourished female who is lying comfortable in the stretcher. ~Patient is not in any acute respiratory distress. HEAD AND FACE: Slight bruising in the left orbital areas. No hematomas or skull depressions. No sinus tenderness. EYES: PERRLA, EOMI x 2, No injected conjunctiva, no nystagmus. EARS: Hearing grossly intact. Ear canals and tympanic membranes are within normal limits. MOUTH: Oropharynx within normal limits. NECK: Supple, trachea is midline, no adenopathy, no JVD, no carotid bruit, no c- spine tenderness, neck with full ROM. The C-spine was clinically cleared. CHEST: Symmetric, no tenderness at palpation LUNGS: Clear to auscultation bilaterally. No wheezing or crackles. CVS: Regular rate and rhythm, S1 and S2 present, no murmurs or gallops appreciated. ABDOMEN: Soft, non-tender. No signs of distention. No rebound no guarding, and no masses palpated. Bowel sounds are normal. EXTREMITIES: Pain in the right and left knees with decreased ROM bilaterally. Pain is the right thigh. No edema, no cyanosis or clubbing. NEURO: Alert and oriented x 3. No acute neurological deficits. Speech is normal and follows commands. SKIN: Dry and warm GCS: 15 Triage Information Reviewed: Yes Vital Signs On Initial Exam: Initial Vitals Temp Pulse Resp BP Pulse Ox 98.5 F 71 18 172/61 94 03/17/18 17:10 03/17/18 17:10 03/17/18 17:10 03/17/18 17:10 03/17/18 17:10 Vital Signs Reviewed: Yes Diagnostics - Vital Signs Vital Signs Temp Pulse Resp BP Pulse Ox 03/17/18 17:29 79 90 03/17/18 17:10 98.5 F 71 18 172/61 94 - Laboratory Lab Statement: Any lab studies that have been ordered have been reviewed, and results considered in the medical decision making process. - Radiology Bilateral Knee XR Xray Interpretation: No Acute Changes - Negative for fracture. Diffuse mild soft tissue swelling of both knees. ED physician reviewed this radiology report. Radiology Interpretation Completed By: Radiologist Femur XR Xray Interpretation: No Acute Changes - Negative for fracture or articular malalignment. Peripheral vascular calcifications. Diffuse skeletal muscle atrophy. No suspicious soft tissue contour abnormality. ED physician reviewed this radiology report. Radiology Interpretation Completed By: Radiologist - CT Maxillofacial CT CT Interpretation: No Acute Changes - No evidence for maxillofacial fracture. Mild LEFT para midline supraorbital soft tissue swelling. Negative for soft tissue plane loculated hematoma or abnormality of the post septal orbits. ED physician reviewed this radiology report. CT Interpretation Completed By: Radiologist Brain CT CT Interpretation: No Acute Changes - 1. No evidence for traumatic brain injury or acute intracranial process. 2. Involutional change and stigmata of chronic small vessel ischemic disease. ED physician reviewed this radiology report. CT Interpretation Completed By: Radiologist - EKG 6348 Cardiac Rate: NL - 70 bpm EKG Rhythm: Atrial Fibrillation - A Fib/flutter EKG Interpretation: A fib/flutter at 70 bpm Re-Evaluation - Re-Evaluation First Eval Re-Evaluation Time: 20:39 Change: Improved Comment: Pt is doing well. Discussed results and D/C plan. Lower Extremity Course/Dx - Course Assessment/Plan: This patient is a 77-year-old female who presents to the emergency room with chief complaint of an accidental fall. She reports that she lost her balance and fell. She denies any headache, denies any neck pain. She is only complaining of bilateral knee pain and right femur pain. Femur x- ray impression: Negative for fracture or articular malalignment. Bilateral knee x-ray impression negative for fracture. Diffuse mild soft tissue swelling of both knees. Brain CT impression: No evidence of traumatic brain injury or acute intracranial process. Maxillofacial CT impression: No evidence for maxillofacial fracture. In the ED course the patient requested Tylenol. Patient medication list the patient is allergic to Tylenol. However she reports that she is only allergic to the generic Tylenol. The patient was given Tylenol 650 mg and her pains have improved. He declined any other pain medications. I discussed all the findings and test results with the patient. Patient was instructed to return to the emergency room immediately if any of the symptoms return or worsens. Plan of care was discussed with the patient and understands and agrees. All questions were answered at patient satisfaction. There were no further complaints or concerns. Lung exam before discharge: CTA B /L. Good air exchange. No wheezing or crackles heard. CVS: S1 and S2 present. No murmurs appreciated. Patient is alert and oriented x 3. Patient is hemodynamically stable. Patient will be discharged home with follow up PCP in the next 2-3 days - Diagnoses Provider Diagnoses: Facial contusion, Knee pain, acute Discharge - Sign-Out/Discharge Documenting (check all that apply): Discharge/Admit/Transfer - Discharge - Discharge Plan Condition: Stable Disposition: HOME Patient Education Materials: Contusion in Adults (ED), Knee Pain (ED) Referrals: Clarke Cohen MD [Primary Care Provider] - 3 Days Additional Instructions: RETURN TO ED FOR ANY NEW OR WORSENING SYMPTOMS. The documentation as recorded by the Josue esparza Rebecca accurately reflects the service I personally performed and the decisions made by , Jose Angel Chung MD.
== END 2018-03-17 20:50 | disposition home or self-care (01) ==
LOC: ED 16:50
DX: S00.83XA Contusion of other part of head, initial encounter (principal); M25.562 Pain in left knee; M25.561 Pain in right knee; Z79.01 Long term (current) use of anticoagulants; E11.9 Type 2 diabetes mellitus without complications; Z79.84 Long term (current) use of oral hypoglycemic drugs; Z87.891 Personal history of nicotine dependence; W19.XXXA Unspecified fall, initial encounter; Y92.9 Unspecified place or not applicable
CPT/HCPCS: 70450; 70486; 93005; 99282; A9270-GY

== ENCOUNTER 2018-07-03 14:46 | Emergency (ER) | payer MEDICARE, BC ==
--- OUTSIDE RECORDS SUMMARY | 2018-07-03 15:24 | XMS REPORT ---
:1940 External Reference #:[id number] Author Organization [facility] Address 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 Okay to take Brand name Tylenol 06/07/2013 Niacin flushing active 12/23/2015 Valium active blurred vision 12/23/2015 Benadryl active blurred vision 04/18/2018 Praluent numbness in legs, active Moderate falls 03/05/2004 NKDA inactive Medications Medication Date Status Form Strength Qnty SIG Indications Ordering Provider Irbesartan 05/30 Active Tablets 75mg 90tab 1 by mouth s every day Tamiko Hidalgo M.D. Crestor 04/20 Active Tablets 5mg 24tab 1 by mouth s twice F. weekly Yasmin Hidalgo Spironolactone 07/22 Active Tablets 25mg 30tab 1 by mouth I10 Shanna S. /2016 s every day Karl Lozano Diltiazem CD 07/13 Active Caps ER 180mg 180ca 2 by mouth 24HR ps every day Tamiko Hidalgo M.D. Jobst Opaque 03/06 Active Misc as Above 3unit apply daily I10 Danny 20-30MMHG/Knee /2014 s as directed FDuke High/Closed Celia Hidalgo/Sonia Hoffman Nitrostat 09/11 Active Tablets 0.4mg 25tab one sl Sub s q5min up to F. 3 doses prn Yasmin Hidalgo Coumadin 02/23 Active Tablets 2.5mg 30tab Use as s Directed Tamiko (managed by BUD Hidalgo M.D. Oxybutynin Active Tablets 5mg 90tab 1/2 po bid Unknown Chloride / s Vitamin B-12 Active Tablets 500mcg 3 tabs by Unknown / mouth daily Fish Oil Active Capsules 1000mg 1 cap po Unknown / bid Levothyroxine Active Tablets 125mcg 1 by mouth Unknown Sodium 0000 alternating day's with 137 mcg Levothyroxine Active Tablets 137mcg 1 by mouth Unknown Sodium 0000 alternating days with 125 mcg's Plavix Active Tablets 75mg 1 by mouth Unknown every day Glipizide Active Tablets 5mg 1 by mouth Unknown daily Famotidine Active Tablets 40mg 1 by mouth Unknown every day Vitamin D Active Tablets 1000Unit once a day Unknown (Cholecalciferol) Metoprolol Active Tablets 50mg 1 by mouth Unknown Succinate ER ER 24HR twice a day Metformin HCL Active Tablets 850mg 1 by mouth Unknown twice a day Hydrochlorothiazid Active Tablets 1 by mouth Unknown every day or as needed Creon Active Caps 96275Getg take 1 cap Part by mouth with the first bite of each meal Diovan 01/26 Hx Tablets 40mg 90tab 2 by mouth I10 Shanna Mijares. s every day Blake, - N.P. 05/30 Praluent 11/07 Hx Solution 150mg/ml 2ml 1 injection Pen-Injec sc every 2 F. - t weeks pt Gwen, 04/18 stated only . recived 75mg intead of 150mg Praluent 08/24 Hx Solution 75mg/ml 4ml 1 injection Pen-Injec sc every 2 F. - t weeks Gwen 11/07.D. Demadex 07/13 Hx Tablets 10mg 30tab 1 tablet s twice /week F. - prn Gwen 06/15 M.D. Sertraline HCL 07/12 Hx Tablets 25mg 2 by mouth every day - 06/15 Pantoprazole 06/10 Hx Tablets 40mg 30tab 1 by mouth Danny Partida DR mijares daily in F. - the morning Gwen 07/21 M.D. Livalo 09/30 Hx Tablets 1mg 45tab 1 tab by E78.0 Danny s mouth every F. - other day Gwen 05/31 M.D. Protonix 08/22 Hx Tablets 40mg 30tab [address] mijares every day F. - Gwen, 08/09.D. Pravachol 03/06 Hx Tablets 10mg 90tab 1 by mouth E78.0 s every day F. - Katieusecesilia, 09/30 M.D. Demadex 03/06 Hx Tablets 10mg 30tab 1 by mouth 782.3 s three times F. - a week as Gwen, 07/12 needed M.D. Ramipril 06/10 Hx Capsules 2.5mg 200ca 1 po qd ps F. - Gwen, 03/20 M.D. Pravachol 06/08 Hx Tablets 10mg 90tab 1 by mouth s every day F. - Gwen, 03/05 M.D. Meclizine HCL 04/05 Hx Tablets 12.5mg 12tab tid prn s Ordering - Provider 08/08 Niaspan 01/15 Hx Tablets 500mg 30tab 1tab pm ER s F. - Gwen, 06/07 M.D. Zetia 09/04 Hx Tablets 10mg 90tab 1 po qd s F. - Gwen, 08/27 M.D. Crestor 05/10 Hx Tablets 5mg 90tab 1 po qd s F. - Gwen, 08/31 M.D. Lipitor 09/30 Hx Tablets 10mg 90tab 1 po qhs s F. - Gwen, 05/10 M.D. Zocor 08/04 Hx Tablets 5mg 30tab 1 po hs s F. - Gwen, 09/30 M.D. Co Q-10 Maximum 07/31 Hx Capsules 400mg 30cap s F. - Gwen, 02/09 M.D. Vit D 04/24 Hx 400U 2 tablet po daily F. - dinner time Gwen, 05/31 M.D. Calcium-Vitamin D 04/24 Hx Tablets 1200 1 po qd . - Gwen, 04/05 M.D. /2012 Actos 04/24 Hx Tablets 15mg 30tab 1 po qd s F. - Katieuser, 05/28 M.D. Synthroid 04/24 Hx Tablets 125mcg 90tab 1 po qd s . - Katiemarcelina, 03/05 M.D. /2014 Vytorin 04/24 Hx Tablets 10-80mg 90tab 1/2 po qhs s F. Carlita Hidalgo, 07/21 M.D. /2009 Diltiazem CD 01/24 Hx Caps ER 180mg 180ca 2 tabs po 24HR ps daily . Carlita Hidalgo, 05/31 M.D. /2016 Fish Oil 01/24 Hx Capsules 1200 1 PO bid . Carlita Hidalgo, 05/28 M.D. Metformin HCL 01/24 Hx Tablets 850mg 60tab 1 PO tid s Duke Hidalgo, 06/15 M.D. /2017 Glipizide ER 01/24 Hx Tablets 5mg 1 PO qam ER 24HR . Gwen, 08/28 M.D. Cardizem CD 07/26 Hx Caps ER 360mg 100ca 1 po qd 24HR ps F. - Gwen, 01/24 M.D. Vytorin 07/03 Hx Tablets 10-80mg 90tab 1 PO qd s . - Gwen, 04/24 M.D. Cardizem CD 06/28 Hx Caps ER 120mg 3 PO qd 24HR . - Katieuser, 07/26 M.D. Cardizem CD 06/22 Hx Caps ER 240mg 1 PO qd 24HR . - Gwen, 06/22 M.D. /2006 KCL 06/22 Hx 20Meq 1 tab po qd . Carlita Hidalgo, 08/15 M.D. Trazodone HCL 06/22 Hx Tablets 100mg 1 PO qd Tamiko Hidalgo, 07/21 M.D. Vytorin 06/22 Hx Tablets 10-40mg 90tab 1 PO qd dyllan Hidalgo, 07/03 M.D. Fish Oil 06/22 Hx Capsules 1000mg 1 PO qd Tamiko Hidalgo, 01/24 M.D. Calcium,MG,Zinc 06/22 Hx qd Tamiko Hidalgo, 07/21 M.D. Co Q10 06/22 Hx qd Tamiko Hidalgo, 07/21 M.D. Cardizem 06/22 Hx Tablets 120mg 270ta 3 po qd lori Hidalgo, 06/28 M.D. Crestor 05/24 Hx Tablets 20mg 90tab 1 po qd dyllan Hidalgo, 05/30 M.D. Zetia 05/24 Hx Tablets 10mg 90tab 1 PO qd dyllan Hidalgo, 06/22 M.D. Cardizem CD 04/21 Hx Caps ER 120mg 90cap 1 po qd 24HR dyllan Hidalgo, 06/22 M.D. Cardizem 03/22 Hx Tablets 30mg 60tab 1 PO bid dyllan Hidalgo, 04/21 M.D. Melatonen 03/22 Hx 5mg one qd Tamiko Hidalgo, 06/22 M.D. Vytorin 02/28 Hx Tablets 10-80mg 90tab 1 tablet po s kayden Hidalgo, 05/24 M.D. Omeprazole 12/21 Hx Capsules 20mg [address] Tamiko Hidalgo, 06/22 M.D. Metformin HCL 12/21 Hx Tablets 1000mg 1 po bid aTmiko Hidalgo, 01/24.D. Nitro-Dur 12/21 Hx Patches 0.2mg/HR 90uni 1 patch qd 24HR ts on in the F. - am, off in , 06/10 the pm M.D. /2016 Vytorin 10/05 Hx Tablets 10mg;40 90tab 1 po qd mg s . - Mauser, 02/28 M.D. Tricor 10/05 Hx Tablets 145mg 90tab 1 po qd s . - Mauser, 02/09 M.D. Fiber 06/07 Hx three in Am . - user, 04/05 M.D. /2012 Metformin 03/24 Hx Tablets 500mg 60tab 1 PO bid s . - user, 12/21 M.D. /2006 Vytorin 01/28 Hx Tablets 10mg;80 1 po qd mg . - , 10/05.D. Nitrodisc 09/22 Hx Patches 0.2mg/Marin 90uni On In Am r ts Off In PM . , 12/21 M.D. Vytorin 09/21 Hx Tablets 10mg;40 30tab 1 po qd mg s F. - Mauser, 01/28 M.D. Altace 07/16 Hx Capsules 2.5mg 30cap 1 PO qd s F. - Mauser, 07/21 M.D. Digoxin 07/16 Hx Tablets 0.125mg 30tab 1/2 po qd s F. - Mauser, 05/31 M.D. Digoxin 07/09 Hx Tablets 250mcg 30tab 1/2 po qd s F. - Mauser, 07/16 M.D. Tenormin 07/09 Hx Tablets 50mg 135ta 1/2 po qam bs and 1 qpm . user, 06/01 M.D. Synthroid 09/15 Hx Tablets 137mcg 1 po qd F. - Mauser, 04/24 M.D. /2008 Digoxin 07/02 Hx Tablets 250mcg 45tab 1 and 10/25 s tabs po qd . - Mauser, 07/09 M.D. Digoxin 06/25 Hx Tablets 250mcg 90tab 1 po qd s F. - Gwen, 07/02 M.D. Tenormin 06/17 Hx Tablets 50mg 180ta 2 po qd bs . - Gwen, 07/09 M.D. kcl 06/17 Hx Tablets 20Meq 90tab 1 po qd s . Carlita Hidalgo, 06/22 2 qd M.D. /2006 For 06/17 And 06/18 And Then One PO qd. Nitrostat 06/17 Hx Tablets 0.4mg 25tab One SL s Q5min Up To F. - 3 Doses prn Gwen, 05/28 M.D. /2010 Plavix 06/16 Hx Tablets 75mg 30tab 1 po qd s . Carlita Hidalgo, 06/17 M.D. Aspirin 04/19 Hx Chewtabs 81mg 30uni 1 PO qd ts . Carlita Hidalgo, 02/09 M.D. /2011 Cardizem 04/08 Hx Tablets 120mg 1 po qd. . - Gwen, 07/02 M.D. Zetia 04/08 Hx Tablets 10mg 90tab 1 po qd s F. - Katieusecesilia, 09/22 M.D. Cardizem 04/07 Hx Tablets 160 1 po qd. F. - Mauser, 04/08 M.D. Lasix 04/07 Hx Tablets 20mg 30tab 1 PO qd s F. - Katieuser, 06/22 M.D. Lexapro 04/07 Hx Tablets 10mg 30tab 1 po qd s FDuke Hidalgo, 12/21 M.D. /2006 Tenormin 04/08 Hx Tablets 50mg 30tab 1 po qd s F. - Mauser, 06/17 M.D. Dyazide 04/08 Hx Capsules 25mg;37.5 1 po qd mg F. - Mauser, 06/03.D. Diovan 03/31 Hx Tablets 80mg 90tab 1 po qd s F. - Mauser, 06/03 M.D. /2004 Vitamin 03/25 Hx one qd F. - Mauser, 06/22 M.D. Cardizem CD 02/25 Hx Capsules 180mg 1 po qd F. - Mauser, 04/08 M.D. Tenormin 02/23 Hx Tablets 50mg 30tab 1 po bid s F. - Mauser, 04/08 M.D. Dyazide 02/23 Hx Capsules 25mg;37.5 30cap 2 po qd mg s F. - Mauser, 04/08.D. Synthroid 02/23 Hx Tablets 150mcg 30tab 1 po qd s F. - Mauser, 07/16 M.D. KCL 02/23 Hx Capsules 20Meq 1 po qam F. - Mauser, 06/17 M.D. Cardizem CD 02/23 Hx Capsules 120mg 30cap 1 po qd s F. - Mauser, 02/25 M.D. Altace 02/23 Hx Capsules 5mg 30cap 1 po qd s F. - Mauser, 03/05 M.D. Lipitor 02/23 Hx Tablets 80mg 90tab 1 po qd s F. - Mauser, 09/22 M.D. Lasix 00 Hx Tablets 40mg 1 PO qd prn Unknown /0000 wt gain of - 3 lbs or 01/08 more increased am edema. Glipizide ER 0000 Hx Tablets 5mg 2 po qd Unknown /0000 ER 24HR - 04/24 Pepcid ac 00/00 Hx Tablets 10mg 1 PO prn Unknown /0000 - 07/21 Co Enzyme Q-10 Hx Capsules 400mg 1 po qd Unknown /0000 - 02/09 Ramipril /00 Hx Capsules 2.5mg 90cap 1 po qd Danny /0000 s Tamiko Hidalgo, 06/10 M.D. Prilosec Hx Capsules 20mg 60cap 1 po qd Unknown /0000 DR mijares - 09/11 Garlic Hx Capsules 500mg 1 [...] every day - (Hold as of 08/1407/22/17) /2016 Ramipril 0000 Hx Capsules 2.5mg 90cap 1 tab by Danny /0000 s mouth daily Tamiko Hidalgo, 06/01.D. Lovenox Hx as directed Unknown /0000 - 01/03 Hydrocodone-Acetam 00/00 Hx Tablets 5-325mg 1 by mouth Unknown inophen /0000 every - 4hours prn. 05/31 Diltiazem HCL 0000 Hx Tablets 90mg 1 by mouth Unknown /0000 three times - daily 07/13 Metoprolol 0000 Hx Tablets 50mg 1 by mouth Unknown Tartrate /0000 twice a day - 07/22 Ramipril 0000 Hx Capsules 2.5mg 1 by mouth Unknown /0000 every day - 01/26 Medications Administered in Office Medication Date Status Form Strength Qnty SIG Indications Ordering Provider Inj, Administered Injection Ab S. Regadenoson, 017 Preciado, DO 0.1 MG FACC Technetium TC Administered Injection Ab S. 99M 017 Preciado, DO Tetrofosmin, FACC Per Unit Dose Up To 40 Millicuries Vital Signs Date Vital Result Comment 06/16/2018 Height 64 inches 5'4" Weight 211.25 lb with shoes Heart Rate 68 /min BP Systolic Sitting 128 mmHg lue lg cuff BP Diastolic Sitting 62 mmHg lue lg cuff BP Systolic Standing 124 mmHg BP Diastolic Standing 70 mmHg Respiratory Rate 18 /min BMI (Body Mass Index) 36.3 kg/m2 Ejection Fraction 60-65% 05/15/2018 echo 03/02/2018 Height 64 inches 5'4" Weight 214.50 [...] Test Date Test Result H/L Range Note Lipid Panel - [facility] 06/16/2018 Creatine Kinase(CK) <pending> Laboratory test 06/01/2017 TSH (Thyroid Stim 1.43 mcIU/mL 0.34-5.60 finding Horm) CRP High Sensitivity 4.34 mg/L 1 Erythrocyte Sed Rate 31 mm/Hr 0-40 Comp Metabolic Panel 06/01/2017 Sodium 136 mmol/L [...] 124.3 >60 2 Laboratory test finding 06/01/2017 B-Type Natriuretic 200 pg/mL High 3 Peptide BNP CBC Auto Diff 06/01/2017 White Blood Count [...] Cells % 0.1 Laboratory test finding 06/01/2017 Troponin-I (TnI) 0.01 ng/mL <0.04 Istat BUN/Crea/Egfr/V Mainct 05/18/2017 Poc Bun Mainct 20 mg/dL High 9-18 Poc Crea Mainct 0.7 mg/dL 0.6-0.9 GFR Non- MCT 80.9 >60 GFR Mainct 104.1 >60 4 Basic Metabolic Panel 12/19/2015 Sodium 134 mmol/L 133-145 Potassium 4.1 mmol/L 3.5-5.0 Chloride 96 mmol/L Low 101-111 Co2 Carbon Dioxide 32 mmol/L 22-32 Anion Gap 6 mmol/L 2-11 Glucose 169 mg/dL High 70-100 Blood Urea Nitrogen 17 mg/dL 6-24 Creatinine 0.70 mg/dL 0.51-0.95 BUN/Creatinine Ratio 24.3 High 8-20 Calcium 9.4 mg/dL 8.6-10.3 Egfr Non- 81.4 >60 Egfr 104.6 >60 5 CBC Auto Diff 12/19/2015 White Blood Count [...] Blood Cells % 0.2 Basic Metabolic Panel 12/18/2015 Sodium 135 mmol/L 133-145 Potassium 4.2 mmol/L 3.5-5.0 Chloride 96 mmol/L Low 101-111 Co2 Carbon Dioxide 31 mmol/L 22-32 Anion Gap 8 mmol/L 2-11 Glucose 155 mg/dL High 70-100 Blood Urea Nitrogen 18 mg/dL 6-24 Creatinine 0.68 mg/dL 0.51-0.95 BUN/Creatinine Ratio 26.5 High 8-20 Calcium 9.5 mg/dL 8.6-10.3 Egfr Non- 84.1 >60 Egfr 108.2 >60 6 Laboratory test finding 11/05/2015 Inr/Protime 1.19 High 0.89-1.11 7, 8 Partial Thrombo Time PTT 39.2 seconds High 26.0-36.3 7, 9 Basic Metabolic Panel 11/05/2015 Sodium 137 mmol/L [...] 91.9 >60 7 Egfr 118.2 >60 7, 10 Inr/Protime 11/03/2015 Inr 1.68 High [...] Pathology 07/02/2014 S RUN DATE: 07/03/ <SEE NOTE> 12 Basic Metabolic Panel 06/25/2014 Sodium 136 mmol/L 133-145 Potassium 4.1 mmol/L 3.7-5.6 Chloride 99 mmol/L Low 101-111 Co2 Carbon Dioxide 30 mmol/L 22-32 Anion Gap 7 mmol/L 2-11 Glucose 99 mg/dL 70-100 Blood Urea Nitrogen 20 mg/dL 6-24 Creatinine 0.68 mg/dL 0.51-0.95 BUN/Creatinine Ratio 29.4 High 8-20 Calcium 9.2 mg/dL 8.6-10.3 Egfr Non- 84.4 >60 Egfr 108.5 >60 13 Lipid Profile (Trig/Chol/HDL) 04/17/2013 Triglycerides 208 mg/dL High 40- 200 Cholesterol 421 mg/dL High Less than 200 HDL Cholesterol 40 mg/dL 40-60 14 Cholesterol/HDL Ratio 10.5 Average High 1-4.44 LDL Cholesterol 339.4 High Less Than 100 15 Comp Metabolic Panel 04/17/2013 Sodium 140 mmol/L [...] Egfr Non- 120.9 >60 Egfr 155.5 >60 16 Lipid Panel - [facility] 04/17/2013 Creatine Kinase 34 U/L 0-200 17 Lipid Profile (Trig/Chol/HDL) 01/08/2013 Triglycerides 226 mg/dL High 40- 200 Cholesterol 376 mg/dL High Less than 200 HDL Cholesterol 47 mg/dL 40-60 18 Cholesterol/HDL Ratio 8.0 Average High 1-4.44 LDL Cholesterol 283.8 mg/dL High Less Than 100 19 Comp Metabolic Panel 01/08/2013 Sodium 139 mmol/L [...] Egfr Non- 120.9 >60 Egfr 155.5 >60 20 Lipid Panel - [facility] 01/08/2013 Creatine Kinase 26 U/L 0-200 21 Lipid Profile (Trig/Chol/HDL) 08/28/2012 Triglycerides 232 mg/dL High 40- 200 Cholesterol 463 mg/dL High Less than 200 22 HDL Cholesterol 42 mg/dL 40-60 23 Cholesterol/HDL Ratio 11.0 AVERAGE High 1-4.44 LDL Cholesterol 374.6 mg/dL High Less Than 100 Comp Metabolic Panel 08/28/2012 Sodium 134 mmol/L [...] 1.1 1-3 Total Bilirubin 1.0 mg/dL 0.1-1.0 24 Alkaline Phosphatase 76 U/L 30-110 Alt 22 U/L 14-54 Ast 22 U/L 12-42 Egfr Non- 98.0 >60 Egfr 126.0 >60 25 Lipid Panel - [facility] 08/28/2012 Creatine Kinase 22 U/L 0-200 26 Lipid Panel - [facility] 05/08/2012 CPK (Creatine Kinase) 34 U/L 0-170 27 Comp Metabolic Panel 05/08/2012 Sodium 138 mmol/L [...] eGFR 126.4 > 60 27, 30 Lipid Profile (Trig/Chol/HDL) 05/08/2012 Triglyceride 219 mg/dL High 40- 200 27 Cholesterol 374 mg/dL High Less Than 200 27, 31 High Density Lipoprotein 43 mg/dL 40-60 27, 32 Cholesterol/HDL Ratio 8.70 AVERAGE High 1-4.44 27 Low Density Lipoprotein 287 mg/dL High Less Than 100 27, 33 Lipid Panel - [facility] 09/20/2011 CPK (Creatine Kinase) 62 U/L 0-170 [...] 237 mg/dL High Less Than 100 39 Basic Metabolic Panel 01/16/2010 Sodium 137 mmol/L [...] 40 eGFR 79.6 > 60 40, 44 CBC With Manual Diff 01/16/2010 White Blood [...] Neutrophil Count 5.9 40 Anisocytosis SLIGHT 40 1 Low risk: <1.00 Average risk: 1.00-3.00 High risk: >3.00 2 Because ethnic data is not always [...] 5 Kidney failure <15 (or dialysis) 3 >100 to <200 pg/mL: likely compensated congestive heart failure (CHF) 200 to 400 pg/mL: likely moderate CHF >400 pg/mL: likely moderate to severe CHF 4 Because ethnic data is not always [...] dialysis) 7 CALL RESULTS TO 4591 8 CALL RESULTS TO 4591 9 CALL RESULTS TO 4591 10 Because ethnic data is not always readily [...] 15-29 5 Kidney failure <15 (or dialysis) 11 Because ethnic data is not always [...] <15 (or dialysis) 12 RUN DATE: 07/03/14 [facility] LAB LIVE PAGE 1 RUN TIME: [address] [place] [id number] Specimen Inquiry Name: MAGAN ASHLEY : [address]: Jose Alberto Wylie MD Acct: [id number] Unit: [id number] AGE: 74 Location: [facility] Re07/02/14 SEX: F Status: REG REF SPEC: [id number] JEANETTE: 07/02/14- SUBM DR: Jose Alberto Wylie MD REQ: [id number] RECD: 07/02/141048 STATUS: SOUT _ ORDERED: LEVEL I FINAL DIAGNOSIS Pacemaker generator: Foreign body (pacemaker generator) (Gross diagnosis). PRE-OPERATIVE DIAGNOSIS Atrial fibrillation, bradycardia. GROSS DESCRIPTION The specimen is received in formalin labeled Magangallo Ashley and consists of a 4.6 x 4.4 x 0.9 cm. silver metallic medical assistant float. The following inscription is identified: [employer] ADAPTA ADDR01 DDDR SN [id number]. Per established hospital medical staff protocol no tissue is submitted. Gross only. Signed (signature on file) Fady Prado MD 1056 END OF REPORT * ML=Testing performed at Main Lab DEPARTMENT OF PATHOLOGY, [address] [place] [address] Fady Prado M.D. Director [facility] # [id number] 13 Because ethnic data is not always [...] 5 Kidney failure <15 (or dialysis) 14 HDL Interpretation: Undesirable: High Risk: Less than 40 mg/dL Desirable: Low Risk: Greater than 60 mg/dL 15 LDL Interpretation: Low Risk Optimal Level: LDL Less than 100 mg/dL Near or Above Optimal: LDL 100-129 mg/dL Borderline High Risk: LDL 130-159 mg/dL High Risk: LDL 160-189 mg/dL Very High Risk: LDL Greater than 189 mg/dL 16 Because ethnic data is not always readily [...] 15-29 5 Kidney failure <15 (or dialysis) 17 FASTING 18 HDL Interpretation: Undesirable: High Risk: Less than 40 MG/DL Desirable: Low Risk: Greater than 60 MG/DL 19 LDL Interpretation: Low Risk Optimal Level: LDL Less than 100 MG/DL Near or Above Optimal: LDL 100-129 MG/DL Borderline High Risk: LDL 130-159 MG/DL High Risk: LDL 160-189 MG/DL Very High Risk: LDL Greater than 189 MG/DL 20 Because ethnic data is not always readily [...] 15-29 5 Kidney failure <15 (or dialysis) 21 FASTING 22 Desirable: Less than 200 MG/DL Borderline-High Risk: 200-239 MG/DL High-Risk: 240 MG/DL and over 23 HDL Interpretation: Undesirable: High Risk: Less than 40 MG/DL Desirable: Low Risk: Greater than 60 MG/DL 24 A metabolite of Naproxen, O-desmethylnaproxen, has been shown to interfere with the Jendrassik-Cuthbert method for measuring total bilirubin. Samples from patients who have taken Naproxen have shown spurious elevation in total bilirubin levels. 25 Because ethnic data is not always readily [...] 15-29 5 Kidney failure <15 (or dialysis) 26 FASTING 27 FASTING 28 Anion gap measurement may [...] change was based on recommendations from the [employer] [place] [employer]. 43 Please note change in [...] dialysis) Procedures Date CPT Code Description Status 06/16/2018 27521 EKG Tracing & Interpretation Completed 05/15/2018 28150 ECHO Transthoracic, Real-Time 2D With Doppler And Color Completed Flow 05/15/2018 56869 ECHO Transthoracic, Real-Time 2D With Doppler And Color Completed Flow 02/27/2018 01155 Pace Maker Eval W/Iterative Adjustment Single Lead Completed 02/27/2018 21763 Pace Maker Eval W/Iterative Adjustment Single Lead Completed 12/20/2017 88373 EKG Tracing & Interpretation Completed 08/25/2017 38522 Pace Maker Eval W/Iterative Adjustment Single Lead Completed 07/13/2017 60531 EKG Tracing & Interpretation Completed 06/09/2017 08529 Stress Test Completed 06/09/2017 79896 Myocardial Perfusion Imaging Tomographic (Spect) Completed Multiple Studies 06/08/2017 17200 ECHO Transthoracic, Real-Time 2D With Doppler And Color Completed Flow 06/01/2017 66346 EKG Tracing & Interpretation Completed 03/15/2017 43094 Pace Maker Eval W/Iterative Adjustment Single Lead Completed 01/18/2017 04487 ECHO Transthorasic Realtime 2D W Doppler & Color Flow Completed Hosp 08/30/2016 44142 ECHO Transthoracic, Real-Time 2D With Doppler And Color Completed Flow 08/24/2016 77635 Pace Maker Eval W/Iterative Adjustment Single Lead Completed 07/14/2016 74505 EKG Tracing & Interpretation Completed 03/16/2016 87042 Interrogation Device Eval In Person W/DR Completed Analysis,Single,Dual,Mul 12/19/2015 86924 Intravasc.Blood Flow-Ea.Addtl Ves Completed 12/19/2015 32163 Intravascular Blood Flow Velocity Completed 12/19/2015 45670 Cath PLMT&NJX L Ventriculog Img S&I Completed 12/01/2015 33727 EKG Tracing & Interpretation Completed 11/05/2015 49241 RT & lt Cath W/Injx HRT Art&L Ventr Img S&I Completed 11/05/2015 39494 Intravascular Ultrasnd-Ea Addtl Completed 11/05/2015 01345 Intravascular Ultrasound (Coron) Completed 09/12/2015 74590 ECHO Transthoracic, Real-Time 2D With Doppler And Color Completed Flow 09/12/2015 44871 EKG Tracing & Interpretation Completed 08/25/2015 58672 Pace Maker Eval W/Iterative Adjment Dual Lead Completed 08/22/2015 70204 Stress Test Supervsn W/Out I/R Completed 08/22/2015 67880 Treadmill Interp/Report Only Completed 07/03/2015 38868 EKG Tracing & Interpretation Completed 04/11/2015 48114 Color Flow Doppler/Interp & Reprt Completed 04/11/2015 69366 Pulse Wave/Continuous-Interp.RPT Completed 04/11/2015 02838 Echocardiography, Transesophageal, Real Time W/Image 2D Completed W/W/O M-M 03/20/2015 00364 ECHO Transthoracic, Real-Time 2D With Doppler And Color Completed Flow 03/06/2015 01803 EKG Tracing & Interpretation Completed 02/17/2015 09248 Interrogation Device Eval In Person W/DR Completed Analysis,Single,Dual,Mul 07/02/2014 60552 Removal With Replacement Dual Lead System Pulse Completed Generator 06/10/2014 91519 Interrogation Device Eval In Person W/DR Completed Analysis,Single,Dual,Mul 05/02/2014 64467 Interrogation Device Eval In Person W/DR Completed Analysis,Single,Dual,Mul 03/06/2014 90213 Interrogation Device Eval In Person W/DR Completed Analysis,Single,Dual,Mul 02/01/2014 23881 Interrogation Device Eval In Person W/DR Completed Analysis,Single,Dual,Mul 10/10/2013 31201 Interrogation Device Eval In Person W/DR Completed Analysis,Single,Dual,Mul 08/27/2013 46757 EKG Tracing & Interpretation Completed 06/07/2013 27734 ECHO Transthoracic, Real-Time 2D With Doppler And Color Completed Flow 04/09/2013 06865 Pace Maker Eval W/Iterative Adjment Dual Lead Completed 04/05/2013 32563 EKG Tracing & Interpretation Completed 10/02/2012 80497 Interrogation Device Eval In Person W/DR Completed Analysis,Single,Dual,Mul 09/11/2012 44711 EKG Tracing & Interpretation Completed 04/13/2012 78928 Interrogation Device Eval In Person W/DR Completed Analysis,Single,Dual,Mul 02/10/2012 22296 EKG Tracing & Interpretation Completed 09/03/2011 45557 Interrogation Device Eval In Person W/DR Completed Analysis,Single,Dual,Mul 07/08/2011 85364 ECHO Transthoracic, Real-Time 2D With Doppler And Color Completed Flow 05/28/2011 23846 EKG Tracing & Interpretation Completed 03/15/2011 39673 Pace Maker Eval W/Iterative Adjment Dual Lead Completed 08/13/2010 23641 Interrogation Device Eval In Person W/DR Completed Analysis,Single,Dual,Mul 07/21/2010 81902 EKG Tracing & Interpretation Completed 02/05/2010 55090 Interrogation Device Eval In Person W/DR Completed Analysis,Single,Dual,Mul 01/14/2010 96903 ECHO Transthoracic, Real-Time 2D With Doppler And Color Completed Flow 01/13/2010 21349 Stress ECHO Interpretation/Report Hospital Completed 01/13/2010 70486 Treadmill Interp/Report Only Completed 01/13/2010 45701 Stress Test Supervsn W/Out I/R Completed 08/07/2009 66962 Pace Maker Eval W/Iterative Adjment Dual Lead Completed 04/24/2009 03357 EKG Tracing & Interpretation Completed 02/06/2009 23360 Interrogation Device Eval In Person W/DR Completed Analysis,Single,Dual,Mul 08/28/2008 03018 EKG Tracing & Interpretation Completed 08/15/2008 28311 Pacemaker Check/Dual Katiana/Office Completed 08/15/2008 92995 Pacemaker Check/Dual Katiana/Office Completed 02/08/2008 27184 Pacemaker Check/Dual Katiana/Office Completed 02/08/2008 55577 Pacemaker Check/Dual Katiana/Office Completed 01/25/2008 15297 EKG Tracing & Interpretation Completed 08/10/2007 31894 Pacemaker Check/Dual Kat[place]/Office Completed 08/10/2007 69048 Pacemaker Check/Dual Kat[place]/Office Completed 07/26/2007 90020 EKG Tracing & Interpretation Completed 07/26/2007 45409 EKG Tracing & Interpretation Completed 06/22/2007 85055 EKG Tracing & Interpretation Completed 06/22/2007 51123 EKG Tracing & Interpretation Completed 04/21/2007 96118 EKG Tracing & Interpretation Completed 03/27/2007 04611 Color Doppler Completed 03/27/2007 59779 Color Doppler Completed 03/27/2007 51463 Pulse Doppler & Continuous Wave Completed 03/27/2007 07491 Echocardiogram Completed 03/27/2007 22858 Echocardiogram Completed 03/22/2007 94132 EKG Tracing & Interpretation Completed 03/22/2007 02666 EKG Tracing & Interpretation Completed 01/11/2007 39268 Holter Monitor Completed 12/21/2006 84611 EKG Tracing & Interpretation Completed 06/08/2006 47246 EKG Tracing & Interpretation Completed 03/25/2006 63441 EKG Tracing & Interpretation Completed 09/22/2005 27922 EKG Tracing & Interpretation Completed 07/21/2005 98333 Holter Monitor Completed 07/16/2005 90116 EKG Tracing & Interpretation Completed 07/09/2005 88743 EKG Tracing & Interpretation Completed 07/02/2005 82901 EKG Tracing & Interpretation Completed 06/25/2005 32490 EKG Tracing & Interpretation Completed 06/17/2005 35227 EKG Tracing & Interpretation Completed 06/03/2005 38459 EKG Tracing & Interpretation Completed 04/22/2005 79740 Echocardiogram Completed 04/22/2005 79800 Pulse Doppler & Continuous Wave Completed 04/22/2005 37763 Color Doppler Completed 04/20/2005 59074 ECHO/Stress Completed 04/20/2005 84321 Stress Test Completed 04/08/2005 43865 EKG Tracing & Interpretation Completed 05/21/2004 79009 EKG Tracing & Interpretation Completed 03/05/2004 24423 EKG Tracing & Interpretation Completed 02/20/2004 22545 Holter Monitor Interpretation Completed 02/14/2004 94862 Color Doppler Completed 02/14/2004 20046 Pulse Doppler & Continuous Wave Completed 02/14/2004 14327 Echocardiogram Completed 02/10/2004 18291 ECHO/Stress Completed 02/10/2004 12317 Stress Test Completed 02/10/2004 88024 IV Infusion For DX/Upt To 1 HR. Completed 02/10/2004 33952 Intro. Needle Or Intracath.,Vein Completed Encounters Type Date Location Provider CPT E/M Dx Office Visit 03/02/2018 11:00a [facility] Shanna Lozano, N.P. 45384 I49.5 I35.0 I10 Z95.0 I25.118 E78.5 Office Visit 01/26/2018 10:30a [facility] Shanna Lozano, 49848 I49.5 [place] N.P. I35.0 I10 Z95.0 I25.118 E78.5 I50.32 Office Visit 12/20/2017 1:20p [facility] Danny Hidalgo M.D. 28132 I49.5 I35.0 R06.00 Z95.0 I10 I50.32 I25.118 E78.5 Office Visit 08/15/2017 10:30a [facility] DAX Torres 95961 I10 I50.32 I35.0 I25.118 Office Visit 07/22/2017 10:30a [facility] DAX Torres 96092 I50.32 I10 I25.118 I35.0 E78.5 Office Visit 07/13/2017 1:10p [facility] Danny Hidalgo M.D. 54019 R07.9 I35.0 R94.31 I25.118 R06.02 I50.32 I10 Office Visit 06/01/2017 10:30a [facility] DAX Torres 43328 R07.9 I35.0 Z95.0 I25.118 R06.02 Office Visit 03/06/2017 9:56a [facility], Tiny Brewster, 71907 R07.1 Hospitalists M.DDuke I35.0 Z84.89 Office Visit 03/05/2017 9:56a [facility], Tiny Brewster, 18451 R07.1 Hospitalists MOmid I35.0 Z84.89 Office Visit 03/02/2017 2:30p [facility] Danny Hidalgo M.D. 56933 I21.4 I48.91 E11.9 I10 I35.0 I25.10 Office Visit 01/19/2017 12:40p [facility] Miguelchavo Jewell, 17786 I21.4 Assoc, DAX Hospitalists I48.91 E11.9 I10 Office Visit 01/18/2017 3:01p [facility] Jose Alberto Wylie, 21929 I25.10 [facility] MOmid Office Visit 01/18/2017 12:39p [facility], Miguel 26639 I21.4 Hospitalists DAX Jewell I48.91 E11.9 I10 Office Visit 01/17/2017 12:38p [facility], Demetria Mata, N.PDuke 44271 I21.4 Hospitalists E11.9 I48.91 I10 Office Visit 08/09/2016 3:00p [facility] DAX Torres 61278 I35.0 I10 R06.02 Z95.0 I48.2 R19.7 Office Visit 07/14/2016 1:20p [facility] Danny Hidalgo M.D. 68724 I35.0 I10 I48.2 I25.10 E78.0 Office Visit 02/25/2016 9:30a [facility] DAX Torres 90971WMV I35.0 I10 I48.2 I73.9 I25.10 Office Visit 01/05/2016 11:20a [facility] Joaquín Miles, 44275 R06.02 [place] [facility] [place] [facility] [place], FSCAI H53.2 Office Visit 12/19/2015 2:31p [facility] [address] H53.2 Office Visit 12/01/2015 10:40a [facility] Danny Morrison 44943 R06.02 Yasmin Hidalgo I35.0 I73.9 I10 I48.2 Office Visit 11/12/2015 11:20a [facility] Joaquín Miles, 18807 R06.02 [place] [facility] [place] [facility] [place], FSCAI I35.0 Office Visit 09/30/2015 2:00p [facility] DAX Torres 04431 I10 I65.23 I35.0 Z95.0 I48.2 E78.0 I25.10 R06.02 Office Visit 09/12/2015 2:20p [facility] Danny Hidalgo M.D. 40074 I48.2 I35.0 R07.9 I50.9 Office Visit 08/27/2015 11:00a [facility] DAX Torres 04721 I10 I48.2 I65.23 E78.0 Z95.0 I35.0 R06.02 Office Visit 08/22/2015 3:30p [facility] Danny Hidalgo M.D. 25014 I34.0 I10 E78.0 I35.0 I48.2 R07.9 I65.23 Office Visit 07/03/2015 2:40p [facility] Danny Hidalgo M.D. 34633 424.0 401.1 272.0 496 424.1 785.9 786.50 Office Visit 04/16/2015 10:30a [facility] DAX Torres 23673 424.1 V45.01 424.0 401.9 272.0 427.31 782.3 Office Visit 03/06/2015 1:40p [facility] Danny Hidalgo, 97241 427.31 M.D. 424.0 424.1 401.9 272.0 782.3 Office Visit 06/12/2014 10:00a [facility] 75629 427.31 [place] M.D. 427.81 V45.01 Office Visit 06/10/2014 11:40a [facility] Danny Hidalgo, 43117 427.31 M.D. 427.81 V45.01 424.0 414.01 424.1 401.9 Office Visit 08/27/2013 3:00p [facility] Danny Hidalgo M.D. 74513 424.0 427.31 427.81 Office Visit 04/05/2013 3:20p [facility] Danny Hidalgo 61654 427.81 M.D. 996.01 427.31 424.0 Office Visit 09/11/2012 2:40p [facility] Danny Hidalgo 69004 427.31 M.D. 427.81 414.01 786.50 Office Visit 02/10/2012 3:00p [facility] Danny Hidalgo 31120 427.31 M.D. 427.81 424.0 272.0 Office Visit 05/28/2011 2:20p [facility] Danny Hidalgo 93533 427.31 M.D. 427.81 414.01 424.0 Office Visit 07/21/2010 3:20p [facility] Danny Hidalgo 96152 427.81 M.D. 427.31 V45.01 414.01 Office Visit 01/13/2010 9:00a [facility] Danny Hidalgo 06885 414.01 M.D. 785.2 Office Visit 04/24/2009 3:20p [facility] Danny Hidalgo 58018 427.81 M.D. 424.0 427.31 272.0 V45.01 Office Visit 08/28/2008 3:20p [facility] Danny Hidalgo, 10931 427.81 M.D. V45.01 424.0 427.31 272.0 250.00 Office Visit 01/25/2008 3:40p [facility] Danny Hidalgo, 04515 427.31 M.D. 401.1 272.0 427.81 Office Visit 07/26/2007 3:20p [facility] Danny Hidalgo, 10645 427.31 M.D. 401.1 272.0 424.0 Office Visit 06/22/2007 3:20p [facility] Danny Hidalgo, 67788 414.01 M.D. 427.31 401.1 272.0 Office Visit 04/21/2007 2:20p [facility] Danny Hidalgo, 97390 414.01 M.D. 427.31 427.81 Office Visit 03/22/2007 3:40p [facility] Danny Hidalgo, 88907 414.01 M.D. 427.31 427.81 424.1 Office Visit 12/21/2006 3:00p [facility] Danny Hidalgo, 54272 427.31 M.D. 427.81 780.4 401.1 Office Visit 06/08/2006 2:00p [facility] Danny Hidalgo, 10085 414.01 M.D. 401.1 272.0 Office Visit 03/25/2006 3:40p [facility] Danny Hidalgo 50560 427.31 M.D. 414.01 272.0 Office Visit 09/22/2005 1:20p [facility] Danny Hidalgo M.D. 78910 413.9 414.01 427.31 Office Visit 07/16/2005 9:00a [facility] Danny Hidalgo M.D. 28745 413.9 414.01 427.31 Office Visit 07/09/2005 9:00a [facility] Danny Hidalgo 54252 427.31 M.D. 780.4 Office Visit 07/02/2005 8:40a [facility] Danny DulceDuke Hidalgo, 53946 414.01 M.D. 427.31 Office Visit 06/25/2005 8:40a [facility] Danny Hidalgo, 51087 786.50 M.D. 414.01 427.31 Office Visit 06/17/2005 9:00a [facility] Danny Hidalgo, 29525 786.50 M.D. 414.01 Office Visit 06/03/2005 2:20p [facility] Danny DulceDuke Hidalgo, 31876 786.50 M.D. 424.1 401.1 Office Visit 04/20/2005 2:00p [facility] Danny Hidalgo, 75857 794.31 M.D. 427.31 433.10 Office Visit 04/19/2005 9:40a [facility] Danny Hidalgo M.D. 62482 780.2 433.10 401.1 Office Visit 04/08/2005 2:30p [facility] Danny Hidalgo, 57457 427.31 M.D. 424.1 433.10 780.2 Office Visit 05/21/2004 3:00p [facility] Danny Hidalgo, 74512 786.59 M.D. 427.31 401.1 Office Visit 04/08/2004 3:00p [facility] Danny Hidalgo M.D. 17320 401.1 786.59 Office Visit 03/05/2004 9:40a [facility] Danny Hidalgo 33260 786.09 M.D. 401.1 780.4 Office Visit 02/10/2004 2:20p [facility] Danny Hidalgo, 93093 786.59 M.D. 427.31 785.2 786.05 Plan of Care 06/16/2018 - Shanna Lozano, N.P.I34.2 Nonrheumatic mitral (valve) stenosisRecommendations:IF you develop any dizziness, lightheadedness with new medicine HCTZ please call.I49.5 Sick sinus ndxosbsiX11.5 Hyperlipidemia, unspecifiedComments:Lipids improved 196Recommendations:Increase Crestor to 3 days a week.I25.118 [place]scl heart disease of upper [place] cor art w oth ang pctrsFollow up:SHAWNA Hidalgo 3 mo EKG
[2018-07-03 15:36] VITALS: BP 170/73
--- NOTE | 2018-07-03 15:54 | UC ---
Minor Trauma HPI - HPI Summary HPI Summary: This pt is a 78 y/o female presenting to [facility] c/o right arm and left hand pain x5 days s/p fall. Pt reports that 5 days ago she fell while getting ready to go to bed. Denies head strike or LOC. She states that she scraped her right side on a heater and AC. Today she c/o right elbow, right wrist, and right shoulder pain, as well as left wrist pain. Denies neck pain, head pain, collar bone pain. Pt has hx of previous injury to right hand. PMHx includes CAD, HTN, type 2 diabetes, hypothyroidism. - History of Current Complaint Chief Complaint: UCUpperExtremity Stated Complaint: ARM PAIN Time Seen by Provider: 07/03/18 15:43 Hx Obtained From: Patient Hx Last Menstrual Period: na Onset/Duration: Lasting Days, Still Present Onset Of Pain: Immediate Severity Currently: Severe Pain Intensity: 10 Pain Scale Used: 0-10 Numeric Mechanism Of Injury: Direct Blow, Fall From A Standing Position Aggravating Factor(s): Movement Alleviating Factor(s): Rest Associated Signs And Symptoms: Negative: Loss Of Consciousness, Ecchymosis, Swelling - Allergies/Home Medications Allergies/Adverse Reactions: Allergies Allergy/AdvReac Type Severity Reaction Status Date / Time acetaminophen [From Tylenol] Allergy Intermediate Anaphylatic Verified 07/03/18 15:37 Shock diazepam [From Valium] Allergy Blurred Verified 07/03/18 15:36 Vision diphenhydramine Allergy Blurred Verified 07/03/18 15:36 [From Benadryl] Vision ezetimibe [From Vytorin] Allergy Muscle Ache Verified 07/03/18 15:36 niacin Allergy Itching Verified 07/03/18 15:36 simvastatin [From Vytorin] Allergy Muscle Ache Verified 07/03/18 15:36 Kstkxdi-Znp-Nkm Reductase Allergy Muscle Ache Verified 07/03/18 15:36 Inhibitor PACER -NOT MR COMPATIBLE Allergy PACER -NOT Uncoded 07/03/18 15:36 MR COMPATIBLE PMH/Surg Hx/FS Hx/Imm Hx Endocrine History: Diabetes - type 2, Thyroid Disease Cardiovascular History: Cardiac Disease, Hypertension Other Cancer History: basal cell carcinoma-nose Other History Of: Anticoagulant Therapy - Surgical History Surgical History: Yes Surgery Procedure, Year, and Place: appe-194, miscarriages wtih D&c. pacer- 2006 AND 2014. tonsils AND ADENOIDECTOMY-1946. carotid endarterectomy- BILATERAL. nanette. ADHESIONS-1979. BILATERAL CATARACTS-2006 - Family History Known Family History: Positive: Cardiac Disease - CAD, [place] - Social History Alcohol Use: None Substance Use Type: None Smoking Status (MU): Former Smoker Amount Used/How Often: 3/4 PPD X 20 YEARS Length of Time of Smoking/Using Tobacco: 2012 Have You Smoked in the Last Year: No When Did the Patient Quit Smoking/Using Tobacco: 04/2003 - Immunization History Most Recent Influenza Vaccination: unk Most Recent Pneumonia Vaccination: 2013 Review of Systems Constitutional: Negative Skin: Negative Eyes: Negative ENT: Negative Respiratory: Negative Cardiovascular: Negative Gastrointestinal: Negative Genitourinary: Negative Motor: Negative Neurovascular: Negative Musculoskeletal: Other: - POS: right and left wrist, right shoulder, and right elbow pain Neurological: Negative Psychological: Negative All Other Systems Reviewed And Are Negative: Yes Physical Exam - Summary Physical Exam Summary: General: well-appearing, no pain distress Skin: warm, color reflects adequate perfusion, dry Head: normal Eyes: EOMI, MILTON ENT: normal Neck: supple, nontender Respiratory: CTA, breath sounds present Cardiovascular: RRR Abdomen: soft, nontender Bowel: present Musculoskeletal: Tenderness to palpation on right elbow and distal right humerus. She has pain with ROM of elbow, wrist, and shoulder on the right. Neurological: normal, sensory/motor intact, A&O x3 Psychological: affect/mood appropriate Triage Information Reviewed: Yes Vital Signs: Initial Vital Signs Temp 96.8 F 07/03/18 15:30 Pulse 77 07/03/18 15:30 Resp 22 07/03/18 15:30 BP 170/73 07/03/18 15:30 Pulse Ox 100 07/03/18 15:30 Vital Signs Reviewed: Yes Diagnostics - Radiology Right wrist XR Xray Interpretation: No Acute Changes - IMPRESSION: No fracture of the wrist is noted. Dr. Glynn has reviewed this report. Radiology Interpretation Completed By: Radiologist Right elbow XR Xray Interpretation: No Acute Changes - IMPRESSION: No obvious fracture is noted. Dr. Glynn has reviewed this report. Radiology Interpretation Completed By: Radiologist Right shoulder XR Xray Interpretation: No Acute Changes - IMPRESSION: AC joint arthritis without evidence of fracture. Dr. Glynn has reviewed this report. Radiology Interpretation Completed By: Radiologist Re-Evaluation - Re-Evaluation First Eval Re-Evaluation Time: 16:33 Comment: I reviewed the XR results with the pt and daughter. Minor Trauma Course/Dx - Course Course Of Treatment: Medications reviewed. Allergies noted. BP noted and advised to follow up with PCP. DISCUSSED X-RAY RESULTS WITH THE PATIENT AND HER FAMILY. BECAUSE THE PATIENT HAS A GREAT DEAL OF PAIN AT THE ELBOW WITH ATTEMPTING TO SUPINATE THE RIGHT WRIST, I RECOMMENDED ORTHOPEDIC F/U. - Differential Dx/Diagnosis Provider Diagnoses: RIGHT WRIST, ELBOW AND SHOULDER SPRAIN. Hypertension Discharge - Sign-Out/Discharge Documenting (check all that apply): Patient Departure - Discharge All imaging exams completed and their final reports reviewed: Yes - Discharge Plan Condition: Stable Disposition: HOME Patient Education Materials: Elbow Sprain (ED), Wrist Sprain (ED), Shoulder Pain (ED) Referrals: Clarke Cohen MD [Primary Care Provider] - Omer Ibrahim MD [Medical Doctor] - Additional Instructions: FOLLOW UP WITH ORTHOPEDICS. GET RECHECKED FOR ANY WORSENING OF YOUR CONDITION OR QUESTIONS OR CONCERNS. Your blood pressure was elevated during todays visit, please follow up with your primary care provider within a week for further evaluation. - Billing Disposition and Condition Condition: STABLE Disposition: Home - Attestation Statements Document Initiated by León: Yes Documenting Scribe: Eugenia Zuniga Provider For Whom León is Documenting (Include Credential): Ismael Glynn MD Scribe Attestation: Eugenia Martinez, scribed for Ismael Glynn MD on 07/03/18 at 1750. Scribe Documentation Reviewed: Yes Provider Attestation: The documentation as recorded by the Eugenia esparza accurately reflects the service I personally performed and the decisions made by me, Ismael Glynn MD
--- NOTE | 2018-07-03 16:17 | RAD ---
Indication: Right shoulder pain after fall 3 views of the right shoulder demonstrates AC joint arthritis. There is no fracture or dislocation. No other bone or joint effusion is noted. IMPRESSION: AC joint arthritis without evidence of fracture.
--- NOTE | 2018-07-03 16:17 | RAD ---
Indication: Right elbow pain after fall. 4 views of the right elbow demonstrates suboptimal positioning of the right elbow. No definite fracture or effusion is identified. No other bone or joint abnormality is noted. IMPRESSION: No obvious fracture is noted.
--- NOTE | 2018-07-03 16:18 | RAD ---
Indication: Right wrist injury 3 views of the wrist demonstrates no fracture. No other bone or joint abnormality is identified. IMPRESSION: NO FRACTURE OF THE WRIST IS NOTED.
== END 2018-07-03 16:43 | disposition home or self-care (01) ==
LOC: UCEAST 14:46
DX: S63.501A Unspecified sprain of right wrist, initial encounter (principal); S53.401A Unspecified sprain of right elbow, initial encounter; S43.401A Unspecified sprain of right shoulder joint, initial encounter; W19.XXXA Unspecified fall, initial encounter; Y93.89 Activity, other specified; Y92.009 Unspecified place in unspecified non-institutional (private) residence as the place of occurrence of the external cause; I10 Essential (primary) hypertension; Z79.01 Long term (current) use of anticoagulants; Z95.0 Presence of cardiac pacemaker; Z88.6 Allergy status to analgesic agent; Z88.8 Allergy status to other drugs, medicaments and biological substances; Z87.891 Personal history of nicotine dependence
CPT/HCPCS: 99212; G0463

== ENCOUNTER 2018-10-28 20:35 | Emergency (ER) | payer MEDICARE, BC ==
[2018-10-28] MEDS ORDERED: NS 0.9% 1000 ML* 1,000 ML IV ONE (20:39)
--- OUTSIDE RECORDS SUMMARY | 2018-10-28 20:42 | XMS REPORT | Continuity of Care Document ---
:1940 External Reference #:[id number] Author Name Miroslava Albright Care Team Providers Name Role Phone Clarke Cohen MD Primary Care Physician Unavailable Payers Type Date Identification Numbers Payment Provider Subscriber Effective: 1994 Policy Number: [id number] Medicare Magan Ashley PayID: [id number] [address] [place] [address] Policy Number: [id number] [facility] Magan Ashley PayID: [id number] [address] [place] [address] Advance Directives Description No Information Available Problems Date Description Provider Status Onset: 02/10/2012 [...] Chronic atrial fibrillation Danny Hidalgo M.D. Active Family History Description No Information Available Social History Type Date Description Comments Sex Unknown Marital Status Lives With Alone Occupation Retired [employer] Cigarette Use Quit 12 Years Ago ETOH Use Denies alcohol use Tobacco Use Start: Unknown End: Patient is a former smoker Unknown Recreational Drug Use Denies Drug Use Smoking Status Reviewed: 10/20/18 Patient is a former smoker Exercise Type/Frequency Exercises rarely Allergies, Adverse Reactions, Alerts Date Description Reaction Status Severity Comments 03/27/2007 Statins Active 07/21/2010 Vytorin Active myalgias 05/28/2011 Acetaminophen Throat swelling Active generic. Okay to take Brand name Tylenol 06/07/2013 Niacin flushing Active 12/23/2015 Valium Active blurred vision 12/23/2015 Benadryl Active blurred vision 04/18/2018 Praluent numbness in legs, Active Moderate falls 03/05/2004 NKDA Inactive Medications Medication Date Status Form Strength Qnty SIG Indications Ordering Provider Irbesartan 05/30 Active Tablets 75mg 90tab 1 by mouth s every day Tamiko Hidalgo M.D. Crestor 04/20 Active Tablets 5mg 24tab 1 by mouth s three times F. a week Yasmin Hidalgo Spironolactone 07/22 Active Tablets 25mg [...] day or as needed Creon Active Caps [id number] take 1 cap Part by mouth with [...] 12/21 Hx Tablets 1000mg 1 po bid Tamiko Hidalgo, 01/24.D. Nitro-Dur 12/21 Hx Patches 0.2mg/HR [...] Per Unit Dose Up To 40 Millicuries Immunizations Description No Information Available Vital Signs Date Vital Result Comment 10/20/2018 1:22pm Height 64 inches 5'4" Weight 210.00 lb with shoes Heart Rate 76 /min BP Systolic Sitting 130 mmHg BP Diastolic Sitting 70 mmHg BMI (Body Mass Index) 36.0 kg/m2 Ejection Fraction 60-65% echo. 05/15/18 06/16/2018 1:38pm Height 64 inches 5'4" Weight 211.25 lb with shoes Heart Rate 68 /min BP Systolic Sitting 128 mmHg lue lg cuff BP Diastolic Sitting 62 mmHg lue lg cuff BP Systolic Standing 124 mmHg BP Diastolic Standing 70 mmHg Respiratory Rate 18 /min BMI (Body Mass Index) 36.3 kg/m2 Ejection Fraction 60-65% 05/15/2018 echo 03/02/2018 10:56am Height 64 inches 5'4" Weight 214.50 lb w/shoes Heart Rate 70 /min BP Systolic Sitting 130 mmHg L/A LG Cuff BP Diastolic Sitting 60 mmHg L/A LG Cuff BMI (Body Mass Index) 36.8 kg/m2 Ejection Fraction 60-65% echo 06/08/2017 01/26/2018 10:16am Height 64 inches 5'4" Weight 215.00 lb with shoes Heart Rate 70 /min BP Systolic Sitting 156 mmHg Lue lg cuff BP Diastolic Sitting 60 mmHg Lue lg cuff BP Systolic Standing 150 mmHg Lue lg cuff BP Diastolic Standing 70 mmHg Lue lg cuff Respiratory Rate 18 /min BMI (Body Mass Index) 36.9 kg/m2 Ejection Fraction 60-65% date 06/08/17 ECHO 12/20/2017 1:14pm Height 64 inches 5'4" Weight 206.00 lb w/ shoes Heart Rate 66 /min reg BP Systolic Sitting 122 mmHg Lue BP Diastolic Sitting 76 mmHg Lue Respiratory Rate 16 /min BMI (Body Mass Index) 35.4 kg/m2 Ejection Fraction 60-65% As of 06/08/17 echo 08/15/2017 10:24am Height 64 inches 5'4" Weight 202.75 lb with shoes Heart Rate 80 /min BP Systolic Sitting 144 mmHg Ra lrg cuff BP Diastolic Sitting 82 mmHg Ra lrg cuff BMI (Body Mass Index) 34.8 kg/m2 Ejection Fraction 60%-65% echo 06/08/17 07/22/2017 10:12am Height 64 inches 5'4" Weight 202.00 lb with shoes Heart Rate 62 /min BP Systolic Sitting 148 mmHg Lue large cuff BP Diastolic Sitting 62 mmHg Lue large cuff BP Systolic Standing 115 mmHg Rue large cuff BP Diastolic Standing 62 mmHg Rue large cuff Respiratory Rate 16 /min BMI (Body Mass Index) 34.7 kg/m2 07/13/2017 12:47pm Height 64 inches 5'4" Weight 206.00 lb with shoes Heart Rate 78 /min BP Systolic Sitting 142 mmHg Ra lrg cuff BP Diastolic Sitting 82 mmHg Ra lrg cuff BMI (Body Mass Index) 35.4 kg/m2 Ejection Fraction 60%-65% echo 06/08/17 06/01/2017 10:11am Height 64 inches 5'4" Weight 202.00 lb with shoes Heart Rate 72 /min BP Systolic Sitting 154 mmHg Ra reg cuff BP Diastolic Sitting 68 mmHg Ra reg cuff BMI (Body Mass Index) 34.7 kg/m2 Ejection Fraction 60% - 65% echo 01/18/17 03/02/2017 2:15pm Height 64 inches 5'4" Heart Rate 80 /min BP Systolic Sitting 148 mmHg LA lrg cuff BP Diastolic Sitting 66 mmHg LA lrg cuff Ejection Fraction 60% - 65% echo 01/18/17 08/09/2016 2:51pm Height 64 inches 5'4" Weight 203.00 lb w/shoes Heart Rate 74 /min BP Systolic Sitting 164 mmHg LA lg cuff BP Diastolic Sitting 64 mmHg LA lg cuff BMI (Body Mass Index) 34.8 kg/m2 Ejection Fraction > 70 Echo 09/12/15 07/14/2016 1:17pm Height 64 inches 5'4" Weight 203.00 lb w/shoes Heart Rate 78 /min BP Systolic Sitting 160 mmHg LA, large BP Diastolic Sitting 82 mmHg LA, large BMI (Body Mass Index) 34.8 kg/m2 Ejection Fraction > 70 Echo 09/12/15 02/25/2016 9:20am Height 64 inches 5'4" Weight 206.25 lb with shoes Heart Rate 78 /min BP Systolic 136 mmHg BP Diastolic 70 mmHg BMI (Body Mass Index) 35.4 kg/m2 Ejection Fraction >70% echo 09/12/15 01/05/2016 11:06am Height 64 inches 5'4" Weight 209.00 lb [...] 35.9 kg/m2 Ejection Fraction >70% 09/12/15 12/23/2015 2:54pm Height 64 inches 5'4" Weight 209.00 lb [...] 35.9 kg/m2 Ejection Fraction >70% 09/12/15 12/01/2015 10:37am Height 64 inches 5'4" Weight 204.00 lb w/shoes Heart Rate 72 /min BP Systolic Sitting 144 mmHg LA lg cuff BP Diastolic Sitting 68 mmHg LA lg cuff BMI (Body Mass Index) 35.0 kg/m2 Ejection Fraction > 70 echo 09/12/15 11/12/2015 11:19am Height 64 inches 5'4" Weight 209.00 lb Heart Rate 70 /min 70 BP Systolic Sitting 148 mmHg right arm, large cuff BP Diastolic Sitting 70 mmHg right arm, large cuff BP Systolic Standing 142 mmHg right arm, large cuff BP Diastolic Standing 68 mmHg right arm, large cuff Respiratory Rate 20 /min BMI (Body Mass Index) 35.9 kg/m2 Ejection Fraction >70% 09/12/15 09/30/2015 1:43pm Height 64 inches 5'4" Weight 211.25 lb w/shoes Heart Rate 76 /min BP Systolic Sitting 144 mmHg LA lg cuff BP Diastolic Sitting 68 mmHg LA lg cuff BMI (Body Mass Index) 36.3 kg/m2 Ejection Fraction > 70 echo 09/12/15 09/12/2015 2:55pm Height 64 inches 5'4" Heart Rate 72 /min BP Systolic 144 mmHg LA, large BP Diastolic 74 mmHg LA, large BP Systolic Sitting 174 mmHg LA, large BP Diastolic Sitting 74 mmHg LA, large 08/27/2015 11:10am Height 64 inches 5'4" Weight 210.62 lb with shoes Heart Rate 70 /min BP Systolic Sitting 140 mmHg LA lg cuff BP Diastolic Sitting 70 mmHg LA lg cuff Respiratory Rate 16 /min BMI (Body Mass Index) 36.1 kg/m2 Ejection Fraction 60-65% date 04/11/15 Cory 07/03/2015 2:41pm Height 64 inches 5'4" Weight 208.75 lb w/ shoes Heart Rate 72 /min BP Systolic Sitting 142 mmHg LA, large cuff BP Diastolic Sitting 60 mmHg LA, large cuff BMI (Body Mass Index) 35.8 kg/m2 Ejection Fraction 60-65% 04/11/15 Cory 04/16/2015 10:00am Height 64 inches 5'4" Weight 209.75 lb Heart Rate 60 /min BP Systolic Sitting 154 mmHg Ra, reg BP Diastolic Sitting 68 mmHg Ra, reg BMI (Body Mass Index) 36.0 kg/m2 Ejection Fraction 60%-65% 04/11/15 03/06/2015 1:57pm Height 64 inches 5'4" Weight 214.00 lb Heart Rate 80 /min BP Systolic Sitting 132 mmHg left arm, large cuff BP Diastolic Sitting 70 mmHg left arm, large cuff BMI (Body Mass Index) 36.7 kg/m2 Ejection Fraction 65-70% 06/07/13 07/09/2014 1:01pm Height 64 inches 5'4" Weight 213.00 lb with shoes Heart Rate 64 /min BP Systolic Sitting 136 mmHg Ra lg cuff BP Diastolic Sitting 60 mmHg Ra lg cuff Respiratory Rate 16 /min BMI (Body Mass Index) 36.6 kg/m2 07/04/2014 11:30am Height 64 inches 5'4" Weight 209.00 lb with shoes Heart Rate 72 /min BP Systolic Sitting 134 mmHg LA, Lg cuff BP Diastolic Sitting 68 mmHg LA, Lg cuff BP Systolic Standing 130 mmHg LA BP Diastolic Standing 66 mmHg LA Respiratory Rate 16 /min BMI (Body Mass Index) 35.9 kg/m2 06/12/2014 10:00am Height 64 inches 5'4" Weight 208.00 lb without shoes Heart Rate 60 /min BP Systolic Sitting 134 mmHg L arm , Large cuff BP Diastolic Sitting 70 mmHg L arm , Large cuff BP Systolic Standing 110 mmHg c/o dizziness BP Diastolic Standing 70 mmHg c/o dizziness Respiratory Rate 18 /min BMI (Body Mass Index) 35.7 kg/m2 06/10/2014 12:18pm Height 64 inches 5'4" Weight 209.00 lb Heart Rate 62 /min BP Systolic Sitting 168 mmHg LA reg cuff BP Diastolic Sitting 70 mmHg LA reg cuff Respiratory Rate 12 /min BMI (Body Mass Index) 35.9 kg/m2 08/27/2013 2:39pm Height 64 inches 5'4" Weight 215.00 lb Heart Rate 74 /min BP Systolic 140 mmHg BP Diastolic 62 mmHg BMI (Body Mass Index) 36.9 kg/m2 04/05/2013 3:46pm Height 64 inches 5'4" Weight 214.00 lb Heart Rate 78 /min BP Systolic 130 mmHg BP Diastolic 68 mmHg Respiratory Rate 16 /min BMI (Body Mass Index) 36.7 kg/m2 09/11/2012 2:42pm Height 64 inches 5'4" Weight 206.00 lb Heart Rate 80 /min BP Systolic Sitting 128 mmHg BP Diastolic Sitting 64 mmHg Respiratory Rate 20 /min BMI (Body Mass Index) 35.4 kg/m2 02/10/2012 2:54pm Height 64 inches 5'4" Weight 214.00 lb Heart Rate 68 /min BP Systolic Sitting 130 mmHg L BP Diastolic Sitting 64 mmHg L BMI (Body Mass Index) 36.7 kg/m2 05/28/2011 2:09pm Height 64 inches 5'4" Weight 219.00 lb Heart Rate 65 /min BP Systolic Sitting 130 mmHg BP Diastolic Sitting 76 mmHg BMI (Body Mass Index) 37.6 kg/m2 07/21/2010 3:37pm Weight 223.00 lb Heart Rate 70 /min BP Systolic Sitting 132 mmHg BP Diastolic Sitting 62 mmHg 04/24/2009 3:40pm Weight 212.00 lb Heart Rate 72 /min BP Systolic Sitting 130 mmHg BP Diastolic Sitting 60 mmHg Respiratory Rate 16 /min 08/28/2008 3:28pm Height 64 inches 5'4" Weight 216.00 lb Heart Rate 64 /min BP Systolic Sitting 140 mmHg BP Diastolic Sitting 80 mmHg BMI (Body Mass Index) 37.1 kg/m2 01/25/2008 3:53pm Height 64 inches 5'4" Weight 219.00 lb Heart Rate 62 /min BP Systolic Sitting 130 mmHg BP Diastolic Sitting 90 mmHg BP Systolic Standing 126 mmHg BP Diastolic Standing 90 mmHg Respiratory Rate 16 /min BMI (Body Mass Index) 37.6 kg/m2 07/26/2007 3:25pm Height 64 inches 5'4" Weight 222.00 lb Heart Rate 78 /min BP Systolic Sitting 130 mmHg BP Diastolic Sitting 70 mmHg BP Systolic Standing 124 mmHg BP Diastolic Standing 70 mmHg BMI (Body Mass Index) 38.1 kg/m2 06/22/2007 3:39pm Height 64 inches 5'4" Weight 226.25 lb Heart Rate 73 /min BP Systolic Sitting 140 mmHg BP Diastolic Sitting 70 mmHg BP Systolic Standing 124 mmHg BP Diastolic Standing 70 mmHg BMI (Body Mass Index) 38.8 kg/m2 04/21/2007 2:45pm Height 64 inches 5'4" Weight 228.75 lb Heart Rate 73 /min BP Systolic Sitting 124 mmHg BP Diastolic Sitting 70 mmHg BP Systolic Standing 110 mmHg BP Diastolic Standing 80 mmHg BMI (Body Mass Index) 39.3 kg/m2 03/22/2007 3:51pm Height 64 inches 5'4" Weight 233.00 lb Heart Rate 68 /min BP Systolic Sitting 130 mmHg L BP Diastolic Sitting 80 mmHg L O2 % BldC Oximetry 96 % BMI (Body Mass Index) 40.0 kg/m2 03/22/2007 3:47pm Height 64 inches 5'4" 12/21/2006 3:14pm Height 64 inches 5'4" Weight 233.00 lb Heart Rate 85 /min BP Systolic Sitting 160 mmHg BP Diastolic Sitting 90 mmHg BP Systolic Standing 158 mmHg BP Diastolic Standing 90 mmHg O2 % BldC Oximetry 98 % BMI (Body Mass Index) 40.0 kg/m2 06/08/2006 2:18pm Height 64 inches 5'4" Weight 234.00 lb Heart Rate 75 /min BP Systolic Sitting 130 mmHg R BP Diastolic Sitting 60 mmHg R BP Systolic Standing 140 mmHg R BP Diastolic Standing 70 mmHg R BMI (Body Mass Index) 40.2 kg/m2 03/25/2006 3:45pm Height 64 inches 5'4" Weight 236.00 lb Heart Rate 72 /min BP Systolic Sitting 110 mmHg R BP Diastolic Sitting 70 mmHg R BP Systolic Standing 110 mmHg R BP Diastolic Standing 64 mmHg R BMI (Body Mass Index) 40.5 kg/m2 09/22/2005 1:45pm Height 64 inches 5'4" Weight 241.00 lb Heart Rate 77 /min BP Systolic Sitting 130 mmHg R BP Diastolic Sitting 70 mmHg R BP Systolic Standing 124 mmHg R BP Diastolic Standing 80 mmHg R O2 % BldC Oximetry 95 % BMI (Body Mass Index) 41.4 kg/m2 07/16/2005 9:10am Height 64 inches 5'4" Weight 248.00 lb Heart Rate 66 /min BP Systolic Sitting 140 mmHg L BP Diastolic Sitting 78 mmHg L BP Systolic Standing 150 mmHg L BP Diastolic Standing 70 mmHg L BMI (Body Mass Index) 42.6 kg/m2 07/09/2005 9:16am Height 64 inches 5'4" Weight 245.00 lb Heart Rate 70 /min BP Systolic Sitting 140 mmHg L BP Diastolic Sitting 78 mmHg L BP Systolic Standing 130 mmHg L BP Diastolic Standing 70 mmHg L O2 % BldC Oximetry 95 % BMI (Body Mass Index) 42.0 kg/m2 07/02/2005 8:52am Height 64 inches 5'4" Weight 244.00 lb Heart Rate 84 /min BP Systolic Sitting 110 mmHg BP Diastolic Sitting 70 mmHg BP Systolic Standing 94 mmHg BP Diastolic Standing 60 mmHg BMI (Body Mass Index) 41.9 kg/m2 06/25/2005 8:48am Height 64 inches 5'4" Weight 244.00 lb Heart Rate 81 /min BP Systolic Sitting 112 mmHg BP Diastolic Sitting 70 mmHg BP Systolic Standing 100 mmHg BP Diastolic Standing 80 mmHg O2 % BldC Oximetry 95 % BMI (Body Mass Index) 41.9 kg/m2 06/17/2005 9:16am Height 64 inches 5'4" Weight 240.00 lb Heart Rate 104 /min BP Systolic Sitting 144 mmHg R BP Diastolic Sitting 80 mmHg R BP Systolic Standing 126 mmHg R BP Diastolic Standing 68 mmHg R O2 % BldC Oximetry 94 % BMI (Body Mass Index) 41.2 kg/m2 06/03/2005 2:26pm Height 64 inches 5'4" Weight 242.00 lb Heart Rate 78 /min BP Systolic Sitting 104 mmHg R BP Diastolic Sitting 60 mmHg R BP Systolic Standing 98 mmHg R BP Diastolic Standing 62 mmHg R O2 % BldC Oximetry 95 % BMI (Body Mass Index) 41.5 kg/m2 04/08/2005 2:51pm Height 64 inches 5'4" Weight 249.00 lb Heart Rate 89 /min BP Systolic Sitting 114 mmHg R BP Diastolic Sitting 80 mmHg R BP Systolic Standing 138 mmHg R BP Diastolic Standing 80 mmHg R O2 % BldC Oximetry 95 % BMI (Body Mass Index) 42.7 kg/m2 05/21/2004 3:20pm Height 64 inches 5'4" Weight 232.00 lb Heart Rate 51 /min BP Systolic Sitting 134 mmHg L BP Diastolic Sitting 60 mmHg L BP Systolic Standing 130 mmHg L BP Diastolic Standing 70 mmHg L BMI (Body Mass Index) 39.8 kg/m2 04/23/2004 10:58am Weight 227.00 lb Heart Rate 82 /min BP Systolic Sitting 124 mmHg BP Diastolic Sitting 78 mmHg BP Systolic Standing 110 mmHg BP Diastolic Standing 80 mmHg O2 % BldC Oximetry 96 % 04/08/2004 3:07pm Height 64 inches 5'4" Weight 228.00 lb Heart Rate 60 /min BP Systolic Sitting 100 mmHg L BP Diastolic Sitting 60 mmHg L BP Systolic Standing 104 mmHg L BP Diastolic Standing 64 mmHg L BMI (Body Mass Index) 39.1 kg/m2 03/26/2004 1:49pm Height 64 inches Weight 228.00 lb Heart Rate 60 /min BP Systolic Sitting 150 mmHg BP Diastolic Sitting 80 mmHg BP Systolic Standing 150 mmHg BP Diastolic Standing 80 mmHg BMI (Body Mass Index) 39.1 kg/m2 03/05/2004 9:29am Height 64 inches Weight 226.00 lb Heart Rate 68 /min BP Systolic Sitting 100 mmHg BP Diastolic Sitting 60 mmHg BP Systolic Standing 90 mmHg BP Diastolic Standing 60 mmHg BMI (Body Mass Index) 38.8 kg/m2 Results Test Date Facility Test Result H/L Range Note Lipid Panel - 06/16/2018 [facility] Creatine <pending> [address] Kinase(CK) [place] [address] [phone] Laboratory test 06/01/2017 [facility] TSH (Thyroid 1.43 mcIU/mL N 0.34-5.[address] Stim [place]orm) [place] [address] [phone] CRP High Sensitivity 4.34 mg/L N 1 Erythrocyte Sed Rate 31 mm/Hr N 0-40 Comp Metabolic Panel 06/01/2017 [facility] Sodium 136 mmol/L N 133-[address] [place] [address] [phone] Potassium 4.2 mmol/L N 3.5-5.0 Chloride 100 mmol/L Low 101-111 Co2 Carbon Dioxide 28 mmol/L N 22-32 Anion Gap 8 mmol/L N 2-11 Glucose 67 mg/dL Low 70-100 Blood Urea Nitrogen 17 mg/dL N 6-24 Creatinine 0.60 mg/dL N 0.51-0.95 BUN/Creatinine Ratio 28.3 High 8-20 Calcium 9.2 mg/dL N 8.6-10.3 Total Protein 6.9 g/dL N 6.4-8.9 Albumin 3.8 g/dL N 3.2-5.2 Globulin 3.1 g/dL N 2-4 Albumin/Globulin Ratio 1.2 N 1-3 Total Bilirubin 0.40 mg/dL N 0.2-1.0 Alkaline Phosphatase 50 U/L N 34-104 Alt 10 U/L N 7-52 Ast 13 U/L N 13-39 Egfr Non- 96.7 N >60 Egfr 124.3 N >60 2 Laboratory test 06/01/2017 [facility] B-Type 200 pg/mL High [address] [place] [address] Peptide BNP [phone] CBC Auto Diff 06/01/2017 [facility] White Blood 9.6 N 3.5-[address] Count 10^3/uL 0.8 [place] [address] [phone] Red Blood Count 5.14 10^6/uL N 4.0-5.4 Hemoglobin 14.0 g/dL N 12.0-16.0 Hematocrit 43 % N 35-47 Mean Corpuscular Volume 84 fL N 80-97 Mean Corpuscular Hemoglobin 27 pg N 27-31 Mean Corpuscular HGB Conc 33 g/dL N 31-36 Red Cell Distribution Width 15 % N 10.5-15 Platelet Count 278 10^3/uL N 150-450 Mean Platelet Volume 9 um3 N 7.4-10.4 Abs Neutrophils 6.4 10^3/uL N 1.5-7.7 Abs Lymphocytes 2.2 10^3/uL N 1.0-4.8 Abs Monocytes 0.7 10^3/uL N 0-0.8 Abs Eosinophils 0.2 10^3/uL N 0-0.6 Abs Basophils 0.1 10^3/uL N 0-0.2 Abs Nucleated RBC 0.01 10^3/uL N Granulocyte % 66.8 % N 38-83 Lymphocyte % 22.9 % Low 25-47 Monocyte % 7.6 % N 1-9 Eosinophil % 2.2 % N 0-6 Basophil % 0.5 % N 0-2 Nucleated Red Blood Cells % 0.1 N Laboratory test 06/01/2017 [facility] Troponin-I 0.01 ng/mL N <0.[address] (TnI) [place] [address] [phone] Istat 05/18/2017 [facility] Poc Bun Mainct 20 mg/dL High 9-18 BUN/Crea/Egfr/V [address] [place] [address] [phone] Poc Crea Mainct 0.7 mg/dL N 0.6-0.9 GFR Non- MCT 80.9 N >60 GFR Mainct 104.1 N >60 4 Basic Metabolic Panel 12/19/2015 [facility] Sodium 134 mmol/L N 133-[address] [place] [address] [phone] Potassium 4.1 mmol/L N 3.5-5.0 Chloride 96 mmol/L Low 101-111 Co2 Carbon Dioxide 32 mmol/L N 22-32 Anion Gap 6 mmol/L N 2-11 Glucose 169 mg/dL High 70-100 Blood Urea Nitrogen 17 mg/dL N 6-24 Creatinine 0.70 mg/dL N 0.51-0.95 BUN/Creatinine Ratio 24.3 High 8-20 Calcium 9.4 mg/dL N 8.6-10.3 Egfr Non- 81.4 N >60 Egfr 104.6 N >60 5 CBC Auto Diff 12/19/2015 [facility] White Blood 10.0 10^3/uL N 3.5-10.[address] [place] [address] [phone] Red Blood Count 5.15 10^6/uL N 4.0-5.4 Hemoglobin 15.2 g/dL N 12.0-16.0 Hematocrit 46 % N 35-47 Mean Corpuscular Volume 90 fL N 80-97 Mean Corpuscular Hemoglobin 29 pg N 27-31 Mean Corpuscular HGB Conc 33 g/dL N 31-36 Red Cell Distribution Width 14 % N 10.5-15 Platelet Count 277 10^3/uL N 150-450 Mean Platelet Volume 9 um3 N 7.4-10.4 Abs Neutrophils 7.2 10^3/uL N 1.5-7.7 Abs Lymphocytes 1.9 10^3/uL N 1.0-4.8 Abs Monocytes 0.7 10^3/uL N 0-0.8 Abs Eosinophils 0.2 10^3/uL N 0-0.6 Abs Basophils 0.1 10^3/uL N 0-0.2 Abs Nucleated RBC 0.02 10^3/uL N Granulocyte % 72.0 % N 38-83 Lymphocyte % 18.6 % Low 25-47 Monocyte % 6.8 % N 1-9 Eosinophil % 1.7 % N 0-6 Basophil % 0.9 % N 0-2 Nucleated Red Blood Cells % 0.2 N Basic Metabolic Panel 12/18/2015 [facility] Sodium 135 mmol/L N 133-145 [address] [place] [address] [phone] Potassium 4.2 mmol/L N 3.5-5.0 Chloride 96 mmol/L Low 101-111 Co2 Carbon Dioxide 31 mmol/L N 22-32 Anion Gap 8 mmol/L N 2-11 Glucose 155 mg/dL High 70-100 Blood Urea Nitrogen 18 mg/dL N 6-24 Creatinine 0.68 mg/dL N 0.51-0.95 BUN/Creatinine Ratio 26.5 High 8-20 Calcium 9.5 mg/dL N 8.6-10.3 Egfr Non- 84.1 N >60 Egfr 108.2 N >60 6 Laboratory test 11/05/2015 [facility] Inr/Protime 1.19 High 0.89-1.11 7, 8 finding [address] [place] [address] [phone] Partial Thrombo Time PTT 39.2 seconds High 26.0-36.3 9 Basic Metabolic Panel 11/05/2015 [facility] Sodium 137 mmol/L N 133-145 [address] [place] [address] [phone] Potassium 4.0 mmol/L N 3.5-5.0 Chloride 99 mmol/L Low 101-111 Co2 Carbon Dioxide 30 mmol/L N 22-32 Anion Gap 8 mmol/L N 2-11 Glucose 149 mg/dL High 70-100 Blood Urea Nitrogen 16 mg/dL N 6-24 Creatinine 0.63 mg/dL N 0.51-0.95 BUN/Creatinine Ratio 25.4 High 8-20 Calcium 9.2 mg/dL N 8.6-10.3 Egfr Non- 91.9 N >60 Egfr 118.2 N >60 10 Inr/Protime 11/03/2015 [facility] Inr 1.68 High 0.89-1.[address] [place] [address] [phone] Basic Metabolic 11/03/2015 [facility] Sodium 138 mmol/L N 133- [address] [place] [address] [phone] Potassium 3.9 mmol/L N 3.5-5.0 Chloride 98 mmol/L Low 101-111 Co2 Carbon Dioxide 30 mmol/L N 22-32 Anion Gap 10 mmol/L N 2-11 Glucose 136 mg/dL High 70-100 Blood Urea Nitrogen 12 mg/dL N 6-24 Creatinine 0.58 mg/dL N 0.51-0.95 BUN/Creatinine Ratio 20.7 High 8-20 Calcium 9.6 mg/dL N 8.6-10.3 Egfr Non- 101.1 N >60 Egfr 130.0 N >60 11 CBC Auto 11/03/2015 [facility] White Blood 11.4 10^3/uL High 3.5-10.[address] [place] [address] [phone] Red Blood Count 5.25 10^6/uL N 4.0-5.4 Hemoglobin 15.2 g/dL N 12.0-16.0 Hematocrit 47 % N 35-47 Mean Corpuscular Volume 90 fL N 80-97 Mean Corpuscular Hemoglobin 29 pg N 27-31 Mean Corpuscular HGB Conc 32 g/dL N 31-36 Red Cell Distribution Width 14 % N 10.5-15 Platelet Count 306 10^3/uL N 150-450 Mean Platelet Volume 9 um3 N 7.4-10.4 Abs Neutrophils 8.7 10^3/uL High 1.5-7.7 Abs Lymphocytes 2.0 10^3/uL N 1.0-4.8 Abs Monocytes 0.6 10^3/uL N 0-0.8 Abs Eosinophils 0.1 10^3/uL N 0-0.6 Abs Basophils 0.1 10^3/uL N 0-0.2 Abs Nucleated RBC 0.01 10^3/uL N Granulocyte % 76.2 % N 38-83 Lymphocyte % 17.3 % Low 25-47 Monocyte % 5.1 % N 1-9 Eosinophil % 0.5 % N 0-6 Basophil % 0.9 % N 0-2 Nucleated Red Blood Cells % 0.1 N Surgical Pathology 07/02/2014 [facility] S RUN DATE: [address] 07/03/ <[place] [address] NOTE> [phone] Basic Metabolic 06/25/2014 [facility] Sodium 136 mmol/L N 133- [address] [place] [address] [phone] Potassium 4.1 mmol/L N 3.7-5.6 Chloride 99 mmol/L Low 101-111 Co2 Carbon Dioxide 30 mmol/L N 22-32 Anion Gap 7 mmol/L N 2-11 Glucose 99 mg/dL N 70-100 Blood Urea Nitrogen 20 mg/dL N 6-24 Creatinine 0.68 mg/dL N 0.51-0.95 BUN/Creatinine Ratio 29.4 High 8-20 Calcium 9.2 mg/dL N 8.6-10.3 Egfr Non- 84.4 N >60 Egfr 108.5 N >60 13 Lipid Panel - 04/17/2013 [facility] Creatine Kinase 34 U/L 0- 200 [address] [place] [address] [phone] Comp Metabolic 04/17/2013 [facility] Sodium 140 133-[address] mmol/[place] [address] [phone] Potassium 4.1 mmol/L 3.5-5.0 Chloride 103 mmol/L [...] Egfr Non- 120.9 >60 Egfr 155.5 >60 15 Lipid Profile 04/17/2013 [facility] Triglycerides 208 mg/dL High 40-200 (Trig/Chol/HDL) [address] [place], [place] [id number] [phone] Cholesterol 421 mg/dL High Less than 200 HDL Cholesterol 40 mg/dL 40-60 16 Cholesterol/HDL Ratio 10.5 Average High 1-4.44 LDL Cholesterol 339.4 High Less Than 100 17 Lipid Profile 01/08/2013 [facility] Triglycerides 226 mg/dL High 40-200 (Trig/Chol/HDL) [address] [place] [address] [phone] Cholesterol 376 mg/dL High Less than 200 HDL Cholesterol 47 mg/dL 40-60 18 Cholesterol/HDL Ratio 8.0 Average High 1-4.44 LDL Cholesterol 283.8 mg/dL High Less Than 100 19 Comp Metabolic Panel 01/08/2013 [facility] Sodium 139 mmol/L 133-145 [address] [place] [address] [phone] Potassium 4.2 mmol/L 3.5-5.0 Chloride 101 mmol/L [...] Egfr 155.5 >60 20 Lipid Panel - 01/08/2013 [facility] Creatine Kinase 26 U/L 0- 200 [address] [address] [place] [address] [phone] Lipid Profile 08/28/2012 [facility] Triglycerides 232 mg/dL High 40-200 (Trig/Chol/HDL [address] ) [place] [address] [phone] Cholesterol 463 mg/dL High Less than 200 22 HDL Cholesterol 42 mg/dL 40-60 23 Cholesterol/HDL Ratio 11.0 AVERAGE High 1-4.44 LDL Cholesterol 374.6 mg/dL High Less Than 100 Comp Metabolic Panel 08/28/2012 [facility] Sodium 134 mmol/L 133-145 [address] [place] [address] [phone] Potassium 4.2 mmol/L 3.5-5.0 Chloride 96 mmol/L [...] Egfr 126.0 >60 25 Lipid Panel - 08/28/2012 [facility] Creatine Kinase 22 U/L 0- 200 [address] [address] [place] [address] [phone] Lipid Panel - 05/08/2012 [facility] CPK (Creatine 34 U/L 0- [address]) [place] [address] [phone] Comp Metabolic 05/08/2012 [facility] Sodium 138 135-[address] mmol/[place] [address] [phone] Potassium 4.6 mmol/L 3.5-5.0 Chloride 100 mmol/L Low 101-111 Co2 (Carbon Dioxide) 30.0 mmol/L 22-32 Anion Gap 8.0 mmol/L 2-11 28 Glucose 127 mg/dL High 70-100 BUN 16 mg/dL 6-24 Creatinine 0.6 mg/dL 0.50-1.40 One Over Creatinine 1.66 BUN/Creatinine Ratio 26.7 High 8-20 Calcium 9.5 mg/dL 8.1-9.9 Total Protein 6.5 GM/DL 6.2-8.1 Albumin 3.3 GM/DL 3.2-5.2 Globulin 3.2 GM/DL 2-4 Albumin/Globulin Ratio 1.0 1-3 Bilirubin Total 0.9 mg/dL 0.4-1.5 29 Alkaline Phosphatase 75 U/L 30-110 Alt (SGPT) 28 U/L 14-54 Ast (Sgot) 19 U/L 12-42 eGFR Non- 98.3 > 60 eGFR 126.4 > 60 30 Lipid Profile 05/08/2012 [facility] Triglyceride 219 mg/dL High 40-200 (Trig/Chol/HDL) [address] [place] [address] [phone] Cholesterol 374 mg/dL High Less Than 200 31 High Density Lipoprotein 43 mg/dL 40-60 32 Cholesterol/HDL Ratio 8.70 AVERAGE High 1-4.44 Low Density Lipoprotein 287 mg/dL High Less Than 100 33 Lipid Panel - 09/20/2011 [facility] CPK (Creatine 62 U/L 0- [address] Kinase) [place] [address] [phone] Comp Metabolic 09/20/2011 [facility] Sodium 138 135-[address] mmol/[place] [address] [phone] Potassium 4.3 mmol/L 3.5-5.0 Chloride 98 mmol/L [...] eGFR 105.8 > 60 36 Lipid Profile 09/20/2011 [facility] Triglyceride 187 mg/dL 40 -200 (Trig/Chol/HDL) [address] [place] [address] [phone] Cholesterol 311 mg/dL High Less Than 200 37 High Density Lipoprotein 37 mg/dL Low 40-60 38 Cholesterol/HDL Ratio 8.41 AVERAGE High 1-4.44 Low Density Lipoprotein 237 mg/dL High Less Than 100 39 Basic Metabolic Panel 01/16/2010 [facility] Sodium 137 mmol/L 135-[address] [place] [address] [phone] Potassium 4.3 mmol/L 3.5-5.0 Chloride 96 mmol/L Low 101-111 Co2 (Carbon Dioxide) 32.0 mmol/L 22-32 Anion Gap 9.0 mmol/L 2-11 41 Glucose 102 mg/dL High 70-100 42 BUN 21 mg/dL 6-24 Creatinine 0.90 mg/dL 0.50-1.40 One Over Creatinine 1.10 BUN/Creatinine Ratio 23.3 High 8-20 Calcium 10.2 mg/dL High 8.1-9.9 43 eGFR Non- 65.8 > 60 eGFR 79.6 > 60 44 CBC With Manual 01/16/2010 [facility] White Blood 8.9 CUMM 4.8-10.[address] [place] [address] [phone] Red Cell Count 5.04 CUMM 4.2-5.4 Hemoglobin 14.7 g/dL 12.0-16.0 Hematocrit 44 % 35-47 Mean Corpuscular Volume 87 um3 79-97 Mean Corpuscular Hemoglob 29 pg 27-31 Mean Corpuscular HGB Cone 34 g/dL 32-36 Redcell Distribution WDTH 15 % 10.5-15 Platelet Count 393 CUMM 150-450 Mean Platelet Volume 8.7 um3 7.4-10.4 Polysegmented Neutrophil 67 % 38-83 Lymphocyte 21 % Low 25-47 Monocyte 9 % 0-13 Eosenophil 3 % 0-6 Absolute Neutrophil Count 5.9 Anisocytosis SLIGHT 1 Low risk: <1.00 Average risk: 1.00-3.00 [...] <15 (or dialysis) 12 RUN DATE: 07/03/14 [facility] LIVE PAGE 1 RUN TIME: [id number] [place], [place] [address] Specimen Inquiry Name: MAGAN ASHLEY : [address]: Jose Alberto Wylie MD Acct: [id number] Unit: [id number] AGE: 74 Location: [facility] Re07/02/14 SEX: F Status: REG REF SPEC: [id number] JEANETTE: 07/02/14- SUBM DR: Jose Alberto Wylie MD REQ: [id number] RECD: 07/02/14-1048 STATUS: SOUT _ ORDERED: LEVEL I FINAL DIAGNOSIS Pacemaker generator: Foreign body (pacemaker generator) (Gross diagnosis). PRE-OPERATIVE DIAGNOSIS Atrial fibrillation, bradycardia. GROSS DESCRIPTION The specimen is received in formalin labeled Magan Ashley and consists of a 4.6 x 4.4 x 0.9 cm. silver metallic medical science liaison. The following inscription is identified: [employer] ADAPTA ADDR01 DDDR SN [id number]. Per established hospital medical staff protocol no tissue is submitted. Gross only. Signed (signature on file) Fady Prado MD 1056 END OF REPORT * ML=Testing performed at Main Lab DEPARTMENT OF PATHOLOGY, [address] [place] [address] Fady Prado M.D. Director [facility] # [id number] 13 Because ethnic data is not always [...] 5 Kidney failure <15 (or dialysis) 14 FASTING 15 Because ethnic data is not always readily [...] 15-29 5 Kidney failure <15 (or dialysis) 16 HDL Interpretation: Undesirable: High Risk: Less than 40 mg/dL Desirable: Low Risk: Greater than 60 mg/dL 17 LDL Interpretation: Low Risk Optimal Level: LDL Less than 100 mg/dL Near or Above Optimal: LDL 100-129 mg/dL Borderline High Risk: LDL 130-159 mg/dL High Risk: LDL 160-189 mg/dL Very High Risk: LDL Greater than 189 mg/dL 18 HDL Interpretation: Undesirable: High Risk: Less [...] has been shown to interfere with the Jendrassik-Watha method for measuring total bilirubin. Samples from [...] has been shown to interfere with the Jendrassik-Watha method for measuring total bilirubin. Samples from [...] change was based on recommendations from the [employer]. 43 Please note change in [...] Kidney failure <15 (or dialysis) Procedures Date Code Description Status 10/20/2018 29821 EKG Tracing & Interpretation Completed 08/31/2018 41113 Pace Maker Eval W/Iterative Adjustment Single Lead Completed 08/31/2018 59511 Pace Maker Eval W/Iterative Adjustment Single Lead Completed 06/16/2018 30435 EKG Tracing & Interpretation Completed 05/15/2018 45372 ECHO Transthoracic, Real-Time 2D With Doppler And Color Completed Flow 05/15/2018 48294 ECHO Transthoracic, Real-Time 2D With Doppler And Color Completed Flow 02/27/2018 34256 Pace Maker Eval W/Iterative Adjustment Single Lead Completed 02/27/2018 89462 Pace Maker Eval W/Iterative Adjustment Single Lead Completed 12/20/2017 66541 EKG Tracing & Interpretation Completed 08/25/2017 38512 Pace Maker Eval W/Iterative Adjustment Single Lead Completed 07/13/2017 84259 EKG Tracing & Interpretation Completed 06/09/2017 68366 Stress Test Completed 06/09/2017 59446 Myocardial Perfusion Imaging Tomographic (Spect) Multiple Completed Studies 06/08/2017 88500 ECHO Transthoracic, Real-Time 2D With Doppler And Color Completed Flow 06/01/2017 38150 EKG Tracing & Interpretation Completed 03/15/2017 62953 Pace Maker Eval W/Iterative Adjustment Single Lead Completed 01/18/2017 11766 ECHO Transthorasic Realtime 2D W Doppler & Color Flow Hosp Completed 08/30/2016 30728 ECHO Transthoracic, Real-Time 2D With Doppler And Color Completed Flow 08/24/2016 71785 Pace Maker Eval W/Iterative Adjustment Single Lead Completed 07/14/2016 14695 EKG Tracing & Interpretation Completed 03/16/2016 86612 Interrogation Device Eval In Person W/DR Completed Analysis,Single,Dual,Mul 12/19/2015 39043 Intravasc.Blood Flow-Ea.Addtl Ves Completed 12/19/2015 76976 Intravascular Blood Flow Velocity Completed 12/19/2015 03045 Cath PLMT&NJX L Ventriculog Img S&I Completed 12/01/2015 26741 EKG Tracing & Interpretation Completed 11/05/2015 74477 RT & lt Cath W/Injx HRT Art&L Ventr Img S&I Completed 11/05/2015 85877 Intravascular Ultrasnd-Ea Addtl Completed 11/05/2015 60184 Intravascular Ultrasound (Coron) Completed 09/12/2015 36175 EKG Tracing & Interpretation Completed 09/12/2015 66263 ECHO Transthoracic, Real-Time 2D With Doppler And Color Completed Flow 08/25/2015 75834 Pace Maker Eval W/Iterative Adjment Dual Lead Completed 08/22/2015 75539 Treadmill Interp/Report Only Completed 08/22/2015 46908 Stress Test Supervsn W/Out I/R Completed 07/03/2015 22388 EKG Tracing & Interpretation Completed 04/11/2015 59852 Color Flow Doppler/Interp & Reprt Completed 04/11/2015 60681 Pulse Wave/Continuous-Interp.RPT Completed 04/11/2015 74310 Echocardiography, Transesophageal, Real Time W/Image 2D Completed W/W/O M-M 03/20/2015 79248 ECHO Transthoracic, Real-Time 2D With Doppler And Color Completed Flow 03/06/2015 22286 EKG Tracing & Interpretation Completed 02/17/2015 84626 Interrogation Device Eval In Person W/DR Completed Analysis,Single,Dual,Mul 07/02/2014 12050 Removal With Replacement Dual Lead System Pulse Generator Completed 06/10/2014 58940 Interrogation Device Eval In Person W/DR Completed Analysis,Single,Dual,Mul 05/02/2014 98556 Interrogation Device Eval In Person W/DR Completed Analysis,Single,Dual,Mul 03/06/2014 66810 Interrogation Device Eval In Person W/DR Completed Analysis,Single,Dual,Mul 02/01/2014 21996 Interrogation Device Eval In Person W/DR Completed Analysis,Single,Dual,Mul 10/10/2013 70620 Interrogation Device Eval In Person W/DR Completed Analysis,Single,Dual,Mul 08/27/2013 23912 EKG Tracing & Interpretation Completed 06/07/2013 17225 ECHO Transthoracic, Real-Time 2D With Doppler And Color Completed Flow 04/09/2013 50879 Pace Maker Eval W/Iterative Adjment Dual Lead Completed 04/05/2013 68606 EKG Tracing & Interpretation Completed 10/02/2012 06839 Interrogation Device Eval In Person W/DR Completed Analysis,Single,Dual,Mul 09/11/2012 80176 EKG Tracing & Interpretation Completed 04/13/2012 68781 Interrogation Device Eval In Person W/DR Completed Analysis,Single,Dual,Mul 02/10/2012 62403 EKG Tracing & Interpretation Completed 09/03/2011 90821 Interrogation Device Eval In Person W/DR Completed Analysis,Single,Dual,Mul 07/08/2011 05301 ECHO Transthoracic, Real-Time 2D With Doppler And Color Completed Flow 05/28/2011 89478 EKG Tracing & Interpretation Completed 03/15/2011 74340 Pace Maker Eval W/Iterative Adjment Dual Lead Completed 08/13/2010 30461 Interrogation Device Eval In Person W/DR Completed Analysis,Single,Dual,Mul 07/21/2010 66721 EKG Tracing & Interpretation Completed 02/05/2010 25450 Interrogation Device Eval In Person W/DR Completed Analysis,Single,Dual,Mul 01/14/2010 41440 ECHO Transthoracic, Real-Time 2D With Doppler And Color Completed Flow 01/13/2010 16920 Stress ECHO Interpretation/Report Hospital Completed 01/13/2010 68751 Treadmill Interp/Report Only Completed 01/13/2010 52147 Stress Test Supervsn W/Out I/R Completed 08/07/2009 52545 Pace Maker Eval W/Iterative Adjment Dual Lead Completed 04/24/2009 04097 EKG Tracing & Interpretation Completed 02/06/2009 47812 Interrogation Device Eval In Person W/ Completed Analysis,Single,Dual,Mul 08/28/2008 80763 EKG Tracing & Interpretation Completed 08/15/2008 37459 Pacemaker Check/Dual [place]/Office Completed 08/15/2008 75819 Pacemaker Check/Dual [place]/Office Completed 02/08/2008 05112 Pacemaker Check/Dual [place]/Office Completed 02/08/2008 38998 Pacemaker Check/Dual [place]/Office Completed 01/25/2008 27950 EKG Tracing & Interpretation Completed 08/10/2007 87300 Pacemaker Check/Dual [place]/Office Completed 08/10/2007 60561 Pacemaker Check/Dual [place]/Office Completed 07/26/2007 17773 EKG Tracing & Interpretation Completed 07/26/2007 63565 EKG Tracing & Interpretation Completed 06/22/2007 27976 EKG Tracing & Interpretation Completed 06/22/2007 21652 EKG Tracing & Interpretation Completed 04/21/2007 31755 EKG Tracing & Interpretation Completed 03/27/2007 47278 Color Doppler Completed 03/27/2007 91570 Color Doppler Completed 03/27/2007 70705 Pulse Doppler & Continuous Wave Completed 03/27/2007 51878 Echocardiogram Completed 03/27/2007 41298 Echocardiogram Completed 03/22/2007 69839 EKG Tracing & Interpretation Completed 03/22/2007 09127 EKG Tracing & Interpretation Completed 01/11/2007 64939 Holter Monitor Completed 12/21/2006 25563 EKG Tracing & Interpretation Completed 06/08/2006 62796 EKG Tracing & Interpretation Completed 03/25/2006 81972 EKG Tracing & Interpretation Completed 09/22/2005 92352 EKG Tracing & Interpretation Completed 07/21/2005 68936 Holter Monitor Completed 07/16/2005 27512 EKG Tracing & Interpretation Completed 07/09/2005 11898 EKG Tracing & Interpretation Completed 07/02/2005 60784 EKG Tracing & Interpretation Completed 06/25/2005 77096 EKG Tracing & Interpretation Completed 06/17/2005 37409 EKG Tracing & Interpretation Completed 06/03/2005 63489 EKG Tracing & Interpretation Completed 04/22/2005 14369 Echocardiogram Completed 04/22/2005 11335 Pulse Doppler & Continuous Wave Completed 04/22/2005 00541 Color Doppler Completed 04/20/2005 92731 ECHO/Stress Completed 04/20/2005 99223 Stress Test Completed 04/08/2005 89629 EKG Tracing & Interpretation Completed 05/21/2004 90066 EKG Tracing & Interpretation Completed 03/05/2004 23113 EKG Tracing & Interpretation Completed 02/20/2004 76384 Holter Monitor Interpretation Completed 02/14/2004 15839 Color Doppler Completed 02/14/2004 64426 Pulse Doppler & Continuous Wave Completed 02/14/2004 86633 Echocardiogram Completed 02/10/2004 48237 ECHO/Stress Completed 02/10/2004 13047 Stress Test Completed 02/10/2004 29490 IV Infusion For DX/Upt To 1 HR. Completed 02/10/2004 98484 Intro. Needle Or Intracath.,Vein Completed Encounters Type Date Location Provider Dx Diagnosis Office Visit 10/20/2018 [facility] Danny Morrison E78.5 Hyperlipidemia , 1:20p Of Clay Hidalgo M.D. unspecified I25.118 [facility] heart disease of [place] cor art w oth ang pctrs I48.2 Chronic atrial fibrillation I35.0 Nonrheumatic aortic (valve) stenosis I73.9 Peripheral vascular disease, unspecified Z95.0 Presence of cardiac pacemaker Office Visit 06/16/2018 2:00p [facility] Shanna SDuke I34.2 Nonrheumatic Of [place] Foster, N.P. mitral (valve) stenosis I49.5 Sick sinus syndrome E78.5 Hyperlipidemia, unspecified I25.118 [facility] heart disease of [place] [facility] Office Visit 03/02/2018 11:00a [facility] Shanna SDuke Foster, I49.5 Sick sinus N.P. syndrome I35.0 Nonrheumatic aortic (valve) stenosis I10 Essential (primary) hypertension Z95.0 Presence of cardiac pacemaker I25.118 [facility] heart disease of [place] cor [facility] E78.5 Hyperlipidemia, unspecified Office Visit 01/26/2018 10:30a [facility] Shanna SDuke Lozano, I49.5 Sick sinus Of [place] Boss N.P. syndrome I35.0 Nonrheumatic aortic (valve) stenosis I10 Essential (primary) hypertension Z95.0 Presence of cardiac pacemaker I25.118 [facility] heart disease of [place] cor [facility] E78.5 Hyperlipidemia, unspecified I50.32 Chronic diastolic (congestive) heart failure Office Visit 12/20/2017 1:20p [facility] Danny Morrison I49.5 Sick sinus Yasmin Hidalgo syndrome I35.0 Nonrheumatic aortic (valve) stenosis R06.00 Dyspnea, unspecified Z95.0 Presence of cardiac pacemaker I10 Essential (primary) hypertension I50.32 Chronic diastolic (congestive) heart failure I25.118 [facility] heart disease of [place] cor [facility] E78.5 Hyperlipidemia, unspecified Office Visit 08/15/2017 10:30a [facility] Kenia Syed, I10 Essential (primary) PA hypertension I50.32 Chronic diastolic (congestive) heart failure I35.0 Nonrheumatic aortic (valve) stenosis I25.118 [facility] heart disease of [place] [facility] Office Visit 07/22/2017 10:30a [facility] Kenia Syed, I50.32 Chronic diastolic Of [place] PA (congestive) heart failure I10 Essential (primary) hypertension I25.118 [facility] disease [facility] [place] [facility] I[facility].0 Nonrheumatic aortic (valve) stenosis E78.5 Hyperlipidemia, unspecified Office Visit 07/13/2017 1:10p [facility] Danny Morrison R07.9 Chest pain, Yasmin Hidalgo unspecified I35.0 Nonrheumatic aortic (valve) stenosis R94.31 Abnormal electrocardiogram [ECG] [EKG] I25.118 [facility] heart disease of [place] [facility] R06.02 Shortness of breath I50.32 Chronic diastolic (congestive) heart failure I10 Essential (primary) hypertension Office Visit 06/01/2017 10:30a [facility] Kenia Syed R07.9 Chest pain, PA unspecified I35.0 Nonrheumatic aortic (valve) stenosis Z95.0 Presence of cardiac pacemaker I25.118 [facility] heart disease of [place] cor [facility] R06.02 Shortness of breath Office Visit 03/06/2017 9:56a [facility] Tiny Brewster, R07.1 Chest pain on Assoc,pc M.D. breathing Hospitalists I35.0 Nonrheumatic aortic (valve) stenosis Z84.89 Family history of other specified conditions Office Visit 03/05/2017 9:56a [facility] Tiny Brewster, R07.1 Chest pain on Assoc,pc M.D. breathing Hospitalists I35.0 Nonrheumatic aortic (valve) stenosis Z84.89 Family history of other specified conditions Office Visit 03/02/2017 2:30p [facility] Danny Morrison I21.4 Non-St elevation Yasmin Hidalgo (Nstemi) myocardial infarction I48.91 Unspecified atrial fibrillation E11.9 Type 2 diabetes mellitus without complications I10 Essential (primary) hypertension I35.0 Nonrheumatic aortic (valve) stenosis I25.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 w/o ang pctrs Office 01/19/2017 [facility] Miguel I21.4 Non-St Visit 12:40p Assoc,pc DAX Jweell elevation Hospitalists (Nstemi) myocardial infarction I48.91 Unspecified atrial fibrillation E11.9 Type 2 diabetes mellitus without complications I10 Essential (primary) hypertension Office 01/18/2017 [facility] Miguel I21.4 Non-St Visit 12:39p Assoc,pc [place] PA elevation Hospitalists (Nstemi) myocardial infarction I48.91 Unspecified atrial fibrillation E11.9 Type 2 diabetes mellitus without complications I10 Essential (primary) hypertension Office Visit 01/18/2017 3:01p [facility] Jose Alberto Smiley I25.10 [facility] heart Of Clay Wylie M.D. disease of [place] coronary artery w/o ang pctrs Office Visit 01/17/2017 12:38p [facility] Demetria Mata, I21.4 Non-St elevation Assoc,pc N.P. (Nstemi) Hospitalists myocardial infarction E11.9 Type 2 diabetes mellitus without complications I48.91 Unspecified atrial fibrillation I10 Essential (primary) hypertension Office Visit 08/09/2016 3:00p [facility] Kenia Syed, I35.0 Nonrheumatic aortic PA (valve) stenosis I10 Essential (primary) hypertension R06.02 Shortness of breath Z95.0 Presence of cardiac pacemaker I48.2 Chronic atrial fibrillation R19.7 Diarrhea, unspecified Office Visit 07/14/2016 1:20p [facility] Danny Morrison I35.0 Nonrheumatic Yasmin Hidalgo aortic (valve) stenosis I10 Essential (primary) hypertension I48.2 Chronic atrial fibrillation I25.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 w/o ang pctrs E78.0 Pure hypercholesterolemia Office Visit 02/25/2016 9:30a [facility] Kenia Syed, I35.0 Nonrheumatic aortic PA (valve) stenosis I10 Essential (primary) hypertension I48.2 Chronic atrial fibrillation I73.9 Peripheral vascular disease, unspecified I25.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 w/o ang pctrs Office Visit 01/05/2016 11:20a [facility] Joaquín De La Paz R06.02 Shortness of Of [place] [facility] Ginger, breath FACC, FSCAI H53.2 Diplopia Office Visit 12/19/2015 [facility] Bipin Garcia, H53.2 Diplopia 2:31p Clinic Office Visit 12/01/2015 [facility] Danny Morrison R06.02 Shortness of 10:40a Yasmin Hidalgo breath I35.0 Nonrheumatic aortic (valve) stenosis I73.9 Peripheral vascular disease, unspecified I10 Essential (primary) hypertension I48.2 Chronic atrial fibrillation Office Visit 11/12/2015 11:20a [facility] Joaquín De La Paz R06.02 Shortness of Of [place] [facility] [place] Ginger, breath FACC, FSCAI I35.0 Nonrheumatic aortic (valve) stenosis Office Visit 09/30/2015 2:00p [facility] Kenia Syed, I10 Essential (primary) PA hypertension I65.23 Occlusion and stenosis of bilateral carotid arteries I35.0 Nonrheumatic aortic (valve) stenosis Z95.0 Presence of cardiac pacemaker I48.2 Chronic atrial fibrillation E78.0 Pure hypercholesterolemia I25.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 w/o ang pctrs R06.02 Shortness of breath Office Visit 09/12/2015 2:20p [facility] Danny Morrison I48.2 Chronic atrial Yasmin Hidalgo fibrillation I35.0 Nonrheumatic aortic (valve) stenosis R07.9 Chest pain, unspecified I50.9 Heart failure, unspecified Office Visit 08/27/2015 11:00a [facility] Kenia Syed, I10 Essential (primary) PA hypertension I48.2 Chronic atrial fibrillation I65.23 Occlusion and stenosis of bilateral carotid arteries E78.0 Pure hypercholesterolemia Z95.0 Presence of cardiac pacemaker I35.0 Nonrheumatic aortic (valve) stenosis R06.02 Shortness of breath Office Visit 08/22/2015 3:30p [facility] Danny Morrison I34.0 Nonrheumatic mitral Cardiology Yasmin Hidalgo (valve) insufficiency I10 Essential (primary) hypertension E78.0 Pure hypercholesterolemia I35.0 Nonrheumatic aortic (valve) stenosis I48.2 Chronic atrial fibrillation R07.9 Chest pain, unspecified I65.23 Occlusion and stenosis of bilateral carotid arteries Office Visit 07/03/2015 2:40p [facility] Danny Morrison 424.0 Mitral Valve Yasmin Hidalgo Disorder 401.1 Hypertension Benign 272.0 Hypercholesterolemia Pure 496 COPD Airway Obstruction Chronic Not Class Elsewhere 424.1 Aortic Valve Disorder 785.9 Cardiovascular Symptoms Other 786.50 Pain Chest Unspec Office Visit 04/16/2015 10:30a [facility] DAX Torres 424.1 Aortic Valve Disorder V45.01 Cardiac Pacemaker In Situ Postsurgical 424.0 Mitral Valve Disorder 401.9 Hypertension Unspec 272.0 Hypercholesterolemia Pure 427.31 Atrial Fibrillation 782.3 Edema Office Visit 03/06/2015 1:40p [facility] a[facility]nny Morrison 427.31 Atrial Cardiology Yasmin Hidalgo Fibrillation 424.0 Mitral Valve Disorder 424.1 Aortic Valve Disorder 401.9 Hypertension Unspec 272.0 Hypercholesterolemia Pure 782.3 Edema Office Visit 06/12/2014 10:00a [facility] Jose Alberto Smiley 427.31 Atrial Of Clay Wylie M.D. Fibrillation 427.81 Sinoatrial Node Dysfunction V45.01 Cardiac Pacemaker In Situ Postsurgical Office Visit 06/10/2014 11:40a [facility] Danny Morrison 427.Italo Atrial Cardiology Yasmin Hidalgo Fibrillation 427.81 Sinoatrial Node Dysfunction V45.01 Cardiac Pacemaker In Situ Postsurgical 424.0 Mitral Valve Disorder 414.01 Coronary Atherosclerosis [place] 424.1 Aortic Valve Disorder 401.9 Hypertension Unspec Office Visit 08/27/2013 3:00p [facility] Danny Morrison 424.0 Mitral Valve Yasmin Hidalgo Disorder 427.31 Atrial Fibrillation 427.81 Sinoatrial Node Dysfunction Office Visit 04/05/2013 3:20p [facility] Danny Morrison 427.81 Sinoatrial Node Yasmin Hidalgo Dysfunction 996.01 Cardiac Pacemaker (Electrode) Complication 427.31 Atrial Fibrillation 424.0 Mitral Valve Disorder Office Visit 09/11/2012 2:40p [facility] Morrison 427.Italo Atrial Cardiology Yasmin Hidalgo Fibrillation 427.81 Sinoatrial Node Dysfunction 414.01 Coronary Atherosclerosis [place] 786.50 Pain Chest Unspec Office Visit 02/10/2012 3:00p [facility] Frank.[facility] At[facility] Cardiology Yasmin Hidalgo Fibrillation 427.81 Sinoatrial Node Dysfunction 424.0 Mitral Valve Disorder 272.0 Hypercholesterolemia Pure Office Visit 05/28/2011 2:20p [facility] Morrison 427.Italo Atrial Cardiology Yasmin Hidalgo Fibrillation 427.81 Sinoatrial Node Dysfunction 414.01 Coronary Atherosclerosis [place] 424.0 Mitral Valve Disorder Office Visit 07/21/2010 3:20p [facility] Danny Morrison 427.81 Sinoatrial Node Yasmin Hidalgo Dysfunction 427.31 Atrial Fibrillation V45.01 Cardiac Pacemaker In Situ Postsurgical 414.01 Coronary Atherosclerosis [place] Office Visit 01/13/2010 [facility] 414.01 Coronary 9:00a Geena Hidalgo M.D. Atherosclerosis [place] 785.2 Murmur Cardiac Undiagnosed Office Visit 04/24/2009 3:20p [facility] Danny Morrison 427.81 Sinoatrial Node Yasmin Hidalgo Dysfunction 424.0 Mitral Valve Disorder 427.31 Atrial Fibrillation 272.0 Hypercholesterolemia Pure V45.01 Cardiac Pacemaker In Situ Postsurgical Office Visit 08/28/2008 3:20p [facility] Danny Morrison 427.81 Sinoatrial Node Yasmin Hidalgo Dysfunction V45.01 Cardiac Pacemaker In Situ Postsurgical 424.0 Mitral Valve Disorder 427.31 Atrial Fibrillation 272.0 Hypercholesterolemia Pure 250.00 Diabetes Mellitus W/O Compl Type II Or Unspec Controlled Office Visit 01/25/2008 3:40p [facility] Morrison 427.31 Atrial Cardiology Yasmin Hidalgo Fibrillation 401.1 Hypertension Benign 272.0 Hypercholesterolemia Pure 427.81 Sinoatrial Node Dysfunction Office Visit 07/26/2007 3:20p [facility] Morrison 427.31 Atrial Cardiology Yasmin Hidalgo Fibrillation 401.1 Hypertension Benign 272.0 Hypercholesterolemia Pure 424.0 Mitral Valve Disorder Office Visit 06/22/2007 [facility] 414.01 Coronary 3:20p eGena Hidalgo M.D. Atherosclerosis [place] 427.31 Atrial Fibrillation 401.1 Hypertension Benign 272.0 Hypercholesterolemia Pure Office Visit 04/21/2007 Racquel Morrison 414.01 Coronary 2:20p Geena Hidalgo M.D. Atherosclerosis [place] 427.31 Atrial Fibrillation 427.81 Sinoatrial Node Dysfunction Office Visit 03/22/2007 Racquel Morrison 414.01 Coronary 3:40p Geena Hidalgo M.D. Atherosclerosis [place] 427.31 Atrial Fibrillation 427.81 Sinoatrial Node Dysfunction 424.1 Aortic Valve Disorder Office Visit 12/21/2006 3:00p Racquel Morrison 427.31 Atrial Cardiology Yasmin Hidalgo Fibrillation 427.81 Sinoatrial Node Dysfunction 780.4 Dizziness & Giddiness 401.1 Hypertension Benign Office Visit 06/08/2006 Racquel Morrison 414.01 Coronary 2:00p Cardiology Yasmin Hidalgo Atherosclerosis [place] 401.1 Hypertension Benign 272.0 Hypercholesterolemia Pure Office Visit 03/25/2006 3:40p Racquel Morrison 427.31 Atrial Cardiology Yasmin Hidalgo Fibrillation 414.01 Coronary Atherosclerosis [place] 272.0 Hypercholesterolemia Pure Office Visit 09/22/2005 1:20p [facility] Danny Morrison 413.9 Angina Pectoris Yasmin Hidalgo Other Unspec 414.01 Coronary Atherosclerosis [place] 427.31 Atrial Fibrillation Office Visit 07/16/2005 9:00a [facility] Geena Morrison 413.9 Angina Pectoris Yasmin Hidalgo Other Unspec 414.01 Coronary Atherosclerosis [place] 427.31 Atrial Fibrillation Office Visit 07/09/2005 9:00a Racquel Morrison 427.31 Atrial Cardiology Yasmin Hidalgo Fibrillation 780.4 Dizziness & Giddiness Office Visit 07/02/2005 Racquel Morrison 414.01 Coronary 8:40a Geena Hidalgo M.D. Atherosclerosis [place] 427.31 Atrial Fibrillation Office Visit 06/25/2005 8:40a [facility] Danny Morrison 786.50 Pain Dheeraj Hidalgo M.D. Unspec 414.01 Coronary Atherosclerosis [place] 427.31 Atrial Fibrillation Office Visit 06/17/2005 9:00a [facility] Danny Morrison 786.50 Pain Dheeraj Hidalgo M.D. Unspec 414.01 Coronary Atherosclerosis [place] Office Visit 06/03/2005 2:20p [facility] Geena Morrison 786.50 Pain Chest Yasimn Hidalgo Unspec 424.1 Aortic Valve Disorder 401.1 Hypertension Benign Office Visit 04/20/2005 Racquel Morrison 794.31 Electrocardiogram 2:00p Geena Hidalgo M.D. (ECG) (EKG) Abnormal 427.31 Atrial Fibrillation 433.10 Occlusion & Stenosis Carotid Artery W/O Cerebral Infarction Office Visit 04/19/2005 9:40a [facility] Danny Morrison 780.2 Syncope & Yasmin Hidalgo Collapse 433.10 Occlusion & Stenosis Carotid Artery W/O Cerebral Infarction 401.1 Hypertension Benign Office Visit 04/08/2005 2:30p [facility] Danny Morrison 427.31 Atrial Cardiology Yasmin Hidalgo Fibrillation 424.1 Aortic Valve Disorder 433.10 Occlusion & Stenosis Carotid Artery W/O Cerebral Infarction 780.2 Syncope & Collapse Office Visit 05/21/2004 3:00p [facility] Danny Morrison 786.59 Pain Chest Yasmin Hidalgo Other 427.31 Atrial Fibrillation 401.1 Hypertension Benign Office Visit 04/08/2004 3:00p [facility] Danny Morrison 401.1 Hypertension Yasmin Hidalgo Benign 786.59 Pain Chest Other Office Visit 03/05/2004 [facility] Danny Morrison 786.09 Dyspnea & 9:40a Cardiology Yasmin Hidalgo Respiratory Abnormalities Other 401.1 Hypertension Benign 780.4 Dizziness & Giddiness Office Visit 02/10/2004 2:20p [facility] Danny Morrison 786.59 Pain Chest Yasmin Hidalgo Other 427.31 Atrial Fibrillation 785.2 Murmur Cardiac Undiagnosed 786.05 Shortness Of Breath Plan of Treatment Future Appointment(s):02/28/2019 6:20 am - [facility] Schedule [facility]10/20/2018 - Danny Hidalgo M.D.E78.5 Hyperlipidemia, [id number] Atherosclerotic heart disease of [place] coronary artery withI48.2 Chronic atrial fibrillationFollow up:ov 5 mI35.0 Nonrheumatic aortic ( valve) [id number] Peripheral vascular disease, [id number] Presence of cardiac pacemaker
--- NOTE | 2018-10-28 20:48 | ED ---
Neurological HPI - HPI Summary HPI Summary: Time seen by provider: 20:32. The patient is a 78F presenting to [facility] arriving by ambulance with a chief complaint of sudden onset stroke-symptoms possibly starting yesterday with worsening today around 16:00. Per family, the patient had been confused with mixing up names and forgetting information while she was on the phone with her granddaughter. The granddaughter went to the pt's house, where she lives alone, and it was found that her blood sugar was 78, which is low for her normally given hx of diabetes. They also checked for unilateral weakness and face droop, which were negative at the time. After she ate, the patient seemed to be normal again. Today, the patient spoke to her granddaughters again at 12:00, and they report that she seemed normal then. One of the granddaughters had taken the pt' s car to get inspected today, and she called the pt to return the car, but the pt did not answer the call at 16:00. The granddaughter went to the pt's house, where the pt was found lying on the ground after falling off of the couch. When EMS arrived at approximately 19:30 for BLS for falling, they found that the patient was unable to straighten her left arm for blood pressure reading, she had slight slurring of her speech and left-sided facial droop. She additionally was confusing her right side for her left. She currently takes Warfarin and Plavix, which she had halted taking for five days because she recently had an endoscopy for draining a cyst on her pancreas, but the anticoagulants were resumed three nights ago after the procedure. She has hx of carotid scans and hypercholesterolemia. - History of Current Complaint Stated Complaint: POSS STROKE Hx Obtained From: Patient, Family/Loading Shovel Oiler - granddaughters and daughter, EMS Hx Last Menstrual Period: na Onset/Duration: Sudden Onset, Started hours ago - started yesterday, seemed to resolve, but returned today, Still Present Timing: Sudden Onset Onset Severity: Severe Current Severity: Moderate Neurological Deficit Location: LUE Pain Scale Used: 0-10 Numeric Character: Motor Weakness - in LUE, Confusion, Other: - slight slurred speech and left-sided facial droop Aggravating: Nothing Alleviating: Nothing Associated Signs and Symptoms: Positive: Confusion Related Hx: Anticoagulants - Additional Pertinent History Primary Care Physician: [id number] - Allergy/Home Medications Allergies/Adverse Reactions: Allergies Allergy/AdvReac Type Severity Reaction Status Date / Time acetaminophen [From Tylenol] Allergy Intermediate Anaphylatic Verified 10/28/18 21:27 Shock diazepam [From Valium] Allergy Blurred Verified 10/28/18 21:27 Vision diphenhydramine Allergy Blurred Verified 10/28/18 21:27 [From Benadryl] Vision ezetimibe [From Vytorin] Allergy Muscle Ache Verified 10/28/18 21:27 niacin Allergy Itching Verified 10/28/18 21:27 simvastatin [From Vytorin] Allergy Muscle Ache Verified 10/28/18 21:27 [id number] Reductase Allergy Muscle Ache Verified 10/28/18 21:27 Inhibitor PACER -NOT MR COMPATIBLE Allergy PACER -NOT Uncoded 10/28/18 21:27 MR COMPATIBLE Home Medications: Home Medications Cholecalciferol (Vitamin D3) [Vitamin D3] 1,000 unit PO DAILY 10/28/18 [History Confirmed 10/28/18] Cyanocobalamin (Vitamin B-12) [B-12] 1,500 mcg PO TID 10/28/18 [History Confirmed 10/28/18] Irbesartan 75 mg PO DAILY 10/28/18 [History Confirmed 10/28/18] Levothyroxine Sodium 125 mcg PO DAILY 10/28/18 [History Confirmed 10/28/18] Nitroglycerin 0.4 mg SL ONCE PRN 10/28/18 [History Confirmed 10/28/18] [place]-3 Fatty Acids/Fish Oil [Fish Oil 1,000 mg Capsule] 1 each PO BID 10/28/18 [History Confirmed 10/28/18] Pancrelipase (NF) [Creon (NF)] 24,000 units PO TID WITH MEALS 10/28/18 [History Confirmed 10/28/18] Rosuvastatin Calcium [Crestor] 5 mg PO DAILY 10/28/18 [History Confirmed ] Spironolactone 25 mg PO DAILY 10/28/18 [History Confirmed 10/28/18] Warfarin Sodium [Coumadin] 2.5 mg PO DAILY 10/28/18 [History Confirmed 10/28/18] dilTIAZem HCl [Diltiazem HCl ER] 180 mg PO DAILY 10/28/18 [History Confirmed 03/11] glipiZIDE [Glipizide] 5 mg PO DAILY 10/28/18 [History Confirmed 10/28/18] PMH/Surg Hx/FS Hx/Imm Hx Endocrine/Hematology History: Reports: Hx Anticoagulant Therapy, Hx Diabetes - TYPE II- ON ORAL MEDICATION FOR, Hx Thyroid Disease - HYPOTHYROID Cardiovascular History: Reports: Hx Angina, Hx Auto Implanted Cardiovert Defib - pacer, Hx Coronary Artery Disease, Hx Hypercholesterolemia, Hx Hypertension - ON MEDICATION FOR, Hx Pacemaker/ICD - NOT MR COMPATIBLE ( ADDRL1 ADAPTA), Hx Valvular Heart Disease, Other Cardiovascular Problems/Disorders - HX OF A-FIB; CAROTID STENOSIS Denies: Hx Myocardial Infarction Respiratory History: Denies: Hx Asthma, Hx Chronic Obstructive Pulmonary Disease (COPD) GI History: Reports: Hx Gastroesophageal Reflux Disease, Hx Ulcer - HX OF History: Denies: Hx Renal Disease Musculoskeletal History: Reports: Hx Arthritis - NECK, HANDS, KNEES Denies: Hx Osteoporosis Sensory History: Reports: Hx Cataracts, Hx Contacts or Glasses - GLASSES-READING Denies: Hx Hearing Aid Opthamlomology History: Reports: Hx Cataracts, Hx Contacts or Glasses - GLASSES- READING Psychiatric History: Reports: Hx Depression - Cancer History Cancer Type, Location and Year: basal cell carcinoma-nose - Surgical History Surgery Procedure, Year, and Place: appe-194, miscarriages wtih D&c. pacer- 2006 AND 2013. tonsils AND ADENOIDECTOMY-1946. carotid endarterectomy- BILATERAL. [place]. ADHESIONS-1979. BILATERAL CATARACTS-2006 Hx Anesthesia Reactions: No Infectious Disease History: Reports: History Other Infectious Disease - [facility]re - 2002 Denies: Hx Clostridium Difficile, Hx Hepatitis, Hx Human Immunodeficiency Virus (HIV), Hx of Known/Suspected MRSA, Hx Shingles, Hx Tuberculosis, Traveled Outside the [place] in Last 30 Days - Family History Known Family History: Positive: Cardiac Disease - CAD, [place] - Social History Alcohol Use: None Hx Substance Use: No Substance Use Type: Reports: None Hx Tobacco Use: Yes Smoking Status (MU): Former Smoker Amount Used/How Often: 3/4 PPD X 20 YEARS Length of Time of Smoking/Using Tobacco: 2012 Have You Smoked in the Last Year: No Review of Systems Neurological: Other - confusion, left facial droop, forgetful Positive: Weakness - LUE, Slurred Speech - slighty slurred per EMS All Other Systems Reviewed And Are Negative: Yes Physical Exam - Summary Physical Exam Summary: Appearance: Well-appearing, Well-nourished, lying in bed comfortably Skin: Warm, dry, no obvious rash Eyes: sclera anicteric, no conjunctival pallor ENT: mucous membranes moist, pharynx appears normal Neck: Supple, nontender Respiratory: Clear to auscultation, no signs of respiratory distress Cardiovascular: Normal S1, S2. No murmurs. Normal distal pulses in tibial and radial bilaterally. Abdomen: Soft, nontender, normal active bowel sounds present Musculoskeletal: Strength/ROM Intact in all extremities except LUE, Motor function in all extremities except LUE is normal and symmetric; left arm is contracted but seems to have a grasp weaker than the right side There is no rigidity or tremor noted. Neurological: awake and alert, oriented to person and place, slightly disoriented speech, profound hemineglect, follows finger gazing to the right but can't tract to the left, extinction to double simultaneous stimulation to left, left arm is contracted but seems to have a grasp weaker than the right side, slight left facial droop. Cranial nerves grossly intact Psychiatric: affect is normal, does not appear anxious or depressed Triage Information Reviewed: Yes Vital Signs Reviewed: Yes - [place] Coma Scale Best Eye Response: 4 - Spontaneous Best Motor Response: 6 - Obeys Commands Best Verbal Response: 5 - Oriented Coma Scale Total: 15 Diagnostics - Laboratory Result Diagrams: 10/28/18 21:15 10/28/18 21:15 Lab Statement: Any lab studies that have been ordered have been reviewed, and results considered in the medical decision making process. - CT Brain CT CT Interpretation Completed By: Radiologist Summary of CT Findings: 1. No acute intracranial abnormality. 2. Chronic microvascular ischemic changes. 3. ASPECT score of 10. ED physician has reviewed this report. Head CTA CT Interpretation Completed By: Radiologist Summary of CT Findings: 1. Right: Flap at origin of right internal carotid artery with near-complete occlusion with small amount of contrast seen distally in the distal portion of the right internal carotid artery in the neck. Findings concerning for acute. dissection. The right vertebral artery is extremely small in caliber likely an anatomical variant with a sliver of contrast seen in the neck. 2. Left: A flap is seen in the proximal left internal carotid which can be artifactual versus possible dissection (Series 4, image 96). The left internal carotid artery remains widely patent. There is multifocal moderate to severe stenosis of the proximal left vertebral artery with calcified plaque. ED physician has reviewed this report. - EKG 21:05 Summary of EKG Findings: 67 BPM. V-paced rhythm. NIH Scale - NIH Scale Level of Consciousness: Alert/Keenly Responsive Ask Patient the Month and His/Her Age: Both Correct Ask Pt to Open/Close Eyes and Airset Molder/Release Non-Paretic Hand: Both Correctly Best Gaze (Only Horizontal Eye Movement): Partial Gaze Palsy Visual Field Testing: Partial Hemianopia Facial Paresis-Pt to Smile & Close Eyes or Grimace Symmetry: Minor Paralysis Motor Function - Right Arm: No Drift-Holds 10 Seconds Motor Function - Left Arm: Drifts LT 10 seconds Motor Function - Right Leg: Drifts LT 10 seconds Motor Function - Left Leg: Drifts LT 10 seconds Limb Ataxia-Must be out of Proportion to Weakness Present: Absent Sensory (Use Pinprick to Test Arms/Legs/Trunk/Face): Pinprick Less on Affected Best Language (Describe Picture, Name Items): No Aphasia Dysarthria (Read Several Words): Normal Extinction and Inattention: Profound Elvis-Inattention Total Score: 9 NIH Stroke Scale Comment: limited by hemineglect Course/Dx - Diagnoses Provider Diagnoses: Ischemic stroke During the Visit The Following Alert/Code Occurred: Code Roland - called at 2037 - Physician Notifications Discussed Care Of Patient With: Dr. Umana - stroke neurology at [facility] Discussed With Above Provider: 21:10 Instructed by Provider To: Transfer - I consulted with Dr. Umana for auto acceptance of the patient for transfer for embolectomy by helicopter. At 21:51, I consulted with [facility] receiving stroke physician, Dr. Gleason, for auto -acceptance for transfer by ambulance. Admit/Transition Orders Completed By ED Provider: Yes Reason For Transfer: Specialty or service not available at [facility]. - Patient needs embolectomy. - Critical Care Time Critical Care Time: 30-74 min - 45 minutes of critical care time Discharge - Sign-Out/Discharge Documenting (check all that apply): Patient Departure - Patient will be transferred to [facility] for further care. - Discharge Plan Condition: Critical Disposition: TRANS HIGHER L OF CARE FAC Referrals: Clarke Cohen MD [Primary Care Provider] - - Billing Disposition and Condition Condition: CRITICAL Disposition: Trans Higher Lvl of Care Fac - Attestation Statements Document Initiated by León: Yes Documenting Scribe: Sue Reyes Provider For Whom León is Documenting (Include Credential): Dr. Russ Morelos MD Scribe Attestation: Sue Martinez scribed for Dr. Russ Morelos MD on 10/28/18 at 2201. Scribe Documentation Reviewed: Yes Provider Attestation: The documentation as recorded by the Sue esparza accurately reflects the service I personally performed and the decisions made by me, Dr. Russ Morelos MD Status of Scribe Document: Viewed
[2018-10-28] MEDS ORDERED: Iodixanol* (CONTRAST) 320 MG/ML 100 ML SDV IV ONE (21:03)
[2018-10-28 21:27] LABS: ABS Basophils 0 10^3/ul (0-0.2); ABS Eosinophils 0 10^3/ul (0-0.6); ABS Lymphocytes 0.9 10^3/ul (1.0-4.8); ABS Monocytes 0.7 10^3/ul (0-0.8); ABS Neutrophils 12.7 10^3/ul (1.5-7.7); ABS Nucleated RBC 0 10^3/ul; Eosinophil % 0.1 %; Hematocrit 43 % (35-47); Hemoglobin 14.6 g/dl (12.0-16.0); Lymphocyte % 6.6 %; Mean Corpuscular HGB Conc 34 g/dl (31-36); Mean Corpuscular Hemoglobin 30 pg (27-31); Mean Corpuscular Volume 90 fL (80-97); Mean Platelet Volume 9.1 fL (7.4-10.4); Nucleated Red Blood Cells % 0; Platelet Count 296 10^3/ul (150-450); Red Blood Count 4.82 10^6/ul (4.00-5.40); Red Cell Distribution Width 13 % (10.5-15); White Blood Count 14.4 10^3/ul (3.5-10.8)
[2018-10-28 21:44] LABS: Albumin 3.6 g/dL (3.2-5.2); BUN/Creatinine Ratio 36.5 (8-20); Calcium 9.5 mg/dL (8.6-10.3); EGFR Non-African American 64.5 (>60); Globulin 3.6 g/dL (2-4); HDL Cholesterol 37.5 mg/dL; Potassium 4.6 mmol/L (3.5-5.0); Total Bilirubin 0.6 mg/dL (0.2-1.0); Total Protein 7.2 g/dL (6.4-8.9)
[2018-10-28 21:50] LABS: Activated Partial Thrombo Time 34.5 seconds (26.0-36.3); INR 1.11 (0.77-1.02)
[2018-10-28 21:55] VITALS: BP 151/92
--- NOTE | 2018-10-28 22:13 | ED ---
Progress - Progress Note Progress Note: Time seen by provider: 20:32. The patient is a 78F presenting to [facility] arriving by ambulance with a chief complaint of sudden onset stroke-symptoms possibly starting yesterday with worsening today around 16:00. Family talked to patient yesterday, but she seemed confused and had difficulty with memorization until she was fed because her blood sugar was decreased. She was last seen well at 12: 00 today when she talked to her granddaughters. At 16:00, the granddaughter noticed the patient was not answering the phone. [facility], where it was found the pt was lying on the ground. EMS was called for the fall, where they found that the pt had motor weakness in the LUE, slight speech slurring, slight left facial droop, and hemineglect. She takes Plavix and Warfarin, which was halted for five days for an operation but resumed three days ago. Upon physical exam, the patient exhibits awake and alert, oriented to person and place, slightly disoriented speech, profound hemineglect, follows finger gazing to the right but can't tract to the left, extinction to double simultaneous stimulation to left, left arm is contracted but seems to have a grasp weaker than the right side, and slight left facial droop. NIH: 9 (limited by hemineglect), GCS: 15. In the ED course, the patient was given Ns and Iodixanol (for CTA). Blood work reveals slightly elevated WBCs, neuts, and glucose, lactic acid of 2.4, and troponin of 0.05. EKG reveals V-paced rhythm. CXR is negative. Brain CT reveals no acute abnormalities with chronic ischemic changes with ASPECT score of 10. Head CTA reveals right carotid artery dissection. Patient arrived in CT at 20:36. Kemal Roland was called at 20:38. Critical care time of 45 minutes. She is diagnosed with ischemic stroke. I consulted with with Dr. Umana, neurology at [facility], at 21:10; he accepts the patient for transfer for embolectomy with auto-launch. Transfer center cancels and sends [facility] because there are no flights at this time. Dr. Garcia, neurology, was also called at 21:45 to aide in deciding patient transfer. At 21:51, I consulted with [facility] for auto- acceptance for transfer by ambulance because the trip is shorter. Patient agrees with this plan and understands the need for transfer. - Results/Orders Results/Orders: CXR: No acute disease. ED physician has reviewed this report. Course/Dx - Course Course Of Treatment: The patient is a 78F presenting to [facility] arriving by ambulance with a chief complaint of sudden onset stroke-symptoms possibly starting yesterday with worsening today around 16:00. Family talked to patient yesterday, but she seemed confused and had difficulty with memorization until she was fed because her blood sugar was decreased. She was last seen well at 12: 00 today when she talked to her granddaughters. At 16:00, the granddaughter noticed the patient was not answering the phone. [facility] was found the pt was lying on the ground. EMS was called for the fall, where they found that the pt had motor weakness in the LUE, slight speech slurring, slight left facial droop, and hemineglect. She takes Plavix and Warfarin, which was halted for five days for an operation but resumed three days ago. Upon physical exam, the patient exhibits awake and alert, oriented to person and place, slightly disoriented speech, profound hemineglect, follows finger gazing to the right but can't tract to the left, extinction to double simultaneous stimulation to left, left arm is contracted but seems to have a grasp weaker than the right side, and slight left facial droop. NIH: 9 (limited by hemineglect), GCS: 15. In the ED course, the patient was given Ns and Iodixanol (for CTA). Blood work reveals slightly elevated WBCs, neuts, and glucose, lactic acid of 2.4, and troponin of 0.05. EKG reveals V-paced rhythm. CXR is negative. Brain CT reveals no acute abnormalities with chronic ischemic changes with ASPECT score of 10. Head CTA reveals right carotid artery dissection. Patient arrived in CT at 20:36. Kemal Luan was called at 20:38. Critical care time of 45 minutes. She is diagnosed with ischemic stroke. I consulted with with Dr. Umana, neurology at [facility], at 21:10; he auto accepts the patient for transfer for embolectomy with auto-launch. Transfer center cancels and sends [facility] because there are no flights at this time. Dr. Garcia, neurology, was also called at 21:45 to aide in deciding patient transfer. At 21:51, I consulted with [facility] stroke for auto-acceptance for transfer by ambulance because the trip is shorter. Patient agrees with this plan and understands the need for transfer. - Diagnoses Provider Diagnoses: Ischemic stroke During the Visit The Following Alert/Code Occurred: Code Roland - called at 8 - Provider Notifications Time Discussed With Above Provider: 21:10 Instructed by Provider To: Transfer - I consulted with Dr. Umana, stroke neuro at [facility], for auto acceptance of the patient for transfer for embolectomy by helicopter. At 21:51, I consulted with [facility] receiving stroke physician, Dr. Gleason, for auto-acceptance for transfer by ambulance. Admit/Transition Orders Completed By ED Provider: Yes Reason For Transfer: Specialty or service not available at [facility]. - Patient needs embolectomy. - Critical Care Time Critical Care Time: 30-74 min - 45 minutes of critical care time Discharge - Sign-Out/Discharge Documenting (check all that apply): Patient Departure - Patient transferred to [facility] to Dr. Gleason by ambulance. - Discharge Plan Condition: Critical Disposition: TRANS HIGHER LVL OF CARE FAC Referrals: Clarke Cohen MD [Primary Care Provider] - - Billing Disposition and Condition Condition: CRITICAL Disposition: Trans Higher Lvl of Care Fac - Attestation Statements Document Initiated by León: Yes Documenting Scribe: Sue Reyes Provider For Whom León is Documenting (Include Credential): Dr. Russ Morelos MD Scribe Attestation: Sue Martinez scribed for Dr. Russ Morelos MD on 10/28/18 at [id number]. Scribe Documentation Reviewed: Yes Provider Attestation: The documentation as recorded by the Sue esparza accurately reflects the service I personally performed and the decisions made by me, Dr. Russ Morelos MD Status of Scribe Document: Viewed
== END 2018-10-28 22:20 | disposition short-term general hospital (02) ==
LOC: ED 20:35
DX: I63.9 Cerebral infarction, unspecified (principal); R41.0 Disorientation, unspecified; Z87.891 Personal history of nicotine dependence; Z79.01 Long term (current) use of anticoagulants
CPT/HCPCS: 36415; 70450; 70496; 70498; 71045; 80053; 80061; 83605; 84484; 85025; 85610; 85730; 86850; 86900; 86901; 93005; 96360; 99285; Q9967